=== PATIENT | female | born 1960 | race Caucasian/White ===

== ENCOUNTER 2016-10-05 08:13 | Outpatient (CLI) | payer MEDICARE, MEDICAID ==
[2016-10-05] MEDS ORDERED: IOPAMIDOL-300 100 ML VIAL IVP ONE (09:05)
== END 2016-10-05 08:14 | disposition home or self-care (01) ==
DX: D37.9 Neoplasm of uncertain behavior of digestive organ, unspecified (principal); K76.0 Fatty (change of) liver, not elsewhere classified
CPT/HCPCS: 74177; Q9967

== ENCOUNTER 2016-10-06 15:31 | Emergency (ER) | payer MEDICARE, MEDICAID ==
[2016-10-06] MEDS ORDERED: diazePAM 5 MG TABLET PO STA (16:07)
[2016-10-06] MEDS ORDERED: diazePAM 5 MG TABLET PO ONE (16:14)
== END 2016-10-06 16:30 | disposition home or self-care (01) ==
DX: M54.41 Lumbago with sciatica, right side (principal); M62.830 Muscle spasm of back; M32.9 Systemic lupus erythematosus, unspecified; I10 Essential (primary) hypertension; E03.9 Hypothyroidism, unspecified; J44.9 Chronic obstructive pulmonary disease, unspecified
CPT/HCPCS: 99283; A9270

== ENCOUNTER 2016-11-16 16:00 | Outpatient (CLI) | payer MEDICARE, MEDICAID | END 2016-11-16 16:01 | disposition home or self-care (01) | DX: E06.9 Thyroiditis, unspecified (principal); E53.8 Deficiency of other specified B group vitamins; E61.1 Iron deficiency ==

== ENCOUNTER 2016-11-19 08:00 | Outpatient (CLI) | payer MEDICARE, MEDICAID | END 2016-11-19 08:01 | disposition home or self-care (01) | DX: E03.8 Other specified hypothyroidism (principal); E16.4 Increased secretion of gastrin ==

== ENCOUNTER 2017-02-01 08:01 | Outpatient (CLI) | payer MEDICARE, MEDICAID ==
[2017-02-01] MEDS ORDERED: GADOBUTROL 7.5 MMOL/7.5 ML VIAL IVP ONE ×2 (10:11)
== END 2017-02-01 08:02 | disposition home or self-care (01) ==
DX: R90.89 Other abnormal findings on diagnostic imaging of central nervous system (principal); R41.3 Other amnesia; Z51.81 Encounter for therapeutic drug level monitoring
CPT/HCPCS: 70553; 80053; A9585

== ENCOUNTER 2017-02-13 08:00 | Outpatient (CLI) | payer MEDICAID, MEDICARE | END 2017-02-13 08:01 | disposition home or self-care (01) | DX: K29.40 Chronic atrophic gastritis without bleeding (principal); E53.8 Deficiency of other specified B group vitamins ==

== ENCOUNTER 2017-03-27 13:50 | Outpatient (CLI) | payer MEDICARE, MEDICAID ==
[2017-03-27 20:16] LABS: THYROID STIMULATING HORMONE < 0.08 uIU/mL (0.34-5.60)
== END 2017-03-27 13:51 ==
LOC: LAB.WCP 13:50
PROVIDERS: ATTEND Physician Assistant Medical
DX: E03.9 Hypothyroidism, unspecified (principal)
CPT/HCPCS: 36415; 84439; 84443

== ENCOUNTER 2017-03-30 00:33 | Emergency (ER) | payer MEDICARE, MEDICAID ==
[2017-03-30 00:42] VITALS: BP 139/85
--- NOTE | 2017-03-30 00:59 | ED Physician Documentation ---
History of Present Illness - Stated complaint Stated Complaint: BODYACHE - Chief complaint Chief Complaint: General - History obtained from History obtained from: Patient - History of Present Illness Timing: Enter time (22:00) Improved by: no ameliorating factors Worsened by: no exacerbating factors - Additonal information Additional information: c/o sudden onset "whole body was shaking" (per patient) while lying in bed 10 PM tonight. She denies LOC and symptoms have completely resolved. Denies h/o similar symptoms. Review of Systems Constitutional: denies: Fever, Chills, Sweats Eyes: reports: Reviewed and negative Ears: reports: Reviewed and negative Cardiac: reports: Reviewed and negative Respiratory: reports: Reviewed and negative GI: reports: Reviewed and negative : denies: Dysuria, Frequency Neurologic: reports: Reviewed and negative PD PAST MEDICAL HISTORY - Past Medical History Cardiovascular: Hypertension, High cholesterol Respiratory: COPD, Emphysema, Sleep apnea Neuro: Headache/migraine, Other Endocrine/Autoimmune: HyPOthyroidism, Systemic lupus erythematosus, Other GI: GERD, Ulcers, Colon polyps : Incontinence HEENT: None Psych: Depression, Panic attacks Musculoskeletal: Fibromyalgia, Fatigue, Chronic back pain Derm: None - Past Surgical History General: Cholecystectomy, 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: Hysterectomy HEENT: Tonsil/Adenoidectomy - Present Medications Home Medications: Ambulatory Orders Medication Instructions Recorded Confirmed Albuterol Sulfate [Proair Hfa] 2 inh INH BID PRN 03/02/16 03/30/17 Dicyclomine HCl 2 cap PO BID 03/02/16 03/30/17 Hydrocodone/Acetaminophen [[place] 1 tab PO TID 03/02/16 03/30/17 10-325 Tablet] Levothyroxine Sodium [Levoxyl] 150 mg PO DAILY 03/02/16 03/30/17 Losartan/Hydrochlorothiazide 12.5 mg ORAL DAILY 03/02/16 03/30/17 [Hyzaar 100-12.5 Tablet] Pantoprazole Sodium 1 tab ORAL DAILY 03/02/16 03/30/17 Zolpidem [Ambien] 10 mg PO DAILY 03/02/16 03/30/17 raNITIdine [Zantac] 150 mg PO BID 03/02/16 03/30/17 Budesonide/Formoterol 80/4.5 60 puffs INH DAILY 03/02/17 07/01/17 [Symbicort] Fluoxetine HCl [Prozac] 40 mg PO DAILY 11/29/16 03/30/17 Linaclotide [Linzess] 290 mcg ORAL DAILY 03/30/17 03/30/17 Ondansetron HCl [Zofran] 4 mg ORAL TID 03/30/17 03/30/17 Oxybutynin Chloride [Ditropan Xl] 15 mg ORAL DAILY 03/30/17 03/30/17 Sucralfate 1 gm ORAL BID 03/30/17 03/30/17 - Allergies Allergies/Adverse Reactions: Allergies Allergy/AdvReac Type Severity Reaction Status Date / Time No Known Drug Allergies Allergy Verified 03/30/17 00:42 - Social History Does the pt smoke?: No Smoking Status: Former smoker - Immunizations Immunizations are current?: Yes PD ED PE NORMAL - Vitals Vital signs reviewed: Yes - General General: Alert and oriented X 3, No acute distress, Well developed/nourished - HEENT HEENT: PERRL, EOMI, Moist mucous membranes - Cardiac Cardiac: RRR, No murmur - Respiratory Respiratory: No respiratory distress, Clear bilaterally - Abdomen Abdomen: Soft, Non tender - Derm Derm: Normal color, Warm and dry - Extremities Extremities: No edema - Neuro Neuro: Alert and oriented X 3, hand suture winder 2-12 intact, No motor deficit, No sensory deficit, Normal speech Results - Vitals Vitals: Vital Signs - 24 hr 03/30/17 00:38 Temperature 36.8 C Heart Rate 72 Respiratory 16 Rate Blood Pressure 139/85 H O2 Saturation 97 Oxygen O2 Source Room air PD MEDICAL DECISION MAKING - ED course Complexity details: considered differential, d/w patient ED course: Patient describes nonrhythmic shaking of body and limbs which has completely resolved. She is in NAD and her physical exam is unremarkable. Emergent is not indicated at this time, and patient expresses understanding of plan to d/c without testing, will return if worse. Departure - Departure Disposition: 01 Home, Self Care Clinical Impression: Episode of shaking Condition: Good Instructions: ED Sciatica Discharge Date/Time: 03/30/17 01:27
== END 2017-03-30 01:27 | disposition home or self-care (01) ==
LOC: ED 00:33
DX: R25.9 Unspecified abnormal involuntary movements (principal); J44.9 Chronic obstructive pulmonary disease, unspecified; I10 Essential (primary) hypertension; E03.9 Hypothyroidism, unspecified; K21.9 Gastro-esophageal reflux disease without esophagitis; F41.0 Panic disorder [episodic paroxysmal anxiety]; F32.9 Major depressive disorder, single episode, unspecified; Z90.710 Acquired absence of both cervix and uterus; Z90.49 Acquired absence of other specified parts of digestive tract; Z87.891 Personal history of nicotine dependence
CPT/HCPCS: 99282; 99283

== ENCOUNTER 2017-04-11 10:03 | Outpatient (CLI) | payer MEDICAID, MEDICARE ==
[2017-04-11] MEDS ORDERED: BARIUM SULFATE 454 GM TUBE PO ONE (10:52)
[2017-04-11] MEDS ORDERED: BARIUM SULFATE 135 ML BOTTLE PO ONE (10:52)
--- NOTE | 2017-04-11 11:49 | XRAY Report ---
ESOPHAGRAM: 04/11/2017 CLINICAL INDICATION: Heartburn, atrophic gastritis. FINDINGS: Esophagram was performed in the upright and prone positions. The esophagus is normal in c aliber. The hypopharynx appears unremarkable. Diffuse tertiary contractions are seen. No ulceratio n or mass lesion is present. Reflux was visualized during the course of the exam. IMPRESSION: PRESBYESOPHAGUS. GASTROESOPHAGEAL REFLUX. NO EVIDENCE OF ULCER OR MASS LESION. FLUOROSCOPY TIME: 2 minutes, 4 seconds; 24 spot images obtained. JOB #: [id number] EXT JOB #:[id number]
== END 2017-04-11 10:04 | disposition home or self-care (01) ==
LOC: DI 10:03
PROVIDERS: ATTEND Physician Assistant Medical
DX: K22.8 Other specified diseases of esophagus (principal); K21.9 Gastro-esophageal reflux disease without esophagitis
CPT/HCPCS: 74220; A9270

== ENCOUNTER 2017-04-22 10:58 | Outpatient (CLI) | payer MEDICARE, MEDICAID | END 2017-04-22 10:59 | disposition home or self-care (01) | LOC: SC 10:58 | PROVIDERS: ATTEND Internal Medicine Pulmonary Disease | DX: G47.10 Hypersomnia, unspecified (principal); G47.8 Other sleep disorders; R51 Headache; G47.00 Insomnia, unspecified; R06.83 Snoring | CPT/HCPCS: 99203; G0463; 99212 ==

== ENCOUNTER 2017-05-13 19:41 | Outpatient (CLI) | payer MEDICARE, MEDICAID | END 2017-05-13 19:42 | disposition home or self-care (01) | LOC: SC 19:41 | PROVIDERS: ATTEND Internal Medicine Pulmonary Disease | DX: G47.61 Periodic limb movement disorder (principal); G47.31 Primary central sleep apnea | CPT/HCPCS: 95810 ==

== ENCOUNTER 2017-05-27 10:52 | Outpatient (CLI) | payer MEDICARE, MEDICAID ==
--- NOTE | 2017-05-27 16:20 | Nuclear Medicine Report ---
EXAM: GASTRIC EMPTYING STUDY EXAM DATE: 05/27/2017 11:33 AM. CLINICAL HISTORY: NAUSEA AND VOMITING. COMPARISON: None. TECHNIQUE: A standard meal was radiolabeled with 0.8 mCi Tc-99m sulfur colloid according to protocol. Following the p.o. administration of this meal, the patient underwent multiple static images over th e abdomen from the FRENCH projections, at approximately 0, 1, 2, 3, and 4 hours following the ingestion of the meal. Region of interest analysis was employed, and percent emptied/percent remaining of the meal was calculated using both the geometric mean and decay corrections. FINDINGS: Calculations demonstrate: TIME (hours) Percent remaining. Normal values for percent remaining. 1 hour: 72% (30-90%) 2 hours: 45% (0-60%) 3 hours: 13% (030%) 4 hours: 0% (0-10%) IMPRESSION: Normal gastric emptying. [facility] Referring Provider Line: [phone] SITE ID: [id number]
== END 2017-05-27 10:53 | disposition home or self-care (01) ==
LOC: DI 10:52
PROVIDERS: ATTEND Physician Assistant Medical
DX: R11.2 Nausea with vomiting, unspecified (principal)
CPT/HCPCS: 78265; A9541

== ENCOUNTER 2017-05-29 13:35 | Outpatient (CLI) | payer MEDICARE, MEDICAID | END 2017-05-29 13:36 | disposition home or self-care (01) | LOC: SC 13:35 | PROVIDERS: ATTEND Nurse Practitioner Family | DX: R06.81 Apnea, not elsewhere classified (principal); G47.61 Periodic limb movement disorder | CPT/HCPCS: 99213; G0463; 99212 ==

== ENCOUNTER 2017-06-06 22:21 | Outpatient (CLI) | payer MEDICARE, MEDICAID | END 2017-06-06 22:22 | disposition home or self-care (01) | LOC: LAB.R 22:21 | PROVIDERS: ATTEND Physician Assistant Medical | DX: B97.89 Other viral agents as the cause of diseases classified elsewhere (principal); R68.83 Chills (without fever) | CPT/HCPCS: 87275; 87276 ==

== ENCOUNTER 2017-07-01 19:19 | Outpatient (CLI) | payer MEDICARE, MEDICAID | END 2017-07-01 19:20 | disposition home or self-care (01) | LOC: SC 19:19 | PROVIDERS: ATTEND Internal Medicine Pulmonary Disease | DX: G47.31 Primary central sleep apnea (principal); G47.61 Periodic limb movement disorder | CPT/HCPCS: 95811 ==

== ENCOUNTER 2017-07-16 09:05 | Outpatient (CLI) | payer MEDICARE, MEDICAID | END 2017-07-16 09:06 | disposition home or self-care (01) | LOC: SC 09:05 | PROVIDERS: ATTEND Nurse Practitioner Family | DX: G47.31 Primary central sleep apnea (principal); G47.61 Periodic limb movement disorder | CPT/HCPCS: 99214; G0463; 99212 ==

== ENCOUNTER 2017-09-10 08:59 | Outpatient (CLI) | payer MEDICARE, MEDICAID | END 2017-09-10 09:00 | disposition home or self-care (01) | LOC: SC 08:59 | PROVIDERS: ATTEND Nurse Practitioner Family | DX: G47.31 Primary central sleep apnea (principal) | CPT/HCPCS: 99214; G0463; 99212 ==

== ENCOUNTER 2017-10-11 13:36 | Emergency (ER) | payer MEDICARE, MEDICAID ==
--- NOTE | 2017-10-11 14:44 | ED Physician Documentation ---
PD HPI URI - Stated complaint Stated Complaint: HIGH BP/HEADACHE - Chief complaint Chief Complaint: General - History obtained from History obtained from: Patient - History of Present Illness Timing - onset: How many weeks ago (few) Timing duration: Weeks (she had had some URI symptoms end July and then continued with sinus pressure and drainage. Seen by PMD and Rx with antibiotic ( Zpack) and steroids, with some improvement but not fully. Now with symptoms worsening again the past few days. She noted her BP to be elevated today and it stayed that way with several readings. She talked with business intelligence consultant for her PMD, who directed her to come to the ER. She noted BP about 160-180 systolic. She says her usual is 130-140.) Timing details: Gradual onset, Waxing and waning Associated symptoms: Nasal congestion, Sinus pain. No: Fever, Sore throat, Dry cough, Dyspnea, NVD, Bilateral edema, Unilateral edema Contributing factors: No: Sick contact, Travel, Immunocompromised, COPD / asthma Similar symptoms before: Has not had sx before Recently seen: Clinic (about 2 weeks ago and given Zpack and few days steroids, with some improvement but not complete and now back/worse symptoms again.) Review of Systems Constitutional: denies: Fever, Chills Eyes: denies: Loss of vision, Decreased vision, Photophobia Nose: reports: Congestion, Sinus pressure / pain Throat: denies: Sore throat Respiratory: denies: Cough Neurologic: reports: Headache (frontal sinus area). 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 HEENT: Tonsil/Adenoidectomy - Present Medications Home Medications: Ambulatory Orders Medication Instructions Recorded Confirmed Albuterol Sulfate [Proair Hfa] 2 inh INH BID PRN 03/02/16 10/11/17 Dicyclomine HCl 2 cap PO BID 03/02/16 10/11/17 Hydrocodone/Acetaminophen [[place] 1 tab PO TID 03/02/16 10/11/17 10-325 Tablet] Levothyroxine Sodium [Levoxyl] 150 mg PO DAILY 03/02/16 10/11/17 Losartan/Hydrochlorothiazide 12.5 mg ORAL DAILY 03/02/16 10/11/17 [Hyzaar 100-12.5 Tablet] Pantoprazole Sodium 1 tab ORAL DAILY 03/02/16 10/11/17 Zolpidem [Ambien] 10 mg PO DAILY 03/02/16 10/11/17 raNITIdine [Zantac] 150 mg PO BID 03/02/16 10/11/17 Budesonide/Formoterol 80/4.5 60 puffs INH DAILY 11/29/16 10/11/17 [Symbicort] Fluoxetine HCl [Prozac] 40 mg PO DAILY 11/29/16 10/11/17 Linaclotide [Linzess] 290 mcg ORAL DAILY 03/30/17 10/11/17 Ondansetron HCl [Zofran] 4 mg ORAL TID 03/30/17 10/11/17 Oxybutynin Chloride [Ditropan Xl] 15 mg ORAL DAILY 03/30/17 10/11/17 Sucralfate 1 gm ORAL BID 03/30/17 10/11/17 Cephalexin [Keflex] 500 mg PO TID #21 capsule 10/11/17 Cetirizine [ZyrTEC] 10 mg PO DAILY #30 tablet 10/11/17 Dexamethasone [Decadron] 4 mg PO DAILY #5 tablet 10/11/17 Nortriptyline [Pamelor] DAILY 10/11/17 Oxycodone HCl/Acetaminophen 1 each PO Q6H PRN #15 tablet 10/11/17 [Percocet 5-325 mg Tablet] Scopolamine PRN 10/11/17 Tiotropium [place] [Spiriva] DAILY 10/11/17 - Allergies Allergies/Adverse Reactions: Allergies Allergy/AdvReac Type Severity Reaction Status Date / Time No Known Drug Allergies Allergy Verified 03/30/17 00:42 - Social History Does the pt smoke?: No Smoking Status: Never smoker Does the pt drink ETOH?: No Does the pt have substance abuse?: Yes Substance Use and Type: Marijuana - Immunizations Immunizations are current?: Yes - POLST Patient has POLST: No PD ED PE NORMAL - Vitals Vital signs reviewed: Yes - General General: Alert and oriented X 3, No acute distress, Well developed/nourished - HEENT HEENT: Ears normal, Pharynx benign, Other (frontal sinus tender to percussion) - Neck Neck: Supple, no meningeal sign, No adenopathy - Cardiac Cardiac: RRR, No murmur - Respiratory Respiratory: Clear bilaterally - Derm Derm: Normal color, Warm and dry, No rash - Neuro Neuro: Alert and oriented X 3, cigarette book maker 2-12 intact, No motor deficit, No sensory deficit, Normal speech Results - Vitals Vitals: Oxygen O2 Source Room air PD MEDICAL DECISION MAKING - ED course Complexity details: considered differential (her headache sounds like sinusitis. Does not sound like abscess. ), d/w patient Departure - Departure Disposition: 01 Home, Self Care Clinical Impression: Sinusitis Qualifiers: Sinusitis location: frontal Chronicity: acute Recurrence: non-recurrent Qualified Code(s): J01.10 - Acute frontal sinusitis, unspecified High blood pressure Qualifiers: Hypertension type: other secondary hypertension Qualified Code(s): I15.8 - Other secondary hypertension Condition: Stable Record reviewed to determine appropriate education?: Yes Instructions: ED Hypertension Poss, ED Headache Sinus Follow-Up: Chasity Larsen PA-C [Primary Care Provider] - Prescriptions: Cephalexin [Keflex] 500 mg PO TID #21 capsule Cetirizine [ZyrTEC] 10 mg PO DAILY #30 tablet Dexamethasone [Decadron] 4 mg PO DAILY #5 tablet Oxycodone HCl/Acetaminophen [Percocet 5-325 mg Tablet] 1 each PO Q6H PRN #15 tablet PRN Reason: Pain Comments: Drink lots of fluids. He can use antihistamine such as Zyrtec daily. Will try a different steroid and antibiotic for the sinuses and so take Decadron and cephalexin. Use Percocet if needed for pain. Your blood pressure elevation here is likely responding to the pain, illness, side effect of medications. Recheck and see how it is doing once you are feeling well and off the steroids. Follow-up with your primary care if not improving over the next several days. Discharge Date/Time: 10/11/17 16:10
[2017-10-11] MEDS ORDERED: oxyCOD/ACETAMIN 5 MG/325 MG TABLET PO STA (15:22)
[2017-10-11] MEDS ORDERED: DEXAMETHASONE 10 MG/ML VIAL PO STA (15:23)
[2017-10-11] MEDS ORDERED: AMOXICILLIN 250 MG CAPSULE PO STA (15:23)
[2017-10-11 16:08] VITALS: BP 145/93
== END 2017-10-11 16:10 | disposition home or self-care (01) ==
LOC: ED 13:36
DX: J01.10 Acute frontal sinusitis, unspecified (principal); I15.8 Other secondary hypertension; E78.00 Pure hypercholesterolemia, unspecified; E03.9 Hypothyroidism, unspecified; M32.9 Systemic lupus erythematosus, unspecified
CPT/HCPCS: 99283; A9270

== ENCOUNTER 2017-11-12 08:51 | Outpatient (CLI) | payer MEDICARE, MEDICAID | END 2017-11-12 08:52 | disposition home or self-care (01) | LOC: SC 08:51 | PROVIDERS: ATTEND Nurse Practitioner Family | DX: G47.31 Primary central sleep apnea (principal) | CPT/HCPCS: 99214; G0463; 99212 ==

== ENCOUNTER 2017-11-22 07:53 | Outpatient (CLI) | payer MEDICARE, MEDICAID ==
[2017-11-22 12:37] LABS: BASOPHILS % (AUTO) 0.5 %; EOSINOPHILS # (AUTO) 0.8 10^3/uL (0.0-0.7); EOSINOPHILS % (AUTO) 9.2 %; LYMPHOCYTES # (AUTO) 2.5 10^3/uL (1.5-3.5); LYMPHOCYTES % (AUTO) 29.7 %; MEAN CORPUSCULAR HEMOGLOBIN 32.9 pg (27.0-31.0); MEAN CORPUSCULAR HGB CONC 33.6 g/dL (32.0-36.0); MEAN CORPUSCULAR VOLUME 97.9 fL (81.0-99.0); MONOCYTES # (AUTO) 0.6 10^3/uL (0.0-1.0); NEUTROPHILS # (AUTO) 4.5 10^3/uL (1.5-6.6); NEUTROPHILS % (AUTO) 53.6 %; PLT - PLATELET COUNT 281 10^3/uL (130-450); RED BLOOD COUNT 4.26 10^6/uL (4.20-5.40); RED CELL DISTRIBUTION WIDTH 13.4 % (12.0-15.0); WHITE BLOOD COUNT 8.5 x10^3/uL (4.8-10.8)
[2017-11-22 13:04] LABS: ALBUMIN 3.9 g/dL (3.2-5.5); ALKALINE PHOSPHATASE 127 IU/L (42-121); ALT ALANINE AMINOTRANSFERASE 18 IU/L (10-60); AST ASPARTATE AMINOTRANSFERASE 24 IU/L (10-42); BILIRUBIN,TOTAL 0.5 mg/dL (0.2-1.0); BUN - BLOOD UREA NITROGEN 12 mg/dL (6-20); CALCIUM 9.5 mg/dL (8.5-10.3); CARBON DIOXIDE - CO2 24 mmol/L (21-32); CHLORIDE 103 mmol/L (101-111); CHOL/HDL RATIO 5.4 (<4.4); CHOLESTEROL 255 mg/dL; CREATININE 0.8 mg/dL (0.4-1.0); GFR - MDRD 74 (>89); GLUCOSE 100 mg/dL (70-100); HDL CHOLESTEROL 47 mg/dL; LDL CHOLESTEROL,CALCULATED 185 mg/dL; LDL/HDL RATIO 3.9 (<4.4); SODIUM 136 mmol/L (135-145); VLDL CHOLESTEROL 23 mg/dL
[2017-11-22 13:12] LABS: THYROID STIMULATING HORMONE 5.6 uIU/mL (0.34-5.60)
[2017-11-22 14:05] LABS: FREE T4 (FREE THYROXINE) 0.74 ng/dL (0.58-1.64)
== END 2017-11-22 07:54 | disposition home or self-care (01) ==
LOC: LAB.WCP 07:53
PROVIDERS: ATTEND Physician Assistant Medical
DX: Z00.00 Encounter for general adult medical examination without abnormal findings (principal); E53.8 Deficiency of other specified B group vitamins
CPT/HCPCS: 36415; 80053; 80061; 82607; 83721; 84439; 84443; 85025

== ENCOUNTER 2018-02-04 08:00 | Outpatient (CLI) | payer MEDICARE, MEDICAID | END 2018-02-04 08:01 | disposition home or self-care (01) | LOC: LAB.WCP 08:00 | PROVIDERS: ATTEND Physician Assistant Medical | DX: Z79.891 Long term (current) use of opiate analgesic (principal) | CPT/HCPCS: 80307; 81599; G0480; 80361; 80365 ==

== ENCOUNTER 2018-02-09 18:49 | Inpatient (IN) | payer MEDICAID, MEDICARE ==
[2018-02-09] MEDS ORDERED: IPRATROPIUM/ALBUTEROL 3 ML NEB INH STA (19:43)
--- NOTE | 2018-02-09 19:50 | ED Physician Documentation ---
PD HPI DYSPNEA - Stated complaint Stated Complaint: SOA - Chief complaint Chief Complaint: Resp - History obtained from History obtained from: Patient - History of Present Illness Timing - onset: Other (57-year-old woman with COPD, wears BiPAP at night and normally takes Symbicort and Spiriva and as needed albuterol. She has been sick for a few days and started oral prednisone, 40 mg a day which she has had for 3 days. She has not gotten better but has not really gotten worse either. She has had a productive cough with yellow sputum and shortness of breath but no fevers. She denies pedal edema or chest pain except when she is coughing.) Review of Systems Constitutional: denies: Fever, Chills Cardiac: denies: Chest pain / pressure, Palpitations Respiratory: reports: Dyspnea, Cough GI: denies: Abdominal Pain PD PAST MEDICAL HISTORY - Past Medical History Cardiovascular: Hypertension, High cholesterol Respiratory: Asthma, COPD, Emphysema, Sleep apnea Endocrine/Autoimmune: HyPOthyroidism, Systemic lupus erythematosus, Other GI: GERD, Ulcers, Colon polyps : Incontinence HEENT: None Psych: Depression, Panic attacks Musculoskeletal: Fibromyalgia, Fatigue, Chronic back pain Derm: None - Past Surgical History General: Cholecystectomy, 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 HEENT: Tonsil/Adenoidectomy - Present Medications Home Medications: Ambulatory Orders Medication Instructions Recorded Confirmed Albuterol Sulfate [Proair Hfa] 2 inh INH BID PRN 03/02/16 10/11/17 Dicyclomine HCl 2 cap PO BID 03/02/16 10/11/17 Hydrocodone/Acetaminophen [[place] 1 tab PO TID 03/02/16 10/11/17 10-325 Tablet] Levothyroxine Sodium [Levoxyl] 150 mg PO DAILY 03/02/16 10/11/17 Losartan/Hydrochlorothiazide 12.5 mg ORAL DAILY 03/02/16 10/11/17 [Hyzaar 100-12.5 Tablet] Pantoprazole Sodium 1 tab ORAL DAILY 03/02/16 10/11/17 Zolpidem [Ambien] 10 mg PO DAILY 03/02/16 10/11/17 raNITIdine [Zantac] 150 mg PO BID 03/02/16 10/11/17 Budesonide/Formoterol 80/4.5 60 puffs INH DAILY 11/29/16 10/11/17 [Symbicort] Fluoxetine HCl [Prozac] 40 mg PO DAILY 11/29/16 10/11/17 Linaclotide [Linzess] 290 mcg ORAL DAILY 03/30/17 10/11/17 Ondansetron HCl [Zofran] 4 mg ORAL TID 03/30/17 10/11/17 Oxybutynin Chloride [Ditropan Xl] 15 mg ORAL DAILY 03/30/17 10/11/17 Sucralfate 1 gm ORAL BID 03/30/17 10/11/17 Cephalexin [Keflex] 500 mg PO TID #21 capsule 10/11/17 Cetirizine [ZyrTEC] 10 mg PO DAILY #30 tablet 10/11/17 Dexamethasone [Decadron] 4 mg PO DAILY #5 tablet 10/11/17 Nortriptyline [Pamelor] DAILY 10/11/17 Oxycodone HCl/Acetaminophen 1 each PO Q6H PRN #15 tablet 10/11/17 [Percocet 5-325 mg Tablet] Scopolamine PRN 10/11/17 Tiotropium [place] [Spiriva] DAILY 10/11/17 - Allergies Allergies/Adverse Reactions: Allergies Allergy/AdvReac Type Severity Reaction Status Date / Time zolpidem [From Ambien] Allergy Unknown Verified 02/09/18 18:56 - Social History Does the pt smoke?: No Smoking Status: Former smoker Does the pt drink ETOH?: No Does the pt have substance abuse?: Yes - Immunizations Immunizations are current?: Yes - POLST Patient has POLST: No PD ED PE NORMAL - Vitals Vital signs reviewed: Yes - General General: Alert and oriented X 3, No acute distress - HEENT HEENT: PERRL, EOMI - Neck Neck: Supple, no meningeal sign, No bony TTP - Cardiac Cardiac: RRR, No murmur - Respiratory Respiratory: Other (Nonlabored but tight and wheezy throughout, speaking in full sentences.) - Abdomen Abdomen: Non tender - Back Back: No CVA TTP, No spinal TTP - Derm Derm: Normal color, Warm and dry - Extremities Extremities: No edema, No calf tenderness / cord - Neuro Neuro: Alert and oriented X 3, Normal speech - Psych Psych: Normal mood, Normal affect Results - Vitals Vitals: Vital Signs - 24 hr 02/09/18 02/09/18 02/09/18 18:53 19:35 19:53 Temperature 36.3 C L Heart Rate 119 H 81 102 H Respiratory 20 20 21 Rate Blood Pressure 134/84 H 115/82 H O2 Saturation 92 87 L 90 L 02/09/18 02/09/18 02/09/18 20:17 20:55 21:11 Temperature Heart Rate 106 H 107 H 106 H Respiratory 22 25 H 24 Rate Blood Pressure 115/89 H 111/82 H O2 Saturation 90 L 87 L 02/09/18 02/09/18 21:45 22:17 Temperature Heart Rate 110 H 107 H Respiratory 21 15 Rate Blood Pressure 101/75 O2 Saturation 94 Oxygen O2 Source Nasal cannula - Labs Labs: Laboratory Tests 02/09/18 02/09/18 02/09/18 21:25 21:25 21:25 WBC 9.5 RBC 4.24 Hgb 13.6 Hct 41.1 MCV 97.0 MCH 32.1 H MCHC 33.1 RDW 13.1 Plt Count 330 MPV 7.7 L Neut # 7.0 H Lymph # 1.7 [place] # 0.7 Eos # 0.0 Baso # 0.1 Absolute Nucleated RBC 0.01 Nucleated RBC % 0.1 Sodium 137 Potassium 4.0 Chloride 104 Carbon Dioxide 21 Anion Gap 12.0 BUN 13 Creatinine 0.6 Estimated GFR (MDRD) 103 Glucose 120 H Calcium 9.9 Total Bilirubin 0.8 AST 27 ALT 34 Alkaline Phosphatase 136 H Troponin I < 0.04 Total Protein 8.2 Albumin 3.9 Globulin 4.3 H Albumin/Globulin Ratio 0.9 L Lipase < 10 L - Rads (name of study) 1v chest Radiology: EMP read contemporaneously (normal) PD MEDICAL DECISION MAKING - ED course ED course: 57-year-old woman. COPD, wears BiPAP at night but no home oxygen presents with apparent COPD exacerbation despite having been on a few days of oral steroids already with intermittent hypoxemia here and need for supplemental oxygen despite repeated breathing treatments in the department. Spoke with Dr. Pelayo for admission at 9:55 PM. Departure - Departure Disposition: 66 [facility] DC/Xfer Clinical Impression: COPD exacerbation, Hypoxemia Condition: Serious Discharge Date/Time: 02/09/18 22:35
[2018-02-09] MEDS ORDERED: ALBUTEROL NEB 2.5 MG/3 ML INH STA (21:12)
[2018-02-09] MEDS ORDERED: cefTRIAXone 1 GM in SODIUM CHLORIDE 0.9% MINIBAG 100 ML IV STA (21:12)
[2018-02-09] MEDS ORDERED: methylPREDNISolone SUCCINATE 125 MG/2 ML VIAL IVP STA (21:13)
[2018-02-09 21:28] LABS: BASOPHILS # (AUTO) 0.1 10^3/uL (0.0-0.1); BASOPHILS % (AUTO) 0.5 %; EOSINOPHILS % (AUTO) 0.2 %; HGB - HEMOGLOBIN 13.6 g/dL (12.0-16.0); LYMPHOCYTES # (AUTO) 1.7 10^3/uL (1.5-3.5); LYMPHOCYTES % (AUTO) 18.4 %; MEAN CORPUSCULAR HEMOGLOBIN 32.1 pg (27.0-31.0); MEAN CORPUSCULAR HGB CONC 33.1 g/dL (32.0-36.0); MEAN PLATELET VOLUME 7.7 fL (7.9-10.8); MONOCYTES # (AUTO) 0.7 10^3/uL (0.0-1.0); NEUTROPHILS % (AUTO) 73.9 %; PLT - PLATELET COUNT 330 10^3/uL (130-450); RED BLOOD COUNT 4.24 10^6/uL (4.20-5.40); RED CELL DISTRIBUTION WIDTH 13.1 % (12.0-15.0); WHITE BLOOD COUNT 9.5 x10^3/uL (4.8-10.8)
--- NOTE | 2018-02-09 21:46 | XRAY Preliminary Report ---
Exam: XR CHEST 1 VIEW X-RAY IMPRESSION: Normal single view chest. [facility] SITE ID: [id number]
--- NOTE | 2018-02-09 21:46 | XRAY Report ---
EXAM: CHEST RADIOGRAPHY EXAM DATE: 02/09/2018 09:23 PM. CLINICAL HISTORY: Dyspnea. History of COPD. COMPARISON: 04/18/2017. TECHNIQUE: 1 view. FINDINGS: Lungs/Pleura: No focal consolidation or evidence of edema. No pleural effusion or pneumothorax. Mediastinum: Normal cardiomediastinal contour. Other: The bones are unremarkable. IMPRESSION: Normal single view chest. [facility] Referring Provider Line: [phone] SITE ID: [id number]
[2018-02-09 21:52] LABS: ALBUMIN 3.9 g/dL (3.2-5.5); ALBUMIN/GLOBULIN RATIO 0.9 (1.0-2.2); ALKALINE PHOSPHATASE 136 IU/L (42-121); ALT ALANINE AMINOTRANSFERASE 34 IU/L (10-60); AST ASPARTATE AMINOTRANSFERASE 27 IU/L (10-42); BILIRUBIN,TOTAL 0.8 mg/dL (0.2-1.0); BUN - BLOOD UREA NITROGEN 13 mg/dL (6-20); CALCIUM 9.9 mg/dL (8.5-10.3); CARBON DIOXIDE - CO2 21 mmol/L (21-32); CHLORIDE 104 mmol/L (101-111); CREATININE 0.6 mg/dL (0.4-1.0); GFR - MDRD 103 (>89); GLUCOSE 120 mg/dL (70-100); SODIUM 137 mmol/L (135-145); TOTAL PROTEIN 8.2 g/dL (6.7-8.2)
[2018-02-09 21:59] LABS: LIPASE < 10 U/L (22-51)
[2018-02-09] MEDS ORDERED: ZOLPIDEM 5 MG TABLET PO PRN (22:20)
[2018-02-09] MEDS ORDERED: ONDANSETRON 4 MG/2 ML VIAL IVP PRN (22:20)
[2018-02-09] MEDS ORDERED: PROCHLORPERAZINE 10 MG/2 ML VIAL IVP PRN (22:20)
[2018-02-09] MEDS ORDERED: ALBUTEROL NEB 2.5 MG/3 ML INH PRN (22:24)
[2018-02-09] MEDS ORDERED: SODIUM CHLORIDE 0.9% 1,000 ML IV ONE (22:31)
--- NOTE | 2018-02-10 00:32 | HISTORY & PHYSICAL EXAMINATION ---
DATE OF SERVICE: 02/09/2018 Physician: Janine Pelayo MD CHIEF COMPLAINT: Shortness of breath. HISTORY OF PRESENT ILLNESS: Ms. Irizarry is a 57-year-old white female with past medical history of cigarette smoking, quit three years ago, with history of COPD, no history of oxygen dependence; however, using nocturnal BiPAP for obstructive sleep apnea. She presented to the ER complaining of five days history of productive cough with greenish sputum, cold-like symptoms and progressively worsening shortness of breath. She did not check her temperature and does not know if she has had fever; however, she had sweats and chills. In the past when she had outpatient visit with her primary care provider, she got a p.r.n. prescription for prednisone. She was instructed to take the prednisone when her respiratory symptoms get worse. Three days ago, she filled the prescription and started to take the prednisone , had been on 40 mg daily for the past three days. Regardless, her symptoms did not improve; therefore, she came to the ER. Upon presentation to the ER, the patient had low oxygen saturation at 87% on room air. Heart rate was between 100 and 110, blood pressure was 110/80, temperature was 36.4 Celsius, respiratory rate was in the mid 20s, around 25. ER workup included a chest x- ray which did not show infiltrate. Troponin negative. Laboratory grossly unremarkable including normal white blood cell count. At the ER, the patient received IV Solu-Medrol, small volume nebulizers multiple times. Regardless, she continued with hypoxia and required supplemental oxygen. She also received ceftriaxone for bronchitis. PRIMARY CARE PROVIDER: Alexandra Montana PA-C. PAST MEDICAL HISTORY 1. COPD/history of smoking, quit in 2014. No history of home oxygen use. 2. Obstructive sleep apnea, using nocturnal BiPAP. 3. Gastroesophageal reflux. 4. Chronic pain secondary to degenerative disk disease of the cervical spine. 5. Overactive bladder. 6. Hypertension. 7. Hypothyroidism. 8. History of lupus. In the past was on prednisone for lupus and also was on methotrexate, most recently has not been on any medication for the lupus. 9. History of longstanding gastrointestinal symptoms including chronic abdominal pain, bloating, nausea and vomiting, for which the patient underwent outpatient workup, she had been under the care of nail assembly machine operator, had multiple endoscopies and is being worked up for gastric tumor. The patient reports that her gastrin level was high in the past. OUTPATIENT MEDICATIONS: Current medication list is not updated. FAMILY HISTORY: Positive for coronary artery disease. SOCIAL HISTORY: The patient quit smoking in 2015. She is functional with activities of daily living. REVIEW OF SYSTEMS: Please see pertinent positives listed above at history of present illness. In addition, the patient reported a history of chronic abdominal pain, bloating , nausea and vomiting, which had been present for about five to six years, had been worse during the past two years, but has not changed recently. I completed 12-point review, there was no additional complaint. PHYSICAL EXAMINATION VITAL SIGNS: See listed above at history of recent illness. GENERAL: The patient is a well-developed, chronically ill-appearing female, who had increased work of breathing. RESPIRATORY: Decreased air entry above all lung mercedes with increased expiratory/inspiratory ratio. Diffuse wheezes, no crackles. CARDIOVASCULAR: S1, S2. Regular tachycardia. I could not hear a pathologic murmur. ABDOMEN: Soft, benign, nontender. Bowel tones present. LYMPH: No lymphedema. MUSCULOSKELETAL: Atraumatic. MOUTH: Oral mucosa dry. No oral ulcers, no thrush. SKIN: No jaundice. No pallor. NEUROLOGIC: Alert, oriented, nonfocal. PSYCHIATRIC: Cooperative. ASSESSMENT AND PLAN/ACTIVE ISSUES/DIAGNOSES 1. Acute hypoxic respiratory failure requiring supplemental oxygen. 2. Chronic obstructive pulmonary disease exacerbation. 3. Acute bronchitis with productive cough and greenish sputum. 4. Obstructive sleep apnea on nocturnal BiPAP. 5. Chronic pain. 6. Multiple chronic medical problems outlined at past medical history. No acute issue. 7. Sinus tachycardia in the setting of chronic obstructive pulmonary disease exacerbation. Negative troponin and unremarkable EKG on admission. 8. Chronic gastrointestinal symptoms, under the care of outpatient nail assembly machine operator, no change in the symptoms recently. 9. CODE STATUS: FULL CODE, which was verified and discussed with the patient. 10. Technically, the patient failed outpatient treatment, took 40 mg prednisone daily prior to coming to the hospital. PLAN AND ORDERS 1. Patient is getting admitted as an inpatient, receiving treatment for COPD exacerbation and acute bronchitis, she requires supplemental oxygen, is receiving IV steroid, proton pump inhibitor, bronchodilators, incentive spirometry, small volume nebulizers. 2. We will continue steroid inhaler. 3. Awaiting medication reconciliation. We will continue home medications when the updated list is available. In the meantime, I have reordered some medications, which seem standard. 4. DVT prophylaxis. 5. Ceftriaxone for acute bronchitis. 6. Continue nocturnal BiPAP per home routine. Time spent with the care of this patient was 50 minutes. ATTESTATION: I certify that the reasonable expectation for this patient is to remain hospitalized for at least 48 hrs, but get discharged or transfer to another facility within 96 hrs. TD: 02/10/2018 00:32 RADHIKA
[2018-02-10] MEDS: HYDROcod/ACETAM 5/325 MG TABLET PO PRN ×2 (02:15→12:26)
[2018-02-10] MEDS: PANTOPRAZOLE 40 MG TABLET PO SCH (06:17)
[2018-02-10] MEDS: methylPREDNISolone SUCCINATE 40 MG/ML VIAL IVP SCH ×3 (06:18→22:30)
[2018-02-10] MEDS: SODIUM CHLORIDE FLUSH 0.9% 10 ML SYRINGE IVP SCH ×3 (06:18→14:15)
[2018-02-10] MEDS ORDERED: BUDESONIDE/FORMOTEROL 80/4.5 MCG INHALER INH SCH ×2 (07:00→09:00)
[2018-02-10] MEDS: LEVOTHYROXINE 125 MCG TABLET PO SCH (07:49)
[2018-02-10] MEDS: SUCRALFATE 1 GM/10 ML UDC PO SCH ×2 (08:01→20:11)
[2018-02-10] MEDS: LOSARTAN 50 MG TABLET PO SCH (08:01)
[2018-02-10] MEDS: CETIRIZINE 10 MG TABLET PO SCH (08:02)
[2018-02-10] MEDS: cefTRIAXone 1 GM in SODIUM CHLORIDE 0.9% MINIBAG 100 ML IV SCH (08:02)
[2018-02-10] MEDS: hydroCHLOROthiazide 12.5 MG CAPSULE PO SCH (08:02)
[2018-02-10] MEDS: POLYETHYLENE GLYCOL 3350 17 GM PACKET PO SCH (08:03)
[2018-02-10] MEDS: ENOXAPARIN 40 MG/0.4 ML SYRINGE SUBQ SCH (08:08)
[2018-02-10] MEDS: OXYBUTYNIN CHLORIDE 15 MG ORAL SCH (08:08)
[2018-02-10] MEDS: IPRATROPIUM/ALBUTEROL 3 ML NEB INH SCH ×2 (08:40→14:01)
[2018-02-10] MEDS: FORMOTEROL FUMARATE NEB 20 MCG/2 ML INH SCH ×2 (08:50→20:19)
[2018-02-10] MEDS: BUDESONIDE 0.5 MG/2 ML NEB INH SCH ×2 (08:50→20:19)
[2018-02-10] MEDS ORDERED: LOSARTAN ORAL SCH (09:00)
[2018-02-10] MEDS ORDERED: HYDROCHLOROTHIAZIDE ORAL SCH (09:00)
[2018-02-10] MEDS ORDERED: FLUoxetine 10 MG CAPSULE PO SCH (09:00)
[2018-02-10] MEDS: guaiFENesin 600 MG TABLET PO SCH ×2 (14:15→20:11)
[2018-02-10] MEDS ORDERED: SODIUM CHLORIDE 0.65% NASAL SPRAY NAS PRN (15:27)
[2018-02-10] MEDS ORDERED: LEVALBUTEROL 1.25 MG/3 ML NEB INH PRN (15:31)
[2018-02-10] MEDS: OXYMETAZOLINE NASAL SPRAY NAS SCH ×2 (15:53→20:12)
[2018-02-10] MEDS: FLUTICASONE NASAL SPRAY NAS SCH (15:53)
[2018-02-10] MEDS ORDERED: DICYCLOMINE 10 MG CAPSULE PO PRN (17:06)
[2018-02-10] MEDS ORDERED: ONDANSETRON ODT 4 MG TABLET TL PRN (17:06)
--- NOTE | 2018-02-10 17:14 | PROVIDER PROGRESS NOTE ---
Subjective - Prog Note Date Prog Note Date: 02/10/18 Prog Note Time: 14:00 - Subjective Pt reports feeling: Improved Current Medications - Current Medications Current Medications: Active Medications Acetaminophen (Tylenol) 650 mg PO Q4HR PRN PRN Reason: Pain 1 to 4 Acetaminophen/Hydrocodone Bitart ([place] 5/325) 1 tab PO Q4HR PRN PRN Reason: Pain 5 to 7 Last Admin: 02/10/18 12:26 Dose: 1 tab Atorvastatin Calcium (Lipitor) 10 mg PO DAILY [facility] Budesonide (Pulmicort) 0.5 mg INH RTBID [facility] Last Admin: 02/10/18 08:50 Dose: 0.5 mg Cetirizine HCl (Zyrtec) 10 mg PO DAILY [facility] Last Admin: 02/10/18 08:02 Dose: 10 mg Dicyclomine HCl (Bentyl) 10 mg PO QID PRN PRN Reason: Abdominal Pain Duloxetine HCl (Cymbalta) 30 mg PO DAILY [facility] Enoxaparin Sodium (Lovenox) 40 mg SUBQ DAILY [facility] Last Admin: 02/10/18 08:08 Dose: 40 mg Fluticasone Propionate (Flonase) 1 sprays PATRICIA DAILY [facility] Last Admin: 02/10/18 15:53 Dose: 1 spr Formoterol Fumarate (Perforomist) 20 mcg INH RTBID [facility] Last Admin: 02/10/18 08:50 Dose: 20 mcg Guaifenesin (Mucinex) 600 mg PO BID [facility] Last Admin: 02/10/18 14:15 Dose: 600 mg Hydrochlorothiazide (Hydrodiuril) 12.5 mg PO DAILY [facility] Last Admin: 02/10/18 08:02 Dose: 12.5 mg Ceftriaxone Sodium 1 gm/ (Sodium Chloride) 100 mls @ 200 mls/hr IV DAILY [facility] Last Infusion: 02/10/18 08:35 Dose: Infused Levalbuterol HCl (Xopenex) 1.25 mg INH Q4H PRN PRN Reason: Shortness of Air/Wheezing Levalbuterol HCl (Xopenex) 1.25 mg INH RTTID [facility] Levothyroxine Sodium (Synthroid) 125 mcg PO QDAC [facility] Last Admin: 02/10/18 07:49 Dose: 125 mcg Losartan Potassium (Cozaar) 100 mg PO DAILY [facility] Last Admin: 02/10/18 08:01 Dose: 100 mg Methylprednisolone (Solu-Medrol (40mg Vial)) 60 mg IVP TID [facility] Last Admin: 02/10/18 14:14 Dose: 60 mg Non-Formulary Medication (Oxybutynin Chloride [Ditropan Xl]) 15 mg ORAL DAILY [facility] Last Admin: 02/10/18 08:08 Dose: Not Given Nortriptyline HCl (Pamelor) 20 mg PO QPM [facility] Ondansetron HCl (Zofran Inj) 4 mg IVP Q6HR PRN PRN Reason: Nausea / Vomiting Ondansetron HCl (Zofran Odt Prepack 2) 4 mg TL TID PRN PRN Reason: Nausea / Vomiting Oxymetazoline HCl (Afrin) 2 sprays PATRICIA BID [facility] Stop: 02/13/18 15:25 Last Admin: 02/10/18 15:53 Dose: 1 spr Pantoprazole Sodium (Protonix) 40 mg PO QDAC [facility] Last Admin: 02/10/18 06:17 Dose: 40 mg Pantoprazole Sodium (Protonix) 40 mg PO DAILY [facility] Polyethylene Glycol (Miralax) 17 gm PO DAILY [facility] Last Admin: 02/10/18 08:03 Dose: Not Given Prochlorperazine Edisylate (Compazine Inj) 10 mg IVP Q6HR PRN PRN Reason: Nausea / Vomiting Sodium Chloride (Normal Saline Flush 0.9%) 10 ml IVP PRN PRN PRN Reason: NEEDED PER PROVIDER ORDERS Sodium Chloride (Normal Saline Flush 0.9%) 10 ml IVP 0100,0900,1700 [facility] Last Admin: 02/10/18 14:15 Dose: 10 ml Sodium Chloride ([place]) 2 sprays PATRICIA Q4HR PRN PRN Reason: Nasal Congestion Sucralfate (Carafate) 1 gm PO BID [facility] Last Admin: 02/10/18 08:01 Dose: 1 gm Temazepam (Restoril) 15 mg PO QPM PRN PRN Reason: Insomnia Albuterol Sulfate [Proair Hfa] 2 puffs INH Q4H PRN 03/02/16 Dicyclomine HCl 10 mg PO QID 03/02/16 Levothyroxine Sodium [Levoxyl] 125 mcg PO QDAC 03/02/16 Pantoprazole Sodium 40 mg PO DAILY 03/02/16 Linaclotide [Linzess] 290 mcg ORAL DAILY 03/30/17 Ondansetron HCl [Zofran] 4 mg ORAL TID PRN 03/30/17 Oxybutynin Chloride [Ditropan Xl] 15 mg ORAL DAILY 03/30/17 Nortriptyline [Pamelor] 20 mg PO QPM 10/11/17 Tiotropium [place] [Spiriva] 2 puffs INH DAILY 10/11/17 Atorvastatin Calcium 10 mg PO DAILY 02/10/18 Candesartan Cilexetil [Candesartan Cilexetil] 16 mg PO DAILY 02/10/18 Duloxetine HCl [Duloxetine HCl] 30 mg PO DAILY 02/10/18 Eletriptan HBr [Eletriptan HBr] 40 mg PO PRN PRN MDD 80MG/DAY 02/10/18 HYDROcodone/ACET 10/325 [[place] 10 mg/325 mg] 0.5 - 1 tab PO Q6H PRN 02/10/18 Scopolamine [Scopolamine] 1 patch TOP Q3D 02/10/18 Objective - Vital Signs/Intake & Output Reviewed Vital Signs: Yes Vital Signs: Vital Signs x48h Temp Pulse Pulse Resp BP Pulse Ox 02/10/18 16:00 36.7 C 100 16 136/86 H 93 02/10/18 14:04 94 20 Intake & Output: Intake & Output 02/07/18 02/08/18 02/09/18 02/10/18 23:59 23:59 23:59 23:59 Intake Total 966.557 693.333 Balance 966.665 693.333 - Objective General Appearance: positive: Alert, Moderate distress, Anxious Eyes Bilateral: positive: Normal inspection, PERRL ENT: positive: ENT inspection nml, Pharynx nml, Pharyngeal erythema, Dry mucous membranes Neck: positive: Nml inspection, Thyroid nml, No JVD, Trachea midline, Lymphadenopathy (R), Lymphadenopathy (L), Stiff neck Respiratory: positive: Chest non-tender, Wheezes, Rhonchi Cardiovascular: positive: Regular rate & rhythm, No gallop, Tachycardia Peripheral Pulses: 2+ Radial (R), 2+ Radial (L) Abdomen: positive: Non-tender, Nml bowel sounds, Other (rounded, soft) Back: positive: Nml inspection Skin: positive: No rash, Warm, Dry Extremities: positive: Non-tender, Full ROM, Nml appearance, No pedal edema Neurologic/Psychiatric: positive: Oriented x3, CN's nml (2-12), Motor nml, Sensation nml, Depressed mood/affect (anxiety disorder, tearful during exam due to response to acute illness.) Reflexes: Bicep (R): 3+, Bicep (L): 3+, Ankle (R): 3+, Ankle (L): 3+ - Lab Results Fish Bones: 02/09/18 21:25 02/09/18 21:25 - Diagnostic Imaging Diagnostic Imaging Results: positive: Final report reviewed Diagnostic Imaging Comments: EXAM: CHEST RADIOGRAPHY EXAM DATE: 02/09/2018 09:23 PM. CLINICAL HISTORY: Dyspnea. History of COPD. COMPARISON: 04/18/2017. TECHNIQUE: 1 view. FINDINGS: Lungs/Pleura: No focal consolidation or evidence of edema. No pleural effusion or pneumothorax. Mediastinum: Normal cardiomediastinal contour. Other: The bones are unremarkable. IMPRESSION: Normal single view chest. ABX Reporting Has patient been on IV antibiotics over the past 48 hours?: Yes Assessment/Plan - Problem List (1) COPD exacerbation Impression: The patient admits to long standing tobacco abuse, there by being a possible cause of her disease. She states that she also wears BiPaP for sleep, uses her scheduled inhalers and for the past few days has noticed an increased cough, so took Musinex. The patient states that she has 5 indoor cats, and she cleans the noelle boxes, so she was told to delegate this task upon discharge. A walking oxygen saturation test should be ordered upon discharge. Plan: Schedule respiratory therapy nebulizers due to her being tachycardic, incentive spirometry and continue home BiPAP. (2) Chronic sinusitis Impression: Upon exam, the patient's ears were noted to have copious amounts of fluid that was cream color behind bilateral tympanic membranes. The patient also uses a BiPAP and has chronic COPD, so she will likely always have this. She states that sometimes her ears feel full. Plan: Give Afrin spray for 3 days, and Flonase spray daily for life long therapy. NS nasal spray has also been prescribed. (3) Chronic pain Impression: The patient has known DJD, and per imaging review she has degenerative changes throughout the lumbar spine. She also suffers from Lupus that she claims makes her "whole body ache". She states that she is managed by her PCP for her chronic pain. Plan: Continue home medications, Cymbalta, and gentle narcotics. Qualifiers: Chronic pain type: chronic pain syndrome Qualified Code(s): G89.4 - Chronic pain syndrome (4) Anxiety disorder Impression: This disorder is apparent during her exam and easily becomes tearful and/or bothered when speaking of her acute illness or daily struggles with chronic back pain due to DJD of the spine and Lupus. Plan: Continue Nortriptyline, monitor mental well being. Frequent nursing cares. (5) Hypoxemia Impression: The patient presented with a cough and was noted to be at only 87% on room air. She was just about to start with pulmonary rehab before this admission. She states that she has not been in the hospital because of her COPD for quite some time. Plan: Continue to monitor, administer supplemental oxygen to keep O2 greater than 90%, or if coughing. Treat acute illness. (6) Acute bronchitis Impression: The patient describes "green sputum" that began ~5 days prior to admission, cold -like symptoms, and progressively worse activity intolerance. Plan: Treat sinusitis symptoms, continue antibiotics, IV steroids, nebs, home BiPAP devise and incentive spirometry. (7) Tachycardia Impression: The patient is noted to have heart rates that stay in the 100-120's. She denies chest pain, or palpitations. This may be caused by the IV steroids, nebulizers or ongoing anxiety surrounding this admission. Plan: Telemetry, and echo is pending.
[2018-02-10] MEDS: LEVALBUTEROL 1.25 MG/3 ML NEB INH SCH (17:32)
[2018-02-10] MEDS: NORTRIPTYLINE 10 MG CAPSULE PO SCH (20:10)
[2018-02-10] MEDS: TEMAZEPAM 15 MG CAPSULE PO PRN (20:11)
[2018-02-10] MEDS ORDERED: LEVALBUTEROL 1.25 MG/3 ML NEB INH SCH (22:00)
[2018-02-10] MEDS ORDERED: IOPAMIDOL-300 100 ML VIAL ONE (23:20)
[2018-02-10] MEDS ORDERED: IOPAMIDOL-300 100 ML VIAL IVP ONE (23:39)
[2018-02-11] MEDS: SODIUM CHLORIDE FLUSH 0.9% 10 ML SYRINGE IVP SCH ×3 (00:01→15:46)
--- NOTE | 2018-02-11 02:17 | CT Report ---
EXAM: CT ANGIOGRAM CHEST EXAM DATE: 02/10/2018 11:44 PM. CLINICAL HISTORY: SOB, hypoxia, tachycardia. COMPARISON: 08/07/2016. TECHNIQUE: Routine helical imaging was performed through the chest in the pulmonary arterial phase. I V Contrast: 80ML ISOVUE 300. Reconstructions: Coronal 3-D MIP reconstructions.Sagittal and coronal. In accordance with CT protocol optimization, one or more of the following dose reduction techniques w ere utilized for this exam: automated exposure control, adjustment of mA and/or KV based on patient s ize, or use of iterative reconstructive technique. FINDINGS: Pulmonary Arteries: Diagnostic quality: Adequate through the segmental arteries. No evidence for acute or chronic pulmona ry emboli. RV/LV is within normal limits. There is no interventricular septal bowing. There is no reflux of cont rast material in the IVC. Lungs/Pleura: No consolidation, nodules, or edema. No effusions or pneumothorax. Mild dependent atele ctasis. Additional lingular opacities are noted. Cystic changes are present in both lungs consistent with COPD. Mediastinum: No enlargement or adenopathy. Small lymph nodes are present in the carol. Thoracic Aorta: Unremarkable. Upper Abdomen: Gallbladder is surgically absent. Other: No sign nodule or mass. No supraclavicular or axillary adenopathy. Normal subcutaneous soft ti ssues and chest wall. Previously noted fat-containing mass in the left posterior chest wall has been resected. No new residual mass. IMPRESSION: 1. Emphysema. Dependent atelectasis and lingular opacities. Findings probably represent atelectasis. Correlate for history of cough. 2. No pneumothorax or effusion. Normal pulmonary CT angiogram. No pulmonary emboli. 3. Coronary artery disease. No cardiac enlargement, adenopathy or pericardial effusion. [facility] Referring Provider Line: [phone] SITE ID: [id number]
[2018-02-11] MEDS: HYDROcod/ACETAM 5/325 MG TABLET PO PRN ×2 (05:30)
[2018-02-11 06:03] LABS: BASOPHILS % (AUTO) 0.2 %; HGB - HEMOGLOBIN 12.3 g/dL (12.0-16.0); LYMPHOCYTES # (AUTO) 1.5 10^3/uL (1.5-3.5); LYMPHOCYTES % (AUTO) 7.3 %; MEAN CORPUSCULAR HEMOGLOBIN 31.8 pg (27.0-31.0); MEAN CORPUSCULAR HGB CONC 32.1 g/dL (32.0-36.0); MEAN CORPUSCULAR VOLUME 98.8 fL (81.0-99.0); MEAN PLATELET VOLUME 8.1 fL (7.9-10.8); MONOCYTES # (AUTO) 0.7 10^3/uL (0.0-1.0); MONOCYTES % (AUTO) 3.6 %; NEUTROPHILS # (AUTO) 18.1 10^3/uL (1.5-6.6); NEUTROPHILS % (AUTO) 88.9 %; PLT - PLATELET COUNT 315 10^3/uL (130-450); RED BLOOD COUNT 3.88 10^6/uL (4.20-5.40); RED CELL DISTRIBUTION WIDTH 13.1 % (12.0-15.0); WHITE BLOOD COUNT 20.4 x10^3/uL (4.8-10.8)
[2018-02-11 06:19] LABS: ALBUMIN 3.8 g/dL (3.2-5.5); BILIRUBIN,TOTAL 0.5 mg/dL (0.2-1.0); CALCIUM 9.2 mg/dL (8.5-10.3); CREATININE 0.7 mg/dL (0.4-1.0); MAGNESIUM 2.4 mg/dL (1.7-2.8); TOTAL PROTEIN 7.5 g/dL (6.7-8.2)
[2018-02-11] MEDS: LEVOTHYROXINE 125 MCG TABLET PO SCH (06:19)
[2018-02-11] MEDS: PANTOPRAZOLE 40 MG TABLET PO SCH (06:19)
[2018-02-11] MEDS: methylPREDNISolone SUCCINATE 40 MG/ML VIAL IVP SCH ×3 (06:19→21:55)
[2018-02-11] MEDS: SODIUM CHLORIDE FLUSH 0.9% 10 ML SYRINGE IVP PRN ×5 (06:21→21:55)
[2018-02-11 06:34] LABS: PLATELET ESTIMATE, MANUAL NORMAL (130-450,000) (NORMAL); PLATELET MORPHOLOGY NORMAL APPEARANCE (NORMAL); RBC MORPHOLOGY (MULTIPLE) NORMAL APPEARANCE (NORMAL)
[2018-02-11] MEDS: FORMOTEROL FUMARATE NEB 20 MCG/2 ML INH SCH ×2 (07:45→22:20)
[2018-02-11] MEDS: BUDESONIDE 0.5 MG/2 ML NEB INH SCH ×2 (07:45→22:20)
[2018-02-11] MEDS: LEVALBUTEROL 1.25 MG/3 ML NEB INH SCH ×3 (07:45→22:20)
[2018-02-11] MEDS ORDERED: LEVOTHYROXINE 125 MCG TABLET PO SCH (08:24)
[2018-02-11] MEDS ORDERED: LEVOTHYROXINE 25 MCG TABLET PO SCH (08:26)
[2018-02-11] MEDS ORDERED: POTASSIUM CHLORIDE 20 MEQ TABLET PO ONE (08:27)
[2018-02-11] MEDS ORDERED: IPRATROPIUM 0.2 MG/ML NEB INH PRN (08:30)
[2018-02-11] MEDS: CETIRIZINE 10 MG TABLET PO SCH (08:54)
[2018-02-11] MEDS: FLUTICASONE NASAL SPRAY NAS SCH (08:54)
[2018-02-11] MEDS: OXYMETAZOLINE NASAL SPRAY NAS SCH ×2 (08:54→20:28)
[2018-02-11] MEDS: OXYBUTYNIN CHLORIDE 15 MG ORAL SCH (08:54)
[2018-02-11] MEDS: LOSARTAN 50 MG TABLET PO SCH (08:54)
[2018-02-11] MEDS: DULoxetine 30 MG CAPSULE PO SCH (08:55)
[2018-02-11] MEDS: cefTRIAXone 1 GM in SODIUM CHLORIDE 0.9% MINIBAG 100 ML IV SCH (08:55)
[2018-02-11] MEDS: ATORVASTATIN 10 MG TABLET PO SCH (08:55)
[2018-02-11] MEDS: SUCRALFATE 1 GM/10 ML UDC PO SCH ×2 (08:55→20:32)
[2018-02-11] MEDS: hydroCHLOROthiazide 12.5 MG CAPSULE PO SCH (08:55)
[2018-02-11] MEDS: ENOXAPARIN 40 MG/0.4 ML SYRINGE SUBQ SCH (08:55)
[2018-02-11] MEDS: POLYETHYLENE GLYCOL 3350 17 GM PACKET PO SCH (08:56)
[2018-02-11] MEDS ORDERED: PANTOPRAZOLE 40 MG TABLET PO SCH (09:00)
[2018-02-11] MEDS: guaiFENesin 600 MG TABLET PO SCH ×2 (09:07→20:26)
[2018-02-11] MEDS: MORPHINE 2 MG/ML SYRINGE IVP PRN ×2 (12:06→18:18)
--- NOTE | 2018-02-11 12:41 | PROVIDER PROGRESS NOTE ---
Subjective - Prog Note Date Prog Note Date: 02/11/18 - Subjective Pt reports feeling: Improved Subjective: pt report she feel her breathing is better. She denies chest pain, fever, chill. Current Medications - Current Medications Current Medications: Active Medications Acetaminophen (Tylenol) 650 mg PO Q4HR PRN PRN Reason: Pain 1 to 4 Atorvastatin Calcium (Lipitor) 10 mg PO DAILY [facility] Last Admin: 02/11/18 08:55 Dose: 10 mg Budesonide (Pulmicort) 0.5 mg INH RTBID [facility] Last Admin: 02/11/18 07:45 Dose: 0.5 mg Cetirizine HCl (Zyrtec) 10 mg PO DAILY [facility] Last Admin: 02/11/18 08:54 Dose: 10 mg Dicyclomine HCl (Bentyl) 10 mg PO QID PRN PRN Reason: Abdominal Pain Duloxetine HCl (Cymbalta) 30 mg PO DAILY [facility] Last Admin: 02/11/18 08:55 Dose: 30 mg Enoxaparin Sodium (Lovenox) 40 mg SUBQ DAILY [facility] Last Admin: 02/11/18 08:55 Dose: 40 mg Fluticasone Propionate (Flonase) 1 sprays PATRICIA DAILY [facility] Last Admin: 02/11/18 08:54 Dose: 1 spr Formoterol Fumarate (Perforomist) 20 mcg INH RTBID [facility] Last Admin: 02/11/18 07:45 Dose: 20 mcg Guaifenesin (Mucinex) 600 mg PO BID [facility] Last Admin: 02/11/18 09:07 Dose: 600 mg Hydrochlorothiazide (Hydrodiuril) 12.5 mg PO DAILY [facility] Last Admin: 02/11/18 08:55 Dose: 12.5 mg Ceftriaxone Sodium 1 gm/ (Sodium Chloride) 100 mls @ 200 mls/hr IV DAILY [facility] Last Infusion: 02/11/18 09:30 Dose: Infused Ipratropium [place] (Atrovent) 0.5 mg INH RTQ4H PRN PRN Reason: Shortness of Air/Wheezing Levalbuterol HCl (Xopenex) 1.25 mg INH Q4H PRN PRN Reason: Shortness of Air/Wheezing Levalbuterol HCl (Xopenex) 1.25 mg INH RTTID [facility] Last Admin: 02/11/18 07:45 Dose: 1.25 mg Levothyroxine Sodium (Synthroid) 50 mcg PO QDAC [facility] Losartan Potassium (Cozaar) 100 mg PO DAILY [facility] Last Admin: 02/11/18 08:54 Dose: 100 mg Methylprednisolone (Solu-Medrol (40mg Vial)) 40 mg IVP TID [facility] Morphine Sulfate (Morphine) 2 mg IVP Q2H PRN PRN Reason: PAIN Last Admin: 02/11/18 12:06 Dose: 2 mg Non-Formulary Medication (Oxybutynin Chloride [Ditropan Xl]) 15 mg ORAL DAILY [facility] Last Admin: 02/11/18 08:54 Dose: 15 mg Nortriptyline HCl (Pamelor) 20 mg PO QPM [facility] Last Admin: 02/10/18 20:10 Dose: 20 mg Ondansetron HCl (Zofran Inj) 4 mg IVP Q6HR PRN PRN Reason: Nausea / Vomiting Ondansetron HCl (Zofran Odt) 4 mg TL TID PRN PRN Reason: Nausea / Vomiting Oxymetazoline HCl (Afrin) 2 sprays PATRICIA BID [facility] Stop: 02/13/18 15:25 Last Admin: 02/11/18 08:54 Dose: 1 spr Pantoprazole Sodium (Protonix) 40 mg PO QDAC [facility] Last Admin: 02/11/18 06:19 Dose: 40 mg Polyethylene Glycol (Miralax) 17 gm PO DAILY [facility] Last Admin: 02/11/18 08:56 Dose: Not Given Prochlorperazine Edisylate (Compazine Inj) 10 mg IVP Q6HR PRN PRN Reason: Nausea / Vomiting Sodium Chloride (Normal Saline Flush 0.9%) 10 ml IVP PRN PRN PRN Reason: NEEDED PER PROVIDER ORDERS Last Admin: 02/11/18 12:06 Dose: 10 ml Sodium Chloride (Normal Saline Flush 0.9%) 10 ml IVP 0100,0900,1700 [facility] Last Admin: 02/11/18 08:55 Dose: 10 ml Sodium Chloride ([place]) 2 sprays PATRICIA Q4HR PRN PRN Reason: Nasal Congestion Sucralfate (Carafate) 1 gm PO BID [facility] Last Admin: 02/11/18 08:55 Dose: 1 gm Temazepam (Restoril) 15 mg PO QPM PRN PRN Reason: Insomnia Last Admin: 02/10/18 20:11 Dose: 15 mg Albuterol Sulfate [Proair Hfa] 2 puffs INH Q4H PRN 03/02/16 Dicyclomine HCl 10 mg PO QID 03/02/16 Levothyroxine Sodium [Levoxyl] 125 mcg PO QDAC 03/02/16 Pantoprazole Sodium 40 mg PO DAILY 03/02/16 Linaclotide [Linzess] 290 mcg ORAL DAILY 03/30/17 Ondansetron HCl [Zofran] 4 mg ORAL TID PRN 03/30/17 Oxybutynin Chloride [Ditropan Xl] 15 mg ORAL DAILY 03/30/17 Nortriptyline [Pamelor] 20 mg PO QPM 10/11/17 Tiotropium [place] [Spiriva] 2 puffs INH DAILY 10/11/17 Atorvastatin Calcium 10 mg PO DAILY 02/10/18 Candesartan Cilexetil [Candesartan Cilexetil] 16 mg PO DAILY 02/10/18 Duloxetine HCl [Duloxetine HCl] 30 mg PO DAILY 02/10/18 Eletriptan HBr [Eletriptan HBr] 40 mg PO PRN PRN MDD 80MG/DAY 02/10/18 HYDROcodone/ACET 10/325 [[place] 10 mg/325 mg] 0.5 - 1 tab PO Q6H PRN 02/10/18 Scopolamine [Scopolamine] 1 patch TOP Q3D 02/10/18 Objective - Vital Signs/Intake & Output Reviewed Vital Signs: Yes Vital Signs: Vital Signs x48h Temp Pulse Pulse Resp BP BP Pulse Ox 02/11/18 07:47 36.6 C 91 16 111/74 95 02/11/18 07:45 107 H 17 02/11/18 05:29 36.5 C 107 H 18 117/80 97 Intake & Output: Intake & Output 02/08/18 02/09/18 02/10/18 02/11/18 23:59 23:59 23:59 23:59 Intake Total 587.865 6154.333 440 Balance 258.412 1430.333 440 - Objective General Appearance: positive: No acute distress, Alert. negative: Lethargic Eyes Bilateral: positive: Normal inspection, PERRL, No lid inflammation, Conjunctivae nml ENT: positive: ENT inspection nml, Pharynx nml, No signs of dehydration. negative: Purulent nasal drainage, Pharyngeal erythema, Oral lesions Neck: positive: Nml inspection, Thyroid nml, No JVD, Trachea midline. negative : Thyromegaly, Lymphadenopathy (R), Lymphadenopathy (L), Stiff neck, Swelling/ bruising, Tracheal deviation Respiratory: positive: Chest non-tender, No respiratory distress, Other ( diminshed lung bilaterally). negative: Wheezes, Rales, Rhonchi Cardiovascular: positive: Regular rate & rhythm, No murmur, No gallop. negative : Irregularly irregular, Extrasystoles, Tachycardia, Bradycardia, Systolic murmur, Diastolic murmur Peripheral Pulses: 2+ Radial (R), 2+ Radial (L), 2+ Dorsalis pedis (R), 2+ Dorsalis pedis (L) Abdomen: positive: Non-tender, No organomegaly, Nml bowel sounds, No distention. negative: Tenderness, Guarding, Rebound Back: positive: Nml inspection. negative: CVA tenderness (R), CVA tenderness (L ) Skin: positive: Color nml, No rash, Warm, Dry. negative: Cyanosis, Diaphoresis , Pallor Extremities: positive: Non-tender, Full ROM, Nml appearance. negative: Calf tenderness, Joint swelling, Concha's sign/cords Neurologic/Psychiatric: positive: Oriented x3, Motor nml, Sensation nml. negative: Weakness, Sensory loss, Facial droop, Slurred/abnml speech, Depressed mood/affect - Lab Results Fish Bones: 02/11/18 05:31 02/11/18 05:31 Other Labs: Lab Results x24hrs 02/11/1818 1518 Range/Units 05:31 05:31 05:31 WBC 20.4 H (4.8-10.8) x10^3/uL RBC 3.88 L (4.20-5.40) 10^6/uL Hgb 12.3 (12.0-16.0) g/dL Hct 38.3 (37.0-47.0) % MCV 98.8 (81.0-99.0) fL MCH 31.8 H (27.0-31.0) pg MCHC 32.1 (32.0-36.0) g/dL RDW 13.1 (12.0-15.0) % Plt Count 315 (130-450) 10^3/uL MPV 8.1 (7.9-10.8) fL Neut # 18.1 H (1.5-6.6) 10^3/uL Lymph # 1.5 (1.5-3.5) 10^3/uL [place] # 0.7 (0.0-1.0) 10^3/uL Eos # 0.0 (0.0-0.7) 10^3/uL Baso # 0.0 (0.0-0.1) 10^3/uL Absolute Nucleated RBC 0.01 x10^3/uL Nucleated RBC % 0.0 /100WBC Manual Slide Review Indicated Platelet Estimate NORMAL (130-450,000) (NORMAL) Platelet Morphology NORMAL APPEARANCE (NORMAL) RBC Morph Micro Appear NORMAL APPEARANCE (NORMAL) Sodium 139 (135-145) mmol/L Potassium 3.2 L (3.5-5.0) mmol/L Chloride 102 (101-111) mmol/L Carbon Dioxide 26 (21-32) mmol/L Anion Gap 11.0 (6-13) BUN 16 (6-20) mg/dL Creatinine 0.7 (0.4-1.0) mg/dL Estimated GFR (MDRD) 87 L (>89) Glucose 142 H (70-100) mg/dL Calcium 9.2 (8.5-10.3) mg/dL Magnesium 2.4 (1.7-2.8) mg/dL Total Bilirubin 0.5 (0.2-1.0) mg/dL AST 34 (10-42) IU/L ALT 28 (10-60) IU/L Alkaline Phosphatase 109 (42-121) IU/L Total Protein 7.5 (6.7-8.2) g/dL Albumin 3.8 (3.2-5.5) g/dL Globulin 3.7 (2.1-4.2) g/dL Albumin/Globulin Ratio 1.0 (1.0-2.2) TSH < 0.08 L (0.34-5.60) uIU/mL ABX Reporting Has patient been on IV antibiotics over the past 48 hours?: Yes Assessment/Plan - Problem List (1) COPD exacerbation Impression: Impression: pt feel breathing is better, 95% sats or room air, cough is better controlled as well continue INH breathing treatment continue solu-metrol, down to 40 mg Tid The patient admits to long standing tobacco abuse, there by being a possible cause of her disease. She states that she also wears BiPaP for sleep, uses her scheduled inhalers and for the past few days has noticed an increased cough, so took Musinex. The patient states that she has 5 indoor cats, and she cleans the noelle boxes, so she was told to delegate this task upon discharge. A walking oxygen saturation test should be ordered upon discharge. Plan: Schedule respiratory therapy nebulizers due to her being tachycardic, incentive spirometry and continue home BiPAP. (2) Chronic sinusitis Impression: better, continue Afrin and Flonase, Upon exam, the patient's ears were noted to have copious amounts of fluid that was cream color behind bilateral tympanic membranes. The patient also uses a BiPAP and has chronic COPD, so she will likely always have this. She states that sometimes her ears feel full. Plan: Give Afrin spray for 3 days, and Flonase spray daily for life long therapy. NS nasal spray has also been prescribed. (3) Chronic pain Impression: denies new complaints The patient has known DJD, and per imaging review she has degenerative changes throughout the lumbar spine. She also suffers from Lupus that she claims makes her "whole body ache". She states that she is managed by her PCP for her chronic pain. Plan: Continue home medications, Cymbalta, and gentle narcotics. (4) Anxiety disorder Impression: This disorder is apparent during her exam and easily becomes tearful and/or bothered when speaking of her acute illness or daily struggles with chronic back pain due to DJD of the spine and Lupus. Plan: Continue Nortriptyline, monitor mental well being. Frequent nursing cares. (5) Hypoxemia Impression: it improved, not 95% Sats at room air continue breathing treatment, PRN O2 NC The patient presented with a cough and was noted to be at only 87% on room air. She was just about to start with pulmonary rehab before this admission. She states that she has not been in the hospital because of her COPD for quite some time. Plan: Continue to monitor, administer supplemental oxygen to keep O2 greater than 90%, or if coughing. Treat acute illness. (6) Acute bronchitis Impression: continue Rocephin, follow up sputum culture The patient describes "green sputum" that began ~5 days prior to admission, cold -like symptoms, and progressively worse activity intolerance. Plan: Treat sinusitis symptoms, continue antibiotics, IV steroids, nebs, home BiPAP devise and incentive spirometry. (7) Tachycardia Impression: HR Is better controlled at 91 pt's TSH is <0.08. Cut the Levothyoxine to 50 mcg from 125 mcg, will check T3/T4 continue tele, vital monitor The patient is noted to have heart rates that stay in the 100-120's. She denies chest pain, or palpitations. This may be caused by the IV steroids, nebulizers or ongoing anxiety surrounding this admission. Plan: Telemetry, and echo is pending. (8) hypothyroidism TSH is <0.08. Reduce Levothyroxine from 125 mcg to 50 mcg check T3/4 refer to PCP, continued to be managed.
[2018-02-11] MEDS: ACETAMINOPHEN 325 MG TABLET PO PRN ×2 (13:27→18:19)
[2018-02-11] MEDS ORDERED: ELETRIPTAN HBR 40 MG PO PRN (18:34)
[2018-02-11] MEDS: NORTRIPTYLINE 10 MG CAPSULE PO SCH (20:26)
[2018-02-11] MEDS: TEMAZEPAM 15 MG CAPSULE PO PRN (21:55)
[2018-02-12] MEDS: SENNA 8.6 MG TABLET PO SCH ×2 (01:34→09:49)
[2018-02-12] MEDS: DOCUSATE SODIUM 250 MG CAPSULE PO SCH ×2 (01:35→09:46)
[2018-02-12 05:48] LABS: BASOPHILS % (AUTO) 0.1 %; HGB - HEMOGLOBIN 12.7 g/dL (12.0-16.0); LYMPHOCYTES # (AUTO) 1.3 10^3/uL (1.5-3.5); LYMPHOCYTES % (AUTO) 8.9 %; MEAN CORPUSCULAR HGB CONC 32.4 g/dL (32.0-36.0); MEAN CORPUSCULAR VOLUME 98.9 fL (81.0-99.0); MONOCYTES # (AUTO) 0.6 10^3/uL (0.0-1.0); MONOCYTES % (AUTO) 4.3 %; NEUTROPHILS % (AUTO) 86.7 %; PLT - PLATELET COUNT 280 10^3/uL (130-450); RED BLOOD COUNT 3.96 10^6/uL (4.20-5.40); RED CELL DISTRIBUTION WIDTH 13.1 % (12.0-15.0)
[2018-02-12 06:03] LABS: ALBUMIN 3.6 g/dL (3.2-5.5); BILIRUBIN,TOTAL 0.5 mg/dL (0.2-1.0); CALCIUM 9.3 mg/dL (8.5-10.3); CREATININE 0.7 mg/dL (0.4-1.0); MAGNESIUM 2.4 mg/dL (1.7-2.8); TOTAL PROTEIN 7.2 g/dL (6.7-8.2)
[2018-02-12] MEDS: PANTOPRAZOLE 40 MG TABLET PO SCH (06:22)
[2018-02-12] MEDS: SODIUM CHLORIDE FLUSH 0.9% 10 ML SYRINGE IVP SCH ×2 (06:22→09:55)
[2018-02-12] MEDS: methylPREDNISolone SUCCINATE 40 MG/ML VIAL IVP SCH (06:22)
[2018-02-12] MEDS: MORPHINE 2 MG/ML SYRINGE IVP PRN ×2 (06:34→11:05)
[2018-02-12] MEDS: SODIUM CHLORIDE FLUSH 0.9% 10 ML SYRINGE IVP PRN (06:34)
[2018-02-12] MEDS: FORMOTEROL FUMARATE NEB 20 MCG/2 ML INH SCH (07:49)
[2018-02-12] MEDS: BUDESONIDE 0.5 MG/2 ML NEB INH SCH (07:50)
[2018-02-12] MEDS: LEVALBUTEROL 1.25 MG/3 ML NEB INH SCH (07:50)
[2018-02-12 08:10] VITALS: BP 112/79
[2018-02-12] MEDS: cefTRIAXone 1 GM in SODIUM CHLORIDE 0.9% MINIBAG 100 ML IV SCH (09:43)
[2018-02-12] MEDS: ENOXAPARIN 40 MG/0.4 ML SYRINGE SUBQ SCH (09:44)
[2018-02-12] MEDS: SUCRALFATE 1 GM/10 ML UDC PO SCH (09:45)
[2018-02-12] MEDS: POLYETHYLENE GLYCOL 3350 17 GM PACKET PO SCH (09:45)
[2018-02-12] MEDS: hydroCHLOROthiazide 12.5 MG CAPSULE PO SCH (09:47)
[2018-02-12] MEDS: LOSARTAN 50 MG TABLET PO SCH (09:48)
[2018-02-12] MEDS: DULoxetine 30 MG CAPSULE PO SCH (09:49)
[2018-02-12] MEDS: ATORVASTATIN 10 MG TABLET PO SCH (09:50)
[2018-02-12] MEDS: guaiFENesin 600 MG TABLET PO SCH (09:50)
[2018-02-12] MEDS: FLUTICASONE NASAL SPRAY NAS SCH (09:50)
[2018-02-12] MEDS: OXYMETAZOLINE NASAL SPRAY NAS SCH (10:12)
[2018-02-12] MEDS: OXYBUTYNIN CHLORIDE 15 MG ORAL SCH (10:16)
[2018-02-12] MEDS: CETIRIZINE 10 MG TABLET PO SCH (10:16)
--- NOTE | 2018-02-12 10:32 | Discharge Plan ---
Discharge Plan Disposition: Home, Self Care Condition: Poor Prescriptions: Levothyroxine [Synthroid] 50 mcg PO QDAC #10 tablet predniSONE [Deltasone] 20 mg PO [id number] #21 tab Diet: Regular Activity Restrictions: Activity as Tolerated Shower Restrictions: No (caregiver closely monitor, fall precaution) Weight Bearing: Full Weight Instruction Topics: ED Hypothyroidism, Prednisone tablets, COPD Additional Instructions or Follow Up instructions: You may follow up your PCP in one week, may follow up your ecologist technician as schedule. Your test TSH reveals you took Levothyroxine more than your need, your Levothyroxine is reduced to 50 mcg daily, you may follow up your PCP continue to be monitored. Should your symptoms return or worsen, you may present ER or call 911 for help. Follow-Up Care: [facility] - Pulmonary No Smoking: If you smoke, Please STOP! Call for help. Follow-up with: Alexandra Montana PA-C [Primary Care Provider] -
--- NOTE | 2018-02-12 10:57 | DISCHARGE SUMMARY ---
Discharge Summary Discharge Date: 02/12/18 Discharging Provider: HENRIQUEZ Primary Care Provider: Dr. [place] Condition at Discharge: Poor Discharge Disposition: 01 Home, Self Care Discharge Facility Name: home - DIAGNOSES Admission Diagnoses: (1) COPD exacerbation (2) Chronic sinusitis (3) Chronic pain (4) Anxiety disorder (5) Hypoxemia (6) Acute bronchitis (7) Tachycardia Discharge Diagnoses with Status of Each Condition: (1) COPD exacerbation 96% sats on room air. Per RT desat and sats study, pt does not need Oxygen to d/ c to home. No cough, SOB. (2) Chronic sinusitis stable, continue to be managed by PCP (3) Chronic pain stable, continue to be managed by PCP (4) Anxiety disorder stable, continue to be managed by PCP (5) Hypoxemia resolved (6) Acute bronchitis resolved (7) Tachycardia resolved (8) hypothyroidism TSH is <0.08. Reduce Levothyroxine from 125 mcg to 50 mcg. continue to be managed by PCP. - HPI History of Present Illness: referred from Dr. Pelayo's HPI for pt - ALLERGIES Allergies/Adverse Reactions: Allergies Allergy/AdvReac Type Severity Reaction Status Date / Time zolpidem [From Ambien] Allergy Unknown Verified 02/09/18 18:56 - MEDICATIONS Home Medications: Ambulatory Orders Medication Instructions Recorded Confirmed Albuterol Sulfate [Proair Hfa 2 puffs INH Q4H PRN 03/02/16 02/10/18 Inhaler] Dicyclomine HCl 10 mg PO QID 03/02/16 02/10/18 Pantoprazole Sodium 40 mg PO DAILY 03/02/16 02/10/18 Linaclotide [Linzess] 290 mcg ORAL DAILY 03/30/17 02/10/18 Ondansetron HCl [Zofran] 4 mg ORAL TID PRN 03/30/17 02/10/18 Oxybutynin Chloride [Ditropan Xl] 15 mg ORAL DAILY 03/30/17 02/10/18 Cetirizine [ZyrTEC] 10 mg PO DAILY #30 tablet 10/11/17 02/10/18 Nortriptyline [Pamelor] 20 mg PO QPM 10/11/17 02/10/18 Tiotropium [place] [Spiriva] 2 puffs INH DAILY 10/11/17 02/10/18 Atorvastatin Calcium 10 mg PO DAILY 02/10/18 02/10/18 Candesartan Cilexetil 16 mg PO DAILY 02/10/18 02/10/18 Duloxetine HCl 30 mg PO DAILY 02/10/18 02/10/18 Eletriptan HBr 40 mg PO PRN PRN MDD 80MG/DAY 02/10/18 02/10/18 HYDROcodone/ACET 10/325 [[place] 10 0.5 - 1 tab PO Q6H PRN 02/10/18 02/10/18 mg/325 mg] Scopolamine 1 patch TOP Q3D 02/10/18 02/10/18 Levothyroxine [Synthroid] 50 mcg PO QDAC #10 tablet 02/12/18 predniSONE [Deltasone] 20 mg PO [id number] #21 tab 02/12/18 - PHYSICAL EXAM AT DISCHARGE General Appearance: positive: No acute distress, Alert. negative: Lethargic Eyes Bilateral: positive: Normal inspection, PERRL, No lid inflammation, Conjunctivae nml ENT: positive: ENT inspection nml, Pharynx nml, No signs of dehydration. negative: Purulent nasal drainage, Pharyngeal erythema, Oral lesions Neck: positive: Nml inspection, Thyroid nml, No JVD, Trachea midline. negative : Thyromegaly, Lymphadenopathy (R), Lymphadenopathy (L), Stiff neck, Swelling/ bruising, Tracheal deviation Respiratory: positive: Chest non-tender, No respiratory distress, Breath sounds nml. negative: Wheezes, Rales, Rhonchi Cardiovascular: positive: Regular rate & rhythm, No murmur, No gallop. negative : Irregularly irregular, Extrasystoles, Tachycardia, Bradycardia, Systolic murmur, Diastolic murmur Peripheral Pulses: positive: 2+ Abdomen: positive: Non-tender, No organomegaly, Nml bowel sounds, No distention. negative: Tenderness, Guarding, Rebound Back: positive: Nml inspection. negative: CVA tenderness (R), CVA tenderness (L ) Skin: positive: Color nml, No rash, Warm, Dry. negative: Cyanosis, Diaphoresis , Pallor Extremities: positive: Non-tender, Full ROM, Nml appearance. negative: Calf tenderness, Joint swelling, Concha's sign/cords Neurologic/Psychiatric: positive: Oriented x3, Motor nml, Sensation nml, Mood/ affect nml, Sensory loss. negative: Weakness, Facial droop, Slurred/abnml speech, Depressed mood/affect - LABS Result Diagrams: 02/12/18 05:21 02/12/18 05:21 - FOLLOW UP Follow Up: You may follow up your PCP in one week, may follow up your emergency service restorer as schedule. Your test TSH reveals you took Levothyroxine more than your need, your Levothyroxine is reduced to 50 mcg daily, you may follow up your PCP continue to be monitored. Should your symptoms return or worsen, you may present ER or call 911 for help. - TIME SPENT Time Spent in Discharge (Minutes): 50
[2018-02-12] MEDS ORDERED: predniSONE 20 MG TABLET PO SCH (11:00)
== END 2018-02-12 11:35 | disposition home or self-care (01) | DRG 190 ==
LOC: ED 18:49 → MS2 22:20
PROVIDERS: ADMIT Internal Medicine; ATTEND Nurse Practitioner Gerontology
DX: J44.1 Chronic obstructive pulmonary disease with (acute) exacerbation (principal); J96.01 Acute respiratory failure with hypoxia; I10 Essential (primary) hypertension; E78.00 Pure hypercholesterolemia, unspecified; G47.30 Sleep apnea, unspecified; E03.9 Hypothyroidism, unspecified; M32.9 Systemic lupus erythematosus, unspecified; K21.9 Gastro-esophageal reflux disease without esophagitis; Z86.010 Personal history of colon polyps; R32 Unspecified urinary incontinence; F32.9 Major depressive disorder, single episode, unspecified; F41.0 Panic disorder [episodic paroxysmal anxiety]; M79.7 Fibromyalgia; G89.29 Other chronic pain; M54.9 Dorsalgia, unspecified; J32.9 Chronic sinusitis, unspecified; F41.9 Anxiety disorder, unspecified; J20.9 Acute bronchitis, unspecified; J44.0 Chronic obstructive pulmonary disease with (acute) lower respiratory infection; R00.0 Tachycardia, unspecified; Z87.891 Personal history of nicotine dependence; G47.33 Obstructive sleep apnea (adult) (pediatric); M47.9 Spondylosis, unspecified; N32.81 Overactive bladder; Z82.49 Family history of ischemic heart disease and other diseases of the circulatory system
CPT/HCPCS: 36415; 71045; 71275; 80053; 83690; 83735; 84439; 84443; 84481; 84484; 85025; 93306; 94640; 96365; 96375; 99283; 99284

== ENCOUNTER 2018-02-25 14:41 | Emergency (ER) | payer MEDICAID, MEDICARE ==
--- NOTE | 2018-02-25 15:53 | ED Physician Documentation ---
PD HPI DYSPNEA - Stated complaint Stated Complaint: SOA - Chief complaint Chief Complaint: Resp - History obtained from History obtained from: Patient (3 days she has noted high HR cynthia on exertion, up to 150. Worse this AM, lasting mins at a time. Better with rest. Recent hospitlization for bronchitis/hypoxia. That was about 2 weeks ago that she got out and she said she was actually bedbound for a week after that.) - History of Present Illness Improved by: Other (increased use of albuterol MDI lately.) Review of Systems Constitutional: denies: Fever, Chills, Fatigue, Sweats Cardiac: denies: Chest pain / pressure, Pedal edema, Calf pain Respiratory: denies: Hemoptysis, Wheezing GI: denies: Abdominal Pain, Nausea, Vomiting, Bloody / black stool Musculoskeletal: denies: Neck pain, Back pain PD PAST MEDICAL HISTORY - Past Medical History Cardiovascular: Hypertension, High cholesterol Respiratory: Asthma, COPD, Emphysema, Sleep apnea Neuro: Migraines Endocrine/Autoimmune: HyPOthyroidism, Systemic lupus erythematosus, Other GI: GERD, Ulcers, Colon polyps : Incontinence HEENT: None Psych: Depression, Panic attacks Musculoskeletal: Fibromyalgia, Fatigue, Chronic back pain Derm: None - Past Surgical History General: Cholecystectomy, 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 HEENT: Tonsil/Adenoidectomy - Present Medications Home Medications: Ambulatory Orders Medication Instructions Recorded Confirmed Albuterol Sulfate [Proair Hfa 2 puffs INH Q4H PRN 03/02/16 02/10/18 Inhaler] Dicyclomine HCl 10 mg PO QID 03/02/16 02/10/18 Pantoprazole Sodium 40 mg PO DAILY 03/02/16 02/10/18 Linaclotide [Linzess] 290 mcg ORAL DAILY 03/30/17 02/10/18 Ondansetron HCl [Zofran] 4 mg ORAL TID PRN 03/30/17 02/10/18 Oxybutynin Chloride [Ditropan Xl] 15 mg ORAL DAILY 03/30/17 02/10/18 Cetirizine [ZyrTEC] 10 mg PO DAILY #30 tablet 10/11/17 02/10/18 Nortriptyline [Pamelor] 20 mg PO QPM 10/11/17 02/10/18 Tiotropium [place] [Spiriva] 2 puffs INH DAILY 10/11/17 02/10/18 Atorvastatin Calcium 10 mg PO DAILY 02/10/18 02/10/18 Candesartan Cilexetil 16 mg PO DAILY 02/10/18 02/10/18 Duloxetine HCl 30 mg PO DAILY 02/10/18 02/10/18 Eletriptan HBr 40 mg PO PRN PRN MDD 80MG/DAY 02/10/18 02/10/18 HYDROcodone/ACET 10/325 [[place] 10 0.5 - 1 tab PO Q6H PRN 02/10/18 02/10/18 mg/325 mg] Scopolamine 1 patch TOP Q3D 02/10/18 02/10/18 Levothyroxine [Synthroid] 50 mcg PO QDAC #10 tablet 02/12/18 predniSONE [Deltasone] 20 mg PO [id number] #21 tab 02/12/18 - Allergies Allergies/Adverse Reactions: Allergies Allergy/AdvReac Type Severity Reaction Status Date / Time zolpidem [From Ambien] Allergy Unknown Verified 02/09/18 18:56 - Social History Does the pt smoke?: No Smoking Status: Former smoker Does the pt drink ETOH?: No Does the pt have substance abuse?: Yes - Immunizations Immunizations are current?: Yes - POLST Patient has POLST: No PD ED PE NORMAL - Vitals Vital signs reviewed: Yes - General General: Alert and oriented X 3, No acute distress - HEENT HEENT: PERRL, EOMI - Neck Neck: Supple, no meningeal sign, No bony TTP - Cardiac Cardiac: RRR, No murmur - Respiratory Respiratory: Other (Nonlabored, rhonchorous throughout) - Abdomen Abdomen: Soft, Non tender - Extremities Extremities: No edema, No calf tenderness / cord - Neuro Neuro: Alert and oriented X 3, Normal speech - Psych Psych: Normal mood, Normal affect Results - Vitals Vitals: Vital Signs - 24 hr 02/25/18 02/25/18 02/25/18 14:48 16:21 16:22 Temperature 36.2 C L Heart Rate 114 H Heart Rate [ 80 Sitting] Heart Rate [ 92 Standing] Heart Rate [ 81 Supine] Respiratory 22 Rate Blood Pressure 128/102 H Blood Pressure 116/82 H [Sitting] Blood Pressure 105/81 H [Standing] Blood Pressure 108/86 H [Supine] O2 Saturation 98 Oxygen O2 Source Room air - EKG (time done) 1500 Rate: Rate (enter#) (93) Rhythm: NSR [place]: Normal Intervals: Normal [place] QRS: Normal Ischemia: Normal ST segments Computer interpretation: Agree with computer - Labs Labs: Laboratory Tests 02/25/18 02/25/18 02/25/18 16:15 16:15 16:15 WBC 7.7 RBC 3.95 L Hgb 13.0 Hct 38.1 MCV 96.4 MCH 33.0 H MCHC 34.2 RDW 13.0 Plt Count 207 MPV 7.9 Neut # 4.6 Lymph # 2.0 [place] # 0.6 Eos # 0.4 Baso # 0.1 Absolute Nucleated RBC 0.00 Nucleated RBC % 0.0 Sodium 137 Potassium 4.1 Chloride 105 Carbon Dioxide 26 Anion Gap 6.0 BUN 10 Creatinine 0.7 Estimated GFR (MDRD) 87 L Glucose 104 H Calcium 8.8 Total Bilirubin 0.5 AST 31 ALT 42 Alkaline Phosphatase 120 Troponin I < 0.04 Total Protein 7.1 Albumin 3.9 Globulin 3.2 Albumin/Globulin Ratio 1.2 Lipase 15 L - Rads (name of study) CT PA Radiology: EMP read contemporaneously (Cystic lung disease without PE) PD MEDICAL DECISION MAKING - ED course ED course: 57-year-old woman presents with episodic tachycardia which is exertional at home. Given recent hospitalization and immobilization the differential diagnosis is most likely to include pulmonary embolism or deconditioning. She does not feel like she is dehydrated but we will check orthostatic vital signs. Also anemia is a concern and that will be checked. Departure - Departure Disposition: 01 Home, Self Care Clinical Impression: Tachycardia, Dyspnea Condition: Good Record reviewed to determine appropriate education?: Yes Comments: Call your doctor to arrange a follow-up appointment, make the next available appointment. In the interim, return anytime if worse or if new symptoms develop.
[2018-02-25] MEDS ORDERED: IOPAMIDOL-300 100 ML VIAL ONE (16:11)
[2018-02-25 16:23] LABS: BASOPHILS # (AUTO) 0.1 10^3/uL (0.0-0.1); BASOPHILS % (AUTO) 1.1 %; EOSINOPHILS # (AUTO) 0.4 10^3/uL (0.0-0.7); EOSINOPHILS % (AUTO) 5.6 %; LYMPHOCYTES % (AUTO) 25.7 %; MEAN CORPUSCULAR HGB CONC 34.2 g/dL (32.0-36.0); MEAN CORPUSCULAR VOLUME 96.4 fL (81.0-99.0); MEAN PLATELET VOLUME 7.9 fL (7.9-10.8); MONOCYTES # (AUTO) 0.6 10^3/uL (0.0-1.0); MONOCYTES % (AUTO) 7.9 %; NEUTROPHILS # (AUTO) 4.6 10^3/uL (1.5-6.6); NEUTROPHILS % (AUTO) 59.7 %; PLT - PLATELET COUNT 207 10^3/uL (130-450); RED BLOOD COUNT 3.95 10^6/uL (4.20-5.40); WHITE BLOOD COUNT 7.7 x10^3/uL (4.8-10.8)
[2018-02-25 16:33] LABS: ALBUMIN 3.9 g/dL (3.2-5.5); ALBUMIN/GLOBULIN RATIO 1.2 (1.0-2.2); BILIRUBIN,TOTAL 0.5 mg/dL (0.2-1.0); CALCIUM 8.8 mg/dL (8.5-10.3); CREATININE 0.7 mg/dL (0.4-1.0); TOTAL PROTEIN 7.1 g/dL (6.7-8.2)
[2018-02-25] MEDS ORDERED: IOPAMIDOL-300 100 ML VIAL IVP ONE (17:01)
--- NOTE | 2018-02-25 17:55 | CT Report ---
EXAM: CT ANGIOGRAM CHEST EXAM DATE: 02/25/2018 05:00 PM. CLINICAL HISTORY: Dyspnea. Recent history of respiratory failure. COMPARISON: 08/17/2016. TECHNIQUE: Routine helical imaging was performed through the chest in the pulmonary arterial phase. I V Contrast: 49 cc of Isovue-300. Reconstructions: Coronal 3-D MIP reconstructions.Sagittal and henry l. In accordance with CT protocol optimization, one or more of the following dose reduction techniques w ere utilized for this exam: automated exposure control, adjustment of mA and/or KV based on patient s ize, or use of iterative reconstructive technique. FINDINGS: Pulmonary Arteries: Diagnostic quality: Adequate through the segmental arteries. No evidence for acute or chronic pulmona ry emboli. RV/LV is within normal limits. There is no interventricular septal bowing. There is no reflux of cont rast material in the IVC. Lungs/Pleura: Diffuse cystic lung disease. No consolidation, nodules, or edema. No effusions or pneum othorax. Mediastinum: Normal. No cardiac enlargement or adenopathy. Thoracic Aorta: Unremarkable. Upper Abdomen: Unremarkable. Other: None. IMPRESSION: 1. No pulmonary emboli. 2. No aortic aneurysm. 3. Diffuse cystic lung disease. Possible etiologies include lymphangiomyomatosis, pulmonary [place] cell histiocytosis, and lymphoid interstitial pneumonia. [facility] Referring Provider Line: [phone] SITE ID: [id number]
[2018-02-25 18:44] VITALS: BP 123/76
== END 2018-02-25 18:58 | disposition home or self-care (01) ==
LOC: ED 14:41
DX: R00.0 Tachycardia, unspecified (principal); R06.00 Dyspnea, unspecified; J98.4 Other disorders of lung; J43.9 Emphysema, unspecified; I10 Essential (primary) hypertension; M32.9 Systemic lupus erythematosus, unspecified; Z87.891 Personal history of nicotine dependence
CPT/HCPCS: 36415; 71275; 80053; 83690; 84484; 85025; 93005; 99283; 99284; Q9967

== ENCOUNTER 2018-03-14 12:43 | Observation (INO) | payer MEDICARE ==
[2018-03-14] MEDS ORDERED: IPRATROPIUM/ALBUTEROL 3 ML NEB INH STA (13:13)
[2018-03-14] MEDS ORDERED: DEXAMETHASONE 10 MG/ML VIAL PO STA (13:18)
--- NOTE | 2018-03-14 13:20 | ED Physician Documentation ---
PD HPI DYSPNEA - Stated complaint Stated Complaint: LOW OXYGEN - Chief complaint Chief Complaint: Resp - History obtained from History obtained from: Patient - History of Present Illness Timing - duration: Weeks (2) Timing - details: Waxing and waning Similar symptoms before: Diagnosis (COPD) Recently seen: Admitted (One month ago.) - Additional information Additional information: The patient is a 57-year-old female with history of COPD, using BiPAP at night, who presents with dyspnea of about 2 weeks duration. She reports cough productive of a clear sputum. She denies fever or chest pain. She has been using albuterol nebulizer and Spiriva without relief. Review of her medical record reveals that she was hospitalized here 1 month ago with an acute exacerbation of COPD. She reportedly quit smoking cigarettes in 2015. Review of Systems Constitutional: denies: Fever Ears: denies: Tinnitus/ringing Nose: denies: Congestion Throat: denies: Sore throat Cardiac: denies: Chest pain / pressure, Palpitations Respiratory: reports: Dyspnea, Cough GI: denies: Abdominal Pain, Nausea, Vomiting : denies: Dysuria Skin: denies: Rash Musculoskeletal: denies: Back pain Neurologic: reports: Headache (occipital). 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 HEENT: Tonsil/Adenoidectomy - Present Medications Home Medications: Ambulatory Orders Medication Instructions Recorded Confirmed Albuterol Sulfate [Proair Hfa 2 puffs INH Q4H PRN 03/02/16 02/10/18 Inhaler] Dicyclomine HCl 10 mg PO QID 03/02/16 02/10/18 Pantoprazole Sodium 40 mg PO DAILY 03/02/16 02/10/18 Linaclotide [Linzess] 290 mcg ORAL DAILY 03/30/17 02/10/18 Ondansetron HCl [Zofran] 4 mg ORAL TID PRN 03/30/17 02/10/18 Oxybutynin Chloride [Ditropan Xl] 15 mg ORAL DAILY 03/30/17 02/10/18 Cetirizine [ZyrTEC] 10 mg PO DAILY #30 tablet 10/11/17 02/10/18 Nortriptyline [Pamelor] 20 mg PO QPM 10/11/17 02/10/18 Tiotropium [place] [Spiriva] 2 puffs INH DAILY 10/11/17 02/10/18 Atorvastatin Calcium 10 mg PO DAILY 02/10/18 02/10/18 Candesartan Cilexetil 16 mg PO DAILY 02/10/18 02/10/18 Duloxetine HCl 30 mg PO DAILY 02/10/18 02/10/18 Eletriptan HBr 40 mg PO PRN PRN MDD 80MG/DAY 02/10/18 02/10/18 HYDROcodone/ACET 10/325 [[place] 10 0.5 - 1 tab PO Q6H PRN 02/10/18 02/10/18 mg/325 mg] Scopolamine 1 patch TOP Q3D 02/10/18 02/10/18 Levothyroxine [Synthroid] 50 mcg PO QDAC #10 tablet 02/12/18 - Allergies Allergies/Adverse Reactions: Allergies Allergy/AdvReac Type Severity Reaction Status Date / Time zolpidem [From Ambien] Allergy Unknown Verified 03/14/18 13:06 - Social History Does the pt smoke?: No Smoking Status: Never smoker Does the pt drink ETOH?: No Does the pt have substance abuse?: Yes - Immunizations Immunizations are current?: Yes - POLST Patient has POLST: No PD ED PE NORMAL - Vitals Vital signs reviewed: Yes (Low pulse oximetry of 90% on room air.) - General General: Alert and oriented X 3, Well developed/nourished - HEENT HEENT: Atraumatic, Moist mucous membranes, Pharynx benign - Neck Neck: Supple, no meningeal sign, No adenopathy, No JVD - Cardiac Cardiac: RRR, No murmur - Respiratory Respiratory: Other (Diffuse expiratory wheezes bilaterally and coarse breath sounds. No rales.) - Abdomen Abdomen: Soft, Non tender - Back Back: No CVA TTP - Derm Derm: No rash - Extremities Extremities: No edema, No calf tenderness / cord - Neuro Neuro: Alert and oriented X 3, No motor deficit, Normal speech Results - Vitals Vitals: Vital Signs - 24 hr 03/14/18 03/14/18 03/14/18 13:03 13:30 14:48 Temperature 36.7 C 36.2 C L Heart Rate 98 97 83 Respiratory 18 20 20 Rate Blood Pressure 140/105 H 101/74 O2 Saturation 90 L 88 L 03/14/18 03/14/18 03/14/18 15:02 15:27 15:39 Temperature 36.1 C L Heart Rate 94 92 94 Respiratory 18 16 16 Rate Blood Pressure 96/75 101/69 O2 Saturation 87 L 91 L Oxygen O2 Source Nasal cannula - EKG (time done) 15:53 Rate: Rate (enter#) (92) Rhythm: NSR [place]: Normal Intervals: Prolonged QT QRS: Normal Ischemia: Normal ST segments Compare to prior EKG: Unchanged from prior EKG Computer interpretation: Agree with computer - Labs Labs: Laboratory Tests 03/14/18 03/14/18 13:06 13:06 WBC 10.9 H RBC 4.55 Hgb 14.9 Hct 44.6 MCV 98.2 MCH 32.8 H MCHC 33.4 RDW 13.4 Plt Count 346 MPV 8.0 Neut # (Auto) 6.2 Lymph # (Auto) 3.5 [place] # (Auto) 0.7 Eos # (Auto) 0.5 Baso # (Auto) 0.1 Absolute Nucleated RBC 0.00 Nucleated RBC % 0.0 Sodium 135 Potassium 3.7 Chloride 100 L Carbon Dioxide 26 Anion Gap 9.0 BUN 8 Creatinine 0.8 Estimated GFR (MDRD) 74 L Glucose 105 H Calcium 9.7 Total Bilirubin 0.5 AST 24 ALT 21 Alkaline Phosphatase 130 H Total Protein 8.9 H Albumin 4.4 Globulin 4.5 H Albumin/Globulin Ratio 1.0 Lipase 20 L - Rads (name of study) CXR Radiology: Prelim report reviewed, EMP read contemporaneously, See rad report ( No acute cardiopulmonary findings. Nonspecific interstitial air-fluid levels in the visualized upper abdomen. 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 Chest x-ray reveals no evidence of acute infiltrate or effusion. I doubt pneumonia or congestive heart failure. Treatment in the emergency department included administration of Xopenex nebulizer, dexamethasone 10 mg orally, and normal saline IV. The patient's dyspnea did not resolve, and her pulse oximetry continued to drop to 87% on room air. On 2 L supplemental oxygen her pulse oximetry improved to 93%. I discussed her condition with Dr. Cash, who accepts for further evaluation and treatment. - Sepsis Event Vital Signs: Vital Signs - 24 hr 03/14/18 03/14/18 03/14/18 13:03 13:30 14:48 Temperature 36.7 C 36.2 C L Heart Rate 98 97 83 Respiratory 18 20 20 Rate Blood Pressure 140/105 H 101/74 O2 Saturation 90 L 88 L 03/14/18 03/14/18 03/14/18 15:02 15:27 15:39 Temperature 36.1 C L Heart Rate 94 92 94 Respiratory 18 16 16 Rate Blood Pressure 96/75 101/69 O2 Saturation 87 L 91 L Oxygen O2 Source Nasal cannula Departure - Departure Disposition: ED Place in Observation Clinical Impression: Hypoxemia, COPD exacerbation Condition: Stable
[2018-03-14 13:36] LABS: ALBUMIN 4.4 g/dL (3.2-5.5); BILIRUBIN,TOTAL 0.5 mg/dL (0.2-1.0); CALCIUM 9.7 mg/dL (8.5-10.3); CREATININE 0.8 mg/dL (0.4-1.0); TOTAL PROTEIN 8.9 g/dL (6.7-8.2)
[2018-03-14 13:41] LABS: BASOPHILS # (AUTO) 0.1 10^3/uL (0.0-0.1); BASOPHILS % (AUTO) 1.3 %; EOSINOPHILS # (AUTO) 0.5 10^3/uL (0.0-0.7); EOSINOPHILS % (AUTO) 4.2 %; HGB - HEMOGLOBIN 14.9 g/dL (12.0-16.0); LYMPHOCYTES # (AUTO) 3.5 10^3/uL (1.5-3.5); LYMPHOCYTES % (AUTO) 31.9 %; MEAN CORPUSCULAR HEMOGLOBIN 32.8 pg (27.0-31.0); MEAN CORPUSCULAR HGB CONC 33.4 g/dL (32.0-36.0); MEAN CORPUSCULAR VOLUME 98.2 fL (81.0-99.0); MONOCYTES # (AUTO) 0.7 10^3/uL (0.0-1.0); NEUTROPHILS # (AUTO) 6.2 10^3/uL (1.5-6.6); NEUTROPHILS % (AUTO) 56.6 %; PLT - PLATELET COUNT 346 10^3/uL (130-450); RED BLOOD COUNT 4.55 10^6/uL (4.20-5.40); RED CELL DISTRIBUTION WIDTH 13.4 % (12.0-15.0); WHITE BLOOD COUNT 10.9 x10^3/uL (4.8-10.8)
--- NOTE | 2018-03-14 14:51 | XRAY Report ---
Procedure Date: 03/14/2018 Accession Number: [id number] / [id number] Procedure: XR - Chest 2 View X-Ray CPT Code: 47206 FULL RESULT: EXAM: CHEST RADIOGRAPHY EXAM DATE: 03/14/2018 01:27 PM. CLINICAL HISTORY: Dyspnea. COMPARISON: 02/09/2018. TECHNIQUE: 2 views. FINDINGS: Lungs/Pleura: Stable mild bibasilar atelectasis or scarring. No consolidation or basilar congestion. No pneumothorax or pleural effusion. Mediastinum: Heart and mediastinal contours are unremarkable. Other: Nonspecific intestinal air-fluid levels in the visualized upper abdomen. IMPRESSION: 1. No acute cardiopulmonary findings. 2. Nonspecific intestinal air-fluid levels in the visualized upper abdomen. Correlate clinically. [facility]
[2018-03-14] MEDS ORDERED: LEVALBUTEROL 1.25 MG/3 ML NEB INH STA (14:52)
[2018-03-14] MEDS ORDERED: SODIUM CHLORIDE 0.9% 1,000 ML IV ONE (15:33)
[2018-03-14] MEDS ORDERED: ACETAMINOPHEN 325 MG TABLET PO PRN (17:35)
[2018-03-14] MEDS ORDERED: methylPREDNISolone SUCCINATE 40 MG/ML VIAL IVP STA (17:40)
[2018-03-14] MEDS ORDERED: ALBUTEROL NEB 2.5 MG/3 ML INH PRN (17:41)
[2018-03-14] MEDS ORDERED: ELETRIPTAN HBR 40 MG PO PRN (17:43)
--- NOTE | 2018-03-14 17:48 | HISTORY & PHYSICAL EXAMINATION ---
Chief Complaint - Chief Complaint Chief Complaint: Shortness of breath History of Present Illness - Admitted From Admitted From:: ER - History Obtained From History obtained from: pt - History of Present Illness HPI Comment/Other: Ms. Irizarry is a 57-yrs-old female with a PMH significance of cigarette smoking which she quitted three years ago, COPD without oxygen-dependence at home, sleep apnea with BiPAP at home. She presented ER for complaint of shortness of breath. Pt report she has been shortness of breath, cough for more than one week. She had cough with clear white sputum. She denies fever, chill, chest pain pain. She presented 88/87 % Sats on room air at ER today. She is afebrile with HR at 83. CXR today reveals no acute cardiopulmonary findings,with nonspecific intestinal air-fluid levels. In the last month, pt had twice CTA of chest when pt present similar symptoms. There was no PE, but pt had emphysema and had diffuse cystic lung disease. Lab test is unremarkable except slight elevated WBC 10.9. pt is admitted in observation unit for COPD exacerbation. 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 She had four children. Living arrangement: At home Living Situation: With family Social History Notes: pt report she quitted cigarette smoking three years ago. No alcohol and drug issue. - Substance History Use: Uses substance without health or social issues: Tobacco Abuse: Recurrent use of substance despite neg consequences: NONE - POLST Patient has POLST: No POLST Status: Full Code Meds/Allgy - Home Medications Home Medications: Ambulatory Orders Medication Instructions Recorded Confirmed Albuterol Sulfate [Proair Hfa 2 puffs INH Q4H PRN 03/02/16 03/14/18 Inhaler] Dicyclomine HCl 10 mg PO QID 03/02/16 03/14/18 Pantoprazole Sodium 40 mg PO DAILY 03/02/16 03/14/18 Linaclotide [Linzess] 290 mcg ORAL DAILY 03/30/17 03/14/18 Ondansetron HCl [Zofran] 4 mg ORAL TID PRN 03/30/17 03/14/18 Oxybutynin Chloride [Ditropan Xl] 15 mg ORAL DAILY 03/30/17 03/14/18 Cetirizine [ZyrTEC] 10 mg PO DAILY #30 tablet 10/11/17 03/14/18 Nortriptyline [Pamelor] 20 mg PO QPM 10/11/17 03/14/18 Tiotropium [place] [Spiriva] 2 puffs INH DAILY 10/11/17 03/14/18 Atorvastatin Calcium 10 mg PO DAILY 02/10/18 03/14/18 Candesartan Cilexetil 16 mg PO DAILY 02/10/18 03/14/18 Duloxetine HCl 30 mg PO DAILY 02/10/18 03/14/18 Eletriptan HBr 40 mg PO PRN PRN MDD 80MG/DAY 02/10/18 03/14/18 HYDROcodone/ACET 10/325 [[place] 10 0.5 - 1 tab PO Q6H PRN 02/10/18 03/14/18 mg/325 mg] Levothyroxine [Synthroid] 50 mcg PO QDAC #10 tablet 02/12/18 03/14/18 raNITIdine HCl [Ranitidine HCl] 150 mg PO BID 03/14/18 03/14/18 - Allergies Allergies/Adverse Reactions: Allergies Allergy/AdvReac Type Severity Reaction Status Date / Time zolpidem [From Ambien] Allergy Unknown Verified 03/14/18 13:06 Review of Systems - Constitutional Constitutional: reports: Fatigue. denies: Fever, Chills, Malaise, Weakness, Poor appetite, Diaphoresis, Weight gain, Weight loss - Eyes Eyes: denies: Pain, Irritation, Amaurosis, Blurred vision, Spots in vision, Field loss, Vision loss, Dipolpia - Ears, Nose & Throat Ears, Nose & Throat: denies: Hearing loss, Hearing aids, Tinnitus, Vertigo, Nosebleeds, Nasal obstruction, Nasal congestion, Postnasal drainage, Dentures, Sore throat, Mouth lesions, Bleeding gums, Dental decay, Dental pain - Cardiovascular Cariovascular: denies: Irregular heart rate, Palpitations, Chest pain, Edema, Lightheadedness, Syncope, Exertional dyspnea, Decr. exercise tolerance - Respiratory Respiratory: reports: Cough, Sputum production, SOB with exertion. denies: Wheezing, Snoring, Hemoptysis, Orthopnea, SOB at rest, Apnea, Stridor, Pleuritic pain - Gastrointestinal Gastrointestinal: denies: Abdominal pain, Abdominal distention, Constipation, Diarrhea, Change in bowel habits, Rectal bleeding, Black stools, Bloody stools, Nausea, Vomiting, Bile emesis, Noah blood emesis, Coffee grounds emesis, Reflux /heartburn, Poor appetite - Genitourinary Genitourinary: denies: Dysuria, Frequency, Urgency, Hematuria, Incontinence, Flank pain, Nocturia, Urethral discharge - Musculoskeletal Musculoskeletal: denies: Muscle pain, Back pain, Muscle aches, Stiffness, Limited range of motion, Muscle weakness, Gout, Joint pain, Joint swelling - Integumentary Integumentary: denies: Rash, Pruritis, Lesions, Dryness, Lumps, Acne, Pigment changes, Nail changes - Neurological Neurological: denies: General weakness, Focal weakness, Headache, Dizziness, Numbness, Memory problems, Pre-existing deficit, Abnormal gait, Seizures, Incoordination, Slurred speech - Psychiatric Psychiatric: denies: Depression, Anxiety, Suicidal, Delusions, Hallucinations, Homicidal - Endocrine Endocrine: denies: Polyuria, Polydypsia, Polyphagia, Intolerance to cold - Hematologic/Lymphatic Hematologic/Lymphatic: denies: Anemia, Bruising, Petechiae, Blood clots, Lymphadenopathy, Bleeding tendencies, Recurrent infections Exam - Vital Signs Reviewed Vital Signs: Yes Vital Signs: Vital Signs x48h Temp Pulse Resp BP Pulse Ox 03/14/18 16:41 87 18 97/74 92 03/14/18 15:39 94 16 101/69 91 L 03/14/18 15:27 36.1 C L 92 16 96/75 87 L 03/14/18 15:02 94 18 06/15/18 14:48 36.2 C L 83 20 101/74 88 L 03/14/18 13:30 97 20 03/14/18 13:03 36.7 C 98 18 140/105 H 90 L - Physical Exam General Appearance: positive: No acute distress, Alert. negative: Lethargic Eyes Bilateral: positive: Normal inspection, PERRL, No lid inflammation, Conjunctivae nml ENT: positive: ENT inspection nml, Pharynx nml, No signs of dehydration. negative: Purulent nasal drainage, Pharyngeal erythema, Oral lesions Neck: positive: Nml inspection, Thyroid nml, No JVD, Trachea midline. negative : Thyromegaly, Lymphadenopathy (R), Lymphadenopathy (L), Stiff neck, Swelling/ bruising, Tracheal deviation Respiratory: positive: Chest non-tender, No respiratory distress, Wheezes. negative: Rales, Rhonchi Cardiovascular: positive: Regular rate & rhythm, No murmur, No gallop. negative : Irregularly irregular, Extrasystoles, Tachycardia, Bradycardia, JVD present, Systolic murmur, Diastolic murmur Peripheral Pulses: positive: 2+ Abdomen: positive: Non-tender, No organomegaly, Nml bowel sounds, No distention. negative: Tenderness, Guarding, Rebound Back: positive: Nml inspection. negative: CVA tenderness (R), CVA tenderness (L ) Skin: positive: Color nml, No rash, Warm, Dry. negative: Cyanosis, Diaphoresis , Pallor Extremities: positive: Non-tender, Full ROM, Nml appearance. negative: Calf tenderness, Joint swelling, Concha's sign/cords Neurologic/Psychiatric: positive: Oriented x3, Motor nml, Sensation nml, Mood/ affect nml. negative: Sensory loss, Facial droop, Slurred/abnml speech, Depressed mood/affect Conclusion/Plan - Problem List (1) COPD exacerbation Conclusion/Plan: recurrence, CXR and recent CTA indicates emphysema, and diffuse cystic lung disease Duoneb albuterol solu-metro O2 supplement as needed (2) HTN (hypertension) Conclusion/Plan: stable but slight at low side, hold home one BP meds, continue vital monitor (3) Hypothyroidism Conclusion/Plan: stable, check TSH (4) Sleep apnea Conclusion/Plan: continue home BiPAP vital monitor (5) Fibromyalgia Conclusion/Plan: pain control. (6) DVT prophylaxis Conclusion/Plan: SCD and lovenox (7) Full code status Conclusion/Plan: pt request full code - Lab Results Fish Bones: 03/15/18 04:20 03/15/18 04:20 Core Measures - Anticipated LOS I expect patient to be DC'd or transferred within 96 hours.: Yes - DVT/VTE - Prophylaxis VTE/DVT Device ordered at admit?: Yes VTE/DVT Prophylaxis med ordered at admit?: Yes
[2018-03-14] MEDS: HYDROcod/ACETAM 5/325 MG TABLET PO PRN (18:29)
[2018-03-14] MEDS: AZITHROMYCIN 250 MG TABLET PO SCH (18:29)
[2018-03-14] MEDS: methylPREDNISolone SUCCINATE 40 MG/ML VIAL IVP SCH ×2 (18:29→21:12)
[2018-03-14] MEDS: SODIUM CHLORIDE FLUSH 0.9% 10 ML SYRINGE IVP PRN ×3 (18:30→21:12)
[2018-03-14] MEDS: ONDANSETRON 4 MG/2 ML VIAL IVP PRN (19:31)
[2018-03-14] MEDS: IPRATROPIUM/ALBUTEROL 3 ML NEB INH PRN (19:55)
[2018-03-14] MEDS: DICYCLOMINE 10 MG CAPSULE PO SCH (20:29)
[2018-03-14] MEDS ORDERED: ATORVASTATIN 10 MG TABLET PO SCH (21:00)
[2018-03-14] MEDS ORDERED: NORTRIPTYLINE 10 MG CAPSULE PO SCH (21:00)
[2018-03-15] MEDS: SODIUM CHLORIDE FLUSH 0.9% 10 ML SYRINGE IVP SCH ×2 (01:06→08:44)
[2018-03-15 05:14] LABS: BASOPHILS # (AUTO) 0.1 10^3/uL (0.0-0.1); BASOPHILS % (AUTO) 0.8 %; HGB - HEMOGLOBIN 12.5 g/dL (12.0-16.0); LYMPHOCYTES # (AUTO) 1.4 10^3/uL (1.5-3.5); LYMPHOCYTES % (AUTO) 11.9 %; MEAN CORPUSCULAR HEMOGLOBIN 32.4 pg (27.0-31.0); MEAN CORPUSCULAR HGB CONC 32.7 g/dL (32.0-36.0); MEAN CORPUSCULAR VOLUME 99.2 fL (81.0-99.0); MEAN PLATELET VOLUME 7.6 fL (7.9-10.8); MONOCYTES # (AUTO) 0.1 10^3/uL (0.0-1.0); MONOCYTES % (AUTO) 1.1 %; NEUTROPHILS # (AUTO) 9.9 10^3/uL (1.5-6.6); NEUTROPHILS % (AUTO) 86.2 %; PLT - PLATELET COUNT 259 10^3/uL (130-450); RED BLOOD COUNT 3.87 10^6/uL (4.20-5.40); RED CELL DISTRIBUTION WIDTH 13.3 % (12.0-15.0); WHITE BLOOD COUNT 11.5 x10^3/uL (4.8-10.8)
[2018-03-15 05:29] LABS: ALBUMIN 3.2 g/dL (3.2-5.5); ALBUMIN/GLOBULIN RATIO 0.9 (1.0-2.2); BILIRUBIN,TOTAL 0.5 mg/dL (0.2-1.0); CALCIUM 8.9 mg/dL (8.5-10.3); CREATININE 0.7 mg/dL (0.4-1.0); MAGNESIUM 2.4 mg/dL (1.7-2.8); TOTAL PROTEIN 6.9 g/dL (6.7-8.2)
[2018-03-15] MEDS: methylPREDNISolone SUCCINATE 40 MG/ML VIAL IVP SCH ×2 (06:38→12:59)
[2018-03-15] MEDS: SODIUM CHLORIDE FLUSH 0.9% 10 ML SYRINGE IVP PRN ×3 (06:39→12:59)
[2018-03-15] MEDS: LEVOTHYROXINE 25 MCG TABLET PO SCH ×2 (06:39→10:59)
[2018-03-15 08:28] VITALS: BP 118/79
[2018-03-15] MEDS: DICYCLOMINE 10 MG CAPSULE PO SCH ×2 (08:42→12:59)
[2018-03-15] MEDS: AZITHROMYCIN 250 MG TABLET PO SCH (08:42)
[2018-03-15] MEDS ORDERED: POLYETHYLENE GLYCOL 3350 17 GM PACKET PO SCH (09:00)
[2018-03-15] MEDS ORDERED: ENOXAPARIN 40 MG/0.4 ML SYRINGE SUBQ SCH (09:00)
[2018-03-15] MEDS ORDERED: FAMOTIDINE 20 MG TABLET PO SCH (09:00)
[2018-03-15] MEDS ORDERED: CANDESARTAN CILEXETIL 16 MG PO SCH (09:00)
[2018-03-15] MEDS ORDERED: DULoxetine 30 MG CAPSULE PO SCH (09:00)
[2018-03-15] MEDS ORDERED: CETIRIZINE 10 MG TABLET PO SCH (09:00)
[2018-03-15] MEDS ORDERED: OXYBUTYNIN CHLORIDE 15 MG PO SCH (09:00)
[2018-03-15] MEDS: HYDROcod/ACETAM 5/325 MG TABLET PO PRN (09:28)
[2018-03-15] MEDS: ONDANSETRON 4 MG/2 ML VIAL IVP PRN (10:24)
[2018-03-15] MEDS: IPRATROPIUM/ALBUTEROL 3 ML NEB INH PRN (11:09)
--- NOTE | 2018-03-15 13:39 | Discharge Plan ---
Discharge Plan Disposition: Home, Self Care Condition: Poor Prescriptions: Ipratropium/Albuterol [Duoneb] 3 ml INH Q6H PRN #40 neb PRN Reason: Shortness Of Air/Wheezing Diet: Regular Activity Restrictions: Activity as Tolerated Shower Restrictions: No (fall precaution) Weight Bearing: Full Weight Instruction Topics: Albuterol Ipratropium solution for inhalation, COPD Additional Instructions or Follow Up instructions: You may follow up your PCP in one week, may follow up [employer] as out-pt, may follow up respiratory therapist's instruction for home oxygen usage. Should your symptoms return or worsen, you may present ER or call 911 for help. Follow-Up Care: [facility] - Pulmonary No Smoking: If you smoke, Please STOP! Call for help. Follow-up with: Alexandra Montana PA-C [Primary Care Provider] -
--- NOTE | 2018-03-15 13:46 | DISCHARGE SUMMARY ---
Discharge Summary Discharge Date: 03/15/18 Discharging Provider: HENRIQUEZ Primary Care Provider: Dr. Tammie Montana Condition at Discharge: Poor Discharge Disposition: 01 Home, Self Care Discharge Facility Name: home - DIAGNOSES Admission Diagnoses: (1) COPD exacerbation (2) HTN (hypertension) (3) Hypothyroidism (4) Sleep apnea (5) Fibromyalgia Discharge Diagnoses with Status of Each Condition: (1) COPD exacerbation pt state she feel much better today, breath is better. pt request to be d/c home today. pt is advised to follow up pulmonary rehab pt was hypoxic at rest, with room air O2 sats of 87%. at rest on 2 lpm nasal cannula, her O2 sats improved to 93%. with ambulation on 2 lpm, her O2 sats were 88%, and finally, on 3 lpm with ambulation, her O2 sat improved to 94%. I am ordering Home O2, 2 lpm at rest, and 3 lpm with exertion to treat her COPD and hypoxia. (2) HTN (hypertension) stable, continue PCP management (3) Hypothyroidism TSH normal, continue PCP management (4) Sleep apnea stable (5) Fibromyalgia stable - HPI History of Present Illness: Ms. Irizarry is a 57-yrs-old female with a PMH significance of cigarette smoking which she quitted three years ago, COPD without oxygen-dependence at home, sleep apnea with BiPAP at home. She presented ER for complaint of shortness of breath. Pt report she has been shortness of breath, cough for more than one week. She had cough with clear white sputum. She denies fever, chill, chest pain pain. She presented 88/87 % Sats on room air at ER today. She is afebrile with HR at 83. CXR today reveals no acute cardiopulmonary findings,with nonspecific intestinal air-fluid levels. In the last month, pt had twice CTA of chest when pt present similar symptoms. There was no PE, but pt had emphysema and had diffuse cystic lung disease. Lab test is unremarkable except slight elevated WBC 10.9. pt is admitted in observation unit for COPD exacerbation. - ALLERGIES Allergies/Adverse Reactions: Allergies Allergy/AdvReac Type Severity Reaction Status Date / Time zolpidem [From Ambien] Allergy Unknown Verified 03/14/18 13:06 - MEDICATIONS Home Medications: Ambulatory Orders Medication Instructions Recorded Confirmed Albuterol Sulfate [Proair Hfa 2 puffs INH Q4H PRN 03/02/16 03/14/18 Inhaler] Dicyclomine HCl 10 mg PO QID 03/02/16 03/14/18 Pantoprazole Sodium 40 mg PO DAILY 03/02/16 03/14/18 Linaclotide [Linzess] 290 mcg ORAL DAILY 03/30/17 03/14/18 Ondansetron HCl [Zofran] 4 mg ORAL TID PRN 03/30/17 03/14/18 Oxybutynin Chloride [Ditropan Xl] 15 mg ORAL DAILY 03/30/17 03/14/18 Cetirizine [ZyrTEC] 10 mg PO DAILY #30 tablet 10/11/17 03/14/18 Nortriptyline [Pamelor] 20 mg PO QPM 10/11/17 03/14/18 Tiotropium [place] [Spiriva] 2 puffs INH DAILY 10/11/17 03/14/18 Atorvastatin Calcium 10 mg PO DAILY 02/10/18 03/14/18 Candesartan Cilexetil 16 mg PO DAILY 02/10/18 03/14/18 Duloxetine HCl 30 mg PO DAILY 02/10/18 03/14/18 Eletriptan HBr 40 mg PO PRN PRN MDD 80MG/DAY 02/10/18 03/14/18 HYDROcodone/ACET 10/325 [[place] 10 0.5 - 1 tab PO Q6H PRN 02/10/18 03/14/18 mg/325 mg] Levothyroxine [Synthroid] 50 mcg PO QDAC #10 tablet 02/12/18 03/14/18 raNITIdine HCl [Ranitidine HCl] 150 mg PO BID 03/14/18 03/14/18 Ipratropium/Albuterol [Duoneb] 3 ml INH Q6H PRN #40 neb 03/15/18 predniSONE [Deltasone] 20 mg PO [id number] #21 tab 03/15/18 - PHYSICAL EXAM AT DISCHARGE General Appearance: positive: No acute distress, Alert. negative: Lethargic Eyes Bilateral: positive: Normal inspection, PERRL, No lid inflammation, Conjunctivae nml ENT: positive: ENT inspection nml, Pharynx nml, No signs of dehydration. negative: Purulent nasal drainage, Pharyngeal erythema, Oral lesions Neck: positive: Nml inspection, Thyroid nml, No JVD, Trachea midline. negative : Thyromegaly, Lymphadenopathy (R), Lymphadenopathy (L), Stiff neck, Swelling/ bruising, Tracheal deviation Respiratory: positive: Chest non-tender, No respiratory distress, Breath sounds nml. negative: Wheezes, Rales, Rhonchi Cardiovascular: positive: Regular rate & rhythm, No murmur, No gallop. negative : Irregularly irregular, Extrasystoles, Tachycardia, Bradycardia, JVD present, Systolic murmur, Diastolic murmur Peripheral Pulses: positive: 2+ Abdomen: positive: Non-tender, No organomegaly, Nml bowel sounds, No distention. negative: Tenderness Back: positive: Nml inspection. negative: CVA tenderness (R), CVA tenderness (L ) Skin: positive: Color nml, No rash, Warm, Dry. negative: Cyanosis, Diaphoresis , Pallor Extremities: positive: Non-tender, Full ROM, Nml appearance, Calf tenderness. negative: Joint swelling, Concha's sign/cords Neurologic/Psychiatric: positive: Oriented x3, Motor nml, Sensation nml, Mood/ affect nml. 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 Should your symptoms return or worsen, you may present ER or call 911 for help. - TIME SPENT Time Spent in Discharge (Minutes): 45
== END 2018-03-15 15:00 | disposition home or self-care (01) ==
LOC: ED 12:43 → MS2 17:35
PROVIDERS: ADMIT Nurse Practitioner Gerontology; ATTEND Nurse Practitioner Gerontology
DX: J44.1 Chronic obstructive pulmonary disease with (acute) exacerbation (principal); I10 Essential (primary) hypertension; E03.9 Hypothyroidism, unspecified; G47.30 Sleep apnea, unspecified; M79.7 Fibromyalgia; M32.9 Systemic lupus erythematosus, unspecified; K21.9 Gastro-esophageal reflux disease without esophagitis; E78.00 Pure hypercholesterolemia, unspecified; R32 Unspecified urinary incontinence; F32.9 Major depressive disorder, single episode, unspecified; F41.9 Anxiety disorder, unspecified; G89.29 Other chronic pain; M54.9 Dorsalgia, unspecified; Z79.51 Long term (current) use of inhaled steroids; Z79.899 Other long term (current) drug therapy; Z99.81 Dependence on supplemental oxygen; Z87.891 Personal history of nicotine dependence; Z79.891 Long term (current) use of opiate analgesic
CPT/HCPCS: 36415; 71046; 80053; 83690; 83735; 84443; 84484; 85025; 93005; 94640; 94761; 96361; 96372; 96374; 96375; 96376; 99284; A9270; G0378; J1650; 96360

== ENCOUNTER 2018-03-27 18:21 | Emergency (ER) | payer MEDICARE ==
[2018-03-27 18:40] VITALS: BP 116/71
== END 2018-03-27 19:45 | disposition left against medical advice (07) ==
LOC: ED 18:21
DX: Z53.21 Procedure and treatment not carried out due to patient leaving prior to being seen by health care provider (principal)

== ENCOUNTER 2018-03-30 22:07 | Outpatient (CLI) | payer MEDICARE | END 2018-03-30 22:08 | disposition critical access hospital (66) | LOC: EMS 22:07 | PROVIDERS: ATTEND Surgery | DX: R45.851 Suicidal ideations (principal); R52 Pain, unspecified | CPT/HCPCS: A0425; A0429 ==

== ENCOUNTER 2018-03-30 22:40 | Emergency (ER) | payer MEDICARE ==
[2018-03-31 00:05] LABS: ALBUMIN 3.7 g/dL (3.2-5.5); ALBUMIN/GLOBULIN RATIO 1.1 (1.0-2.2); ALKALINE PHOSPHATASE 90 IU/L (42-121); ALT ALANINE AMINOTRANSFERASE 18 IU/L (10-60); AST ASPARTATE AMINOTRANSFERASE 21 IU/L (10-42); BILIRUBIN,TOTAL 1.1 mg/dL (0.2-1.0); BUN - BLOOD UREA NITROGEN 20 mg/dL (6-20); CALCIUM 8.6 mg/dL (8.5-10.3); CARBON DIOXIDE - CO2 23 mmol/L (21-32); CHLORIDE 100 mmol/L (101-111); CREATININE 0.9 mg/dL (0.4-1.0); GFR - MDRD 65 (>89); GLUCOSE 113 mg/dL (70-100); LIPASE 16 U/L (22-51); SODIUM 133 mmol/L (135-145)
[2018-03-31 00:06] LABS: BASOPHILS # (AUTO) 0.1 10^3/uL (0.0-0.1); BASOPHILS % (AUTO) 0.8 %; EOSINOPHILS # (AUTO) 0.3 10^3/uL (0.0-0.7); EOSINOPHILS % (AUTO) 2.4 %; HGB - HEMOGLOBIN 12.9 g/dL (12.0-16.0); LYMPHOCYTES # (AUTO) 1.9 10^3/uL (1.5-3.5); MEAN CORPUSCULAR HEMOGLOBIN 33.1 pg (27.0-31.0); MEAN CORPUSCULAR HGB CONC 33.3 g/dL (32.0-36.0); MEAN CORPUSCULAR VOLUME 99.2 fL (81.0-99.0); MEAN PLATELET VOLUME 7.2 fL (7.9-10.8); MONOCYTES # (AUTO) 0.6 10^3/uL (0.0-1.0); MONOCYTES % (AUTO) 5.8 %; NEUTROPHILS # (AUTO) 7.8 10^3/uL (1.5-6.6); PLT - PLATELET COUNT 236 10^3/uL (130-450); RED CELL DISTRIBUTION WIDTH 14.1 % (12.0-15.0); WHITE BLOOD COUNT 10.7 x10^3/uL (4.8-10.8)
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
[2018-03-31] MEDS ORDERED: POTASSIUM BICARB 25 MEQ TABLET PO STA (01:23)
== END 2018-03-31 06:03 | disposition home or self-care (01) ==
LOC: ED 22:40
DX: F32.9 Major depressive disorder, single episode, unspecified (principal); I10 Essential (primary) hypertension
CPT/HCPCS: 36415; 80053; 83690; 85025; 99281; 99283; A9270; G0480; 80320

== ENCOUNTER 2018-04-22 08:00 | Outpatient (CLI) | payer MEDICARE ==
[2018-04-22 13:11] LABS: ALBUMIN 3.8 g/dL (3.2-5.5); ALBUMIN/GLOBULIN RATIO 1.1 (1.0-2.2); ALKALINE PHOSPHATASE 131 IU/L (42-121); ALT ALANINE AMINOTRANSFERASE 14 IU/L (10-60); AST ASPARTATE AMINOTRANSFERASE 23 IU/L (10-42); BILIRUBIN,TOTAL 0.4 mg/dL (0.2-1.0); BUN - BLOOD UREA NITROGEN 11 mg/dL (6-20); CALCIUM 8.7 mg/dL (8.5-10.3); CARBON DIOXIDE - CO2 25 mmol/L (21-32); CHLORIDE 103 mmol/L (101-111); CHOL/HDL RATIO 3.6 (<4.4); CHOLESTEROL 208 mg/dL; CREATININE 0.8 mg/dL (0.4-1.0); GFR - MDRD 74 (>89); GLUCOSE 96 mg/dL (70-100); HDL CHOLESTEROL 58 mg/dL; LDL CHOLESTEROL,CALCULATED 129 mg/dL; LDL/HDL RATIO 2.2 (<4.4); SODIUM 137 mmol/L (135-145); TOTAL PROTEIN 7.3 g/dL (6.7-8.2); VLDL CHOLESTEROL 21 mg/dL
== END 2018-04-22 08:01 | disposition home or self-care (01) ==
LOC: LAB.WCP 08:00
PROVIDERS: ATTEND Physician Assistant Medical
DX: E78.5 Hyperlipidemia, unspecified (principal)
CPT/HCPCS: 36415; 80053; 80061; 83721

== ENCOUNTER 2018-04-24 11:08 | Outpatient (CLI) | payer MEDICARE, MEDICAID | END 2018-04-24 11:09 | disposition home or self-care (01) | LOC: SC 11:08 | PROVIDERS: ATTEND Nurse Practitioner Family | DX: G47.31 Primary central sleep apnea (principal); G47.00 Insomnia, unspecified | CPT/HCPCS: 99214; G0463; 99212 ==

== ENCOUNTER 2018-06-25 10:52 | Outpatient (CLI) | payer MEDICARE, MEDICAID | END 2018-06-25 10:53 | disposition home or self-care (01) | LOC: SC 10:52 | PROVIDERS: ATTEND Nurse Practitioner Family | DX: G47.31 Primary central sleep apnea (principal); G47.00 Insomnia, unspecified | CPT/HCPCS: 99214; G0463; 99212 ==

== ENCOUNTER 2018-08-11 13:26 | Emergency (ER) | payer MEDICARE, MEDICAID ==
--- NOTE | 2018-08-11 14:20 | ED Physician Documentation ---
PD HPI HEADACHE - Stated complaint Stated Complaint: NAUSEA/HEADACHE - Chief complaint Chief Complaint: General - History obtained from History obtained from: Patient - History of Present Illness Timing - onset: How many weeks ago (She has felt ill for about a week. Started with general malaise and myalgias nausea and decreased intake. She had diarrhea as well. She is continued with decreased appetite, headache, chills and general malaise. She has had some cough with minimally productive sputum. She does have history of COPD and uses an inhalers and nebulizers at home. She has chronic pain and uses [place] 10 mg twice daily usually. She states this is not helping her headache this past week. She denies any neck stiffness or adenopathy.) Timing - onset during: Rest, Light activity Timing - duration: Weeks (1) Timing - details: Gradual onset, Still present, Waxing and waning Worst headache ever?: No: Worst headache ever? Location: Front, Global Quality: Throbbing, Aching Associated symptoms: Nausea, Weakness. No: Fever (but has chills), Stiff neck, Numbness, Syncope Worsened by: Light Contributing factors: Recent illness. No: Anticoagulated, Possible carbon monoxide, Trauma Recently seen: Not recently seen Review of Systems Constitutional: reports: Chills, Myalgias, Fatigue. denies: Fever Nose: reports: Congestion. denies: Rhinorrhea / runny nose Throat: denies: Sore throat Cardiac: denies: Chest pain / pressure, Palpitations Respiratory: reports: Dyspnea, Cough, Wheezing GI: reports: Nausea, Diarrhea. 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 HEENT: Tonsil/Adenoidectomy - Present Medications Home Medications: Ambulatory Orders Medication Instructions Recorded Confirmed Albuterol Sulfate [Proair Hfa 2 puffs INH Q4H PRN 03/02/03/30/18 Inhaler] Dicyclomine HCl 10 mg PO QID 03/02/16 03/30/18 Pantoprazole Sodium 40 mg PO DAILY 03/02/16 03/30/18 Linaclotide [Linzess] 290 mcg ORAL DAILY 03/30/17 03/30/18 Ondansetron HCl [Zofran] 4 mg ORAL TID PRN 03/30/17 03/30/18 Oxybutynin Chloride [Ditropan Xl] 15 mg ORAL DAILY 03/30/17 03/30/18 Cetirizine [ZyrTEC] 10 mg PO DAILY #30 tablet 10/11/17 03/30/18 Nortriptyline [Pamelor] 20 mg PO QPM 10/11/17 03/30/18 Tiotropium [place] [Spiriva] 2 puffs INH DAILY 10/11/17 03/30/18 Atorvastatin Calcium 10 mg PO DAILY 02/10/18 03/30/18 Candesartan Cilexetil 16 mg PO DAILY 02/10/18 03/30/18 Duloxetine HCl 30 mg PO DAILY 02/10/18 03/30/18 Eletriptan HBr 40 mg PO PRN PRN MDD 80MG/DAY 02/10/18 03/30/18 HYDROcodone/ACET 10/325 [[place] 10 0.5 - 1 tab PO Q6H PRN 02/10/18 03/30/18 mg/325 mg] Levothyroxine [Synthroid] 50 mcg PO QDAC #10 tablet 02/12/18 03/30/18 raNITIdine HCl [Ranitidine HCl] 150 mg PO BID 03/14/18 03/30/18 Ipratropium/Albuterol [Duoneb] 3 ml INH Q6H PRN #40 neb 03/15/18 03/30/18 predniSONE [Deltasone] 20 mg PO [id number] #21 tab 03/15/18 03/30/18 Dexamethasone [Decadron] 4 mg PO DAILY #5 tablet 08/11/18 Ondansetron Odt [Zofran] 4 mg TL Q6H PRN #15 tablet 08/11/18 Oxycodone HCl/Acetaminophen 1 - 2 each PO Q6H PRN #14 tablet 08/11/18 [Percocet 5-325 mg Tablet] - Allergies Allergies/Adverse Reactions: Allergies Allergy/AdvReac Type Severity Reaction Status Date / Time diazepam [From Valium] Allergy Unknown Verified 08/11/18 13:47 NSAIDS (Non-Steroidal Allergy Unknown Verified 08/11/18 13:47 Anti-Inflamma zolpidem [From Ambien] Allergy Unknown Verified 08/11/18 13:47 - Social History Does the pt smoke?: No Smoking Status: Never smoker Does the pt drink ETOH?: No Does the pt have substance abuse?: Yes - Immunizations Immunizations are current?: Yes - POLST Patient has POLST: No POLST Status: Full Code PD ED PE NORMAL - Vitals Vital signs reviewed: Yes - General General: Alert and oriented X 3, No acute distress, Well developed/nourished - HEENT HEENT: Atraumatic, Pharynx benign. No: Moist mucous membranes - Neck Neck: Supple, no meningeal sign, No adenopathy - Cardiac Cardiac: RRR, No murmur - Respiratory Respiratory: Clear bilaterally - Abdomen Abdomen: Soft, Non tender, Non distended - Back Back: No CVA TTP - Derm Derm: Normal color, Warm and dry - Extremities Extremities: No deformity, No tenderness to palpate, Normal ROM s pain, No edema, No calf tenderness / cord - Neuro Neuro: Alert and oriented X 3, No motor deficit, Normal speech Eye Opening: Spontaneous Motor: Obeys Commands Verbal: Oriented GCS Score: 15 Results - Vitals Vitals: Vital Signs - 24 hr 08/11/18 08/11/18 08/11/18 13:41 15:31 17:48 Temperature 36.1 C L Heart Rate 91 67 72 Respiratory 20 16 20 Rate Blood Pressure 94/68 108/66 O2 Saturation 96 93 Oxygen O2 Source Nasal cannula Oxygen Flow Rate 2 - EKG (time done) 14:58 Rate: Rate (enter#) (62) Rhythm: NSR [place]: Normal Intervals: Normal [place] QRS: Normal, Low voltage Ischemia: Normal ST segments. No: ST elevation c/w ischemia, ST depression - Labs Labs: Laboratory Tests 08/11/18 08/11/18 08/11/18 14:59 15:07 15:07 WBC 8.9 RBC 3.67 L Hgb 12.7 Hct 36.4 L MCV 99.1 H MCH 34.6 H MCHC 34.9 RDW 13.5 Plt Count 286 MPV 8.4 Neut # (Auto) 6.1 Lymph # (Auto) 1.8 [place] # (Auto) 0.6 Eos # (Auto) 0.3 Baso # (Auto) 0.1 Absolute Nucleated RBC 0.00 Nucleated RBC % 0.0 Sodium 132 L Potassium 3.0 L Chloride 97 L Carbon Dioxide 25 Anion Gap 10.0 BUN 10 Creatinine 1.2 H Estimated GFR (MDRD) 46 L Glucose 97 Lactic Acid Calcium 9.0 Magnesium 2.2 Total Bilirubin 0.6 AST 22 ALT 11 Alkaline Phosphatase 127 H B-Natriuretic Peptide Total Protein 8.0 Albumin 4.3 Globulin 3.7 Albumin/Globulin Ratio 1.2 Lipase 13 L TSH Urine Color Urine Clarity Urine pH Ur Specific [place] Urine Protein Urine Glucose (UA) Urine Ketones Urine Occult Blood Urine Nitrite Urine Bilirubin Urine Urobilinogen Ur Leukocyte Esterase Urine RBC Urine WBC Ur Squamous Epith Cells Urine Bacteria Urine Casts Ur Microscopic Review Urine Culture Comments Influenza A (Rapid) Negative Influenza B (Rapid) Negative 08/11/18 08/11/18 08/11/18 15:07 15:07 15:07 WBC RBC Hgb Hct MCV MCH MCHC RDW Plt Count MPV Neut # (Auto) Lymph # (Auto) [place] # (Auto) Eos # (Auto) Baso # (Auto) Absolute Nucleated RBC Nucleated RBC % Sodium Potassium Chloride Carbon Dioxide Anion Gap BUN Creatinine Estimated GFR (MDRD) Glucose Lactic Acid 1.2 Calcium Magnesium Total Bilirubin AST ALT Alkaline Phosphatase B-Natriuretic Peptide 49 Total Protein Albumin Globulin Albumin/Globulin Ratio Lipase TSH 75.46 H Urine Color Urine Clarity Urine pH Ur Specific [place] Urine Protein Urine Glucose (UA) Urine Ketones Urine Occult Blood Urine Nitrite Urine Bilirubin Urine Urobilinogen Ur Leukocyte Esterase Urine RBC Urine WBC Ur Squamous Epith Cells Urine Bacteria Urine Casts Ur Microscopic Review Urine Culture Comments Influenza A (Rapid) Influenza B (Rapid) 08/11/18 16:07 WBC RBC Hgb Hct MCV MCH MCHC RDW Plt Count MPV Neut # (Auto) Lymph # (Auto) [place] # (Auto) Eos # (Auto) Baso # (Auto) Absolute Nucleated RBC Nucleated RBC % Sodium Potassium Chloride Carbon Dioxide Anion Gap BUN Creatinine Estimated GFR (MDRD) Glucose Lactic Acid Calcium Magnesium Total Bilirubin AST ALT Alkaline Phosphatase B-Natriuretic Peptide Total Protein Albumin Globulin Albumin/Globulin Ratio Lipase TSH Urine Color YELLOW Urine Clarity CLEAR Urine pH 6.5 Ur Specific [place] 1.020 Urine Protein NEGATIVE Urine Glucose (UA) NEGATIVE Urine Ketones NEGATIVE Urine Occult Blood TRACE-LYSE Urine Nitrite NEGATIVE Urine Bilirubin NEGATIVE Urine Urobilinogen 0.2 (NORMAL) Ur Leukocyte Esterase TRACE H Urine RBC 0-5 Urine WBC 0-3 Ur Squamous Epith Cells FEW Squamous Urine Bacteria Rare Urine Casts 11-25 Hyaline Casts Ur Microscopic Review INDICATED Urine Culture Comments INDICATED Influenza A (Rapid) Influenza B (Rapid) - Rads (name of study) chest xray Radiology: Prelim report reviewed (normal) PD MEDICAL DECISION MAKING - ED course Complexity details: reviewed results, re-evaluated patient (feeling improved. Headache improved with IV fluids. No fever nor neck stiffness. Do not feel she is meningitic. We discussed LP and with her feeling better with fluids and such, shared decision to not do it. ), considered differential, d/w patient Departure - Departure Disposition: 01 Home, Self Care Clinical Impression: Viral illness, Dehydration, Nausea vomiting and diarrhea Condition: Stable Record reviewed to determine appropriate education?: Yes Instructions: ED Nausea Vomiting Follow-Up: Alexandra Montana PA-C [Primary Care Provider] - Prescriptions: Dexamethasone [Decadron] 4 mg PO DAILY #5 tablet Ondansetron Odt [Zofran] 4 mg TL Q6H PRN #15 tablet PRN Reason: Nausea / Vomiting Oxycodone HCl/Acetaminophen [Percocet 5-325 mg Tablet] 1 - 2 each PO Q6H PRN #14 tablet PRN Reason: pain Comments: Frequent fluids this evening and tomorrow to maintain hydration. Ondansetron if needed for nausea. Decadron daily for the next several days for inflammation. Continue usual medications. Add Percocet if needed for pain and headache. Recheck if not improving over the next few days and call your primary care for follow-up appointment later this week. Discharge Date/Time: 08/11/18 17:51
[2018-08-11] MEDS ORDERED: SODIUM CHLORIDE 0.9% 1,000 ML IV ONE ×2 (14:44→14:46)
[2018-08-11] MEDS ORDERED: HYDROmorphone 1 MG/ML CARPUJECT IVP STA (14:45)
[2018-08-11] MEDS ORDERED: IPRATROPIUM/ALBUTEROL 3 ML NEB INH STA (14:46)
[2018-08-11] MEDS ORDERED: METOCLOPRAMIDE 10 MG/2 ML VIAL IVP STA (14:46)
[2018-08-11] MEDS ORDERED: DEXAMETHASONE 10 MG/ML VIAL IVP STA (14:48)
[2018-08-11 15:16] LABS: BASOPHILS # (AUTO) 0.1 10^3/uL (0.0-0.1); EOSINOPHILS # (AUTO) 0.3 10^3/uL (0.0-0.7); EOSINOPHILS % (AUTO) 2.9 %; HGB - HEMOGLOBIN 12.7 g/dL (12.0-16.0); LYMPHOCYTES # (AUTO) 1.8 10^3/uL (1.5-3.5); LYMPHOCYTES % (AUTO) 20.6 %; MEAN CORPUSCULAR HEMOGLOBIN 34.6 pg (27.0-31.0); MEAN CORPUSCULAR HGB CONC 34.9 g/dL (32.0-36.0); MEAN CORPUSCULAR VOLUME 99.1 fL (81.0-99.0); MEAN PLATELET VOLUME 8.4 fL (7.9-10.8); MONOCYTES # (AUTO) 0.6 10^3/uL (0.0-1.0); MONOCYTES % (AUTO) 6.7 %; NEUTROPHILS # (AUTO) 6.1 10^3/uL (1.5-6.6); NEUTROPHILS % (AUTO) 68.8 %; PLT - PLATELET COUNT 286 10^3/uL (130-450); RED BLOOD COUNT 3.67 10^6/uL (4.20-5.40); RED CELL DISTRIBUTION WIDTH 13.5 % (12.0-15.0); WHITE BLOOD COUNT 8.9 x10^3/uL (4.8-10.8)
--- NOTE | 2018-08-11 15:29 | XRAY Report ---
Reason: cough and wheezing/ feels ill Procedure Date: 08/11/2018 Accession Number: [id number] / [id number] Procedure: XR - Chest 2 View X-Ray CPT Code: 07177 FULL RESULT: EXAM: CHEST RADIOGRAPHY EXAM DATE: 08/11/2018 03:03 PM. CLINICAL HISTORY: Cough and wheezing. Feels ill. COMPARISON: CHEST 2 VIEW 03/14/2018 1:15 PM. TECHNIQUE: 2 views. FINDINGS: Lungs/Pleura: No focal opacities evident. No pleural effusion. No pneumothorax. Normal volumes. Mediastinum: Heart and mediastinal contours are unremarkable. Other: No fractures identified. IMPRESSION: Normal 2-view chest radiography. RADIA
[2018-08-11 15:37] LABS: ALBUMIN 4.3 g/dL (3.2-5.5); ALBUMIN/GLOBULIN RATIO 1.2 (1.0-2.2); BILIRUBIN,TOTAL 0.6 mg/dL (0.2-1.0); CREATININE 1.2 mg/dL (0.4-1.0); MAGNESIUM 2.2 mg/dL (1.7-2.8)
[2018-08-11] MEDS ORDERED: POTASSIUM BICARB 25 MEQ TABLET PO STA (16:11)
[2018-08-11 16:18] LABS: GLUCOSE, URINE (UA) NEGATIVE (NEGATIVE); KETONES,URINE (UA) NEGATIVE (NEGATIVE); LEUKOCYTE ESTERASE, URINE TRACE (NEGATIVE); NITRITE,URINE NEGATIVE (NEGATIVE); OCCULT BLOOD,URINE TRACE-LYSE (NEGATIVE); PH,URINE 6.5 PH (5.0-7.5); PROTEIN,URINE NEGATIVE (NEGATIVE); UROBILINOGEN,URINE 0.2 (NORMAL) E.U./dL (NORMAL)
[2018-08-11 16:28] LABS: BILIRUBIN,URINE NEGATIVE (NEGATIVE); CLARITY,URINE CLEAR (CLEAR); ICTOTEST,URINE NEGATIVE
[2018-08-11 16:29] LABS: BACTERIA,URINE Rare /HPF (None Seen); CASTS, URINE 11-25 Hyaline Casts /LPF; RBC,URINE 0-5 /HPF (0-5); SQUAMOUS EPITHELIAL CELL,UR FEW Squamous (<= Few)
[2018-08-11 17:49] VITALS: BP 108/66
== END 2018-08-11 17:51 | disposition home or self-care (01) ==
LOC: ED 13:26
DX: B34.9 Viral infection, unspecified (principal); E86.0 Dehydration; R11.2 Nausea with vomiting, unspecified; R19.7 Diarrhea, unspecified; I10 Essential (primary) hypertension
CPT/HCPCS: 36415; 71046; 80053; 81001; 83605; 83690; 83735; 83880; 84443; 85025; 87086; 87275; 87276; 93005; 94640; 96374; 96375; 99283; 99284; A9270; J1170; J2765; 81003

== ENCOUNTER 2018-08-13 11:45 | Emergency (ER) | payer MEDICARE, MEDICAID ==
[2018-08-13 11:51] VITALS: BP 119/78
[2018-08-13] MEDS ORDERED: IPRATROPIUM/ALBUTEROL 3 ML NEB INH STA (12:56)
[2018-08-13 13:24] LABS: BASOPHILS # (AUTO) 0.1 10^3/uL (0.0-0.1); BASOPHILS % (AUTO) 0.5 %; EOSINOPHILS # (AUTO) 0.1 10^3/uL (0.0-0.7); EOSINOPHILS % (AUTO) 0.8 %; HGB - HEMOGLOBIN 12.2 g/dL (12.0-16.0); LYMPHOCYTES # (AUTO) 2.4 10^3/uL (1.5-3.5); MEAN CORPUSCULAR HEMOGLOBIN 34.5 pg (27.0-31.0); MEAN CORPUSCULAR HGB CONC 34.7 g/dL (32.0-36.0); MEAN CORPUSCULAR VOLUME 99.6 fL (81.0-99.0); MEAN PLATELET VOLUME 7.9 fL (7.9-10.8); MONOCYTES # (AUTO) 0.7 10^3/uL (0.0-1.0); MONOCYTES % (AUTO) 5.3 %; NEUTROPHILS # (AUTO) 9.4 10^3/uL (1.5-6.6); NEUTROPHILS % (AUTO) 74.4 %; PLT - PLATELET COUNT 256 10^3/uL (130-450); RED BLOOD COUNT 3.54 10^6/uL (4.20-5.40); RED CELL DISTRIBUTION WIDTH 13.4 % (12.0-15.0); WHITE BLOOD COUNT 12.6 x10^3/uL (4.8-10.8)
[2018-08-13 13:38] LABS: ALBUMIN 4.3 g/dL (3.2-5.5); ALBUMIN/GLOBULIN RATIO 1.3 (1.0-2.2); BILIRUBIN,TOTAL 0.5 mg/dL (0.2-1.0); CALCIUM 9.1 mg/dL (8.5-10.3); TOTAL PROTEIN 7.7 g/dL (6.7-8.2)
[2018-08-13 13:40] LABS: BILIRUBIN,URINE NEGATIVE (NEGATIVE); GLUCOSE, URINE (UA) NEGATIVE (NEGATIVE); KETONES,URINE (UA) NEGATIVE (NEGATIVE); LEUKOCYTE ESTERASE, URINE NEGATIVE (NEGATIVE); NITRITE,URINE NEGATIVE (NEGATIVE); OCCULT BLOOD,URINE NEGATIVE (NEGATIVE); PROTEIN,URINE NEGATIVE (NEGATIVE); UROBILINOGEN,URINE 0.2 (NORMAL) E.U./dL (NORMAL)
[2018-08-13 13:42] LABS: CLARITY,URINE CLEAR (CLEAR)
[2018-08-13] MEDS ORDERED: POTASSIUM CHLOR 10 MEQ/100 ML 10 MEQ/100 ML BAG IV ONE (14:04)
[2018-08-13] MEDS ORDERED: POTASSIUM BICARB 25 MEQ TABLET PO STA (14:04)
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
--- NOTE | 2018-08-13 14:41 | XRAY Report ---
Reason: soa wheezes rhonchi Procedure Date: 08/13/2018 Accession Number: [id number] / [id number] Procedure: XR - Chest 1 View X-Ray CPT Code: 26387 FULL RESULT: EXAM: CHEST RADIOGRAPHY EXAM DATE: 08/13/2018 02:00 PM. CLINICAL HISTORY: Soa wheezes rhonchi. COMPARISON: Chest 08/11/2018. TECHNIQUE: 1 view. FINDINGS: Lungs/Pleura: No focal opacities evident. No pleural effusion. No pneumothorax. There is persistent but increased right diaphragm elevation. Mediastinum: Within exam limitations, the cardiomediastinal contour appears normal. IMPRESSION: No evidence of acute thoracic process RADIA
[2018-08-13] MEDS ORDERED: oxyCODONE 5 MG TABLET PO STA (16:11)
== END 2018-08-13 16:24 | disposition home or self-care (01) ==
LOC: ED 11:45
DX: J44.1 Chronic obstructive pulmonary disease with (acute) exacerbation (principal); E87.6 Hypokalemia; F41.9 Anxiety disorder, unspecified; G47.30 Sleep apnea, unspecified; I10 Essential (primary) hypertension; J43.9 Emphysema, unspecified; Z99.89 Dependence on other enabling machines and devices
CPT/HCPCS: 36415; 71045; 80053; 81003; 83605; 83690; 84484; 85025; 87040; 93005; 94640; 96365; 99283; 99284; A9270; 81001; 87086

== ENCOUNTER 2018-08-22 13:02 | Outpatient (CLI) | payer MEDICARE, MEDICAID ==
[2018-08-22 18:03] LABS: BASOPHILS # (AUTO) 0.1 10^3/uL (0.0-0.1); BASOPHILS % (AUTO) 0.5 %; EOSINOPHILS # (AUTO) 0.3 10^3/uL (0.0-0.7); EOSINOPHILS % (AUTO) 2.6 %; HGB - HEMOGLOBIN 13.7 g/dL (12.0-16.0); LYMPHOCYTES # (AUTO) 3.5 10^3/uL (1.5-3.5); LYMPHOCYTES % (AUTO) 34.8 %; MEAN CORPUSCULAR HEMOGLOBIN 33.9 pg (27.0-31.0); MEAN CORPUSCULAR VOLUME 102.9 fL (81.0-99.0); MEAN PLATELET VOLUME 8.1 fL (7.9-10.8); MONOCYTES # (AUTO) 0.7 10^3/uL (0.0-1.0); MONOCYTES % (AUTO) 6.5 %; NEUTROPHILS # (AUTO) 5.6 10^3/uL (1.5-6.6); NEUTROPHILS % (AUTO) 55.6 %; PLT - PLATELET COUNT 293 10^3/uL (130-450); RED BLOOD COUNT 4.04 10^6/uL (4.20-5.40); RED CELL DISTRIBUTION WIDTH 14.3 % (12.0-15.0); WHITE BLOOD COUNT 10.1 x10^3/uL (4.8-10.8)
[2018-08-22 18:20] LABS: CALCIUM 9.1 mg/dL (8.5-10.3); CREATININE 0.9 mg/dL (0.4-1.0)
== END 2018-08-22 13:03 | disposition home or self-care (01) ==
LOC: LAB.WCP 13:02
PROVIDERS: ATTEND Physician Assistant Medical
DX: I10 Essential (primary) hypertension (principal); J44.9 Chronic obstructive pulmonary disease, unspecified
CPT/HCPCS: 36415; 80048; 85025

== ENCOUNTER 2018-12-01 08:00 | Outpatient (CLI) | payer MEDICARE | END 2018-12-01 23:59 | disposition home or self-care (01) | LOC: LAB.WCP 08:00 | PROVIDERS: ATTEND Physician Assistant Medical | DX: N32.81 Overactive bladder (principal); R31.9 Hematuria, unspecified | CPT/HCPCS: 81002 ==

== ENCOUNTER 2019-01-15 15:52 | Outpatient (CLI) | payer MEDICAID, MEDICARE ==
--- NOTE | 2019-01-16 12:18 | MRI Report ---
Reason: HYPERREFLEXIA Procedure Date: 01/15/2019 Accession Number: [id number] / [id number] Procedure: MRI - Cervical Spine W/O CPT Code: FULL RESULT: EXAM: MRI CERVICAL SPINE WITHOUT CONTRAST EXAM DATE: 01/15/2019 04:32 PM. CLINICAL HISTORY: HYPERREFLEXIA. COMPARISONS: None. TECHNIQUE: Multiplanar, multisequence T1-weighted and fluid-sensitive sequences of the cervical spine without contrast. Other: None. FINDINGS: Neurologic Structures: The visualized posterior fossa structures are unremarkable. No signal abnormality in the visualized spinal cord. Alignment: Normal alignment. No spondylolisthesis. Bone Marrow: Small amount of diskogenic endplate edema at C5-C6 and C6-C7. No fracture. No destructive bone lesion. Interspace Levels/Facets: C1-C2: Unremarkable. C2-C3: Mild right greater than left degenerative facet arthropathy. C3-C4: Annular disk bulge. Mild facet arthropathy. Mild central canal stenosis. No significant foraminal stenosis. C4-C5: Moderate left facet arthropathy. Small left uncinate prominence. Mild left foraminal stenosis. C5-C6: Mild disk height loss. Annular disk bulge and osteophyte formation with mild facet arthropathy and uncinate prominence. Mild to moderate central canal stenosis. Severe bilateral foraminal stenosis. C6-C7: Disk height loss. Annular disk bulge. Mild central canal stenosis. Moderate bilateral foraminal stenosis. C7-T1: Unremarkable. Musculature: Normal. No edema or fatty atrophy. Other: The paravertebral and prevertebral soft tissues are normal. IMPRESSION: 1. Multilevel cervical degenerative disk and facet arthropathy. 2. C5-C6 mild to moderate central canal stenosis. Severe bilateral foraminal stenosis. 3. C6-C7 mild central canal stenosis and moderate bilateral foraminal stenosis. 4. C4-C5 mild left foraminal stenosis. 5. C3-C4 mild central canal stenosis. RADIA
== END 2019-01-15 15:53 | disposition home or self-care (01) ==
LOC: DI 15:52
PROVIDERS: ATTEND Psychiatry & Neurology Neurology
DX: M50.30 Other cervical disc degeneration, unspecified cervical region (principal); M48.02 Spinal stenosis, cervical region; R29.2 Abnormal reflex
CPT/HCPCS: 72141

== ENCOUNTER 2019-01-19 12:55 | Emergency (ER) | payer MEDICARE ==
[2019-01-19] MEDS ORDERED: SODIUM CHLORIDE 0.9% 1,000 ML IV ONE ×2 (13:35→14:44)
[2019-01-19] MEDS ORDERED: BUTALB/ACETAM/CAFF 50/325/40MG TABLET PO STA (13:36)
--- NOTE | 2019-01-19 13:45 | ED Physician Documentation ---
History of Present Illness - Stated complaint Stated Complaint: MENDEZ/LOW BP - Chief complaint Chief Complaint: Neuro - History obtained from History obtained from: Patient - History of Present Illness Timing: Today Pain level max: 7 Pain level now: 6 - Additonal information Additional information: 58-year-old female with a neuroendocrine tumor presents to the emergency department with low blood pressure today. She states similar symptoms last week resolved with IV fluids. Also has a headache today. Has a history of migraines and is awaiting Botox injections. Has not taken anything for the pain. Has nausea but no vomiting. Is on Zofran at home. No head trauma. No focal neurological deficits. No fevers. She states it is hard for her to eat and drink well because of the neuroendocrine tumor. Review of Systems Ten Systems: 10 systems reviewed and negative Constitutional: denies: Fever, Chills, Myalgias Eyes: denies: Photophobia Ears: denies: Ear pain Nose: denies: Rhinorrhea / runny nose, Congestion Throat: denies: Sore throat Cardiac: denies: Chest pain / pressure Respiratory: denies: Cough GI: denies: Vomiting, Diarrhea Skin: denies: Rash Musculoskeletal: denies: Neck pain, Back pain Neurologic: denies: Headache PD PAST MEDICAL HISTORY - Past Medical History Cardiovascular: Hypertension, High cholesterol Respiratory: Asthma, COPD, Emphysema, Sleep apnea Neuro: Migraines Endocrine/Autoimmune: HyPOthyroidism, Systemic lupus erythematosus, Other GI: GERD, Ulcers, Colon polyps TICKET TAKER: None : Incontinence HEENT: None Psych: Depression, Panic attacks Musculoskeletal: Fibromyalgia, Fatigue, Chronic back pain Derm: None - Past Surgical History Past Surgical History: No General: Cholecystectomy, Colonoscopy /TICKET TAKER: Hysterectomy HEENT: Tonsil/Adenoidectomy - Present Medications Home Medications: Ambulatory Orders Medication Instructions Recorded Confirmed Albuterol Sulfate [Proair Hfa 2 puffs INH Q4H PRN 03/02/16 03/30/18 Inhaler] Dicyclomine HCl 10 mg PO QID 03/02/16 03/30/18 Pantoprazole Sodium 40 mg PO DAILY 03/02/16 03/30/18 Linaclotide [Linzess] 290 mcg ORAL DAILY 03/30/17 03/30/18 Ondansetron HCl [Zofran] 4 mg ORAL TID PRN 03/30/17 03/30/18 Oxybutynin Chloride [Ditropan Xl] 15 mg ORAL DAILY 03/30/17 03/30/18 Cetirizine [ZyrTEC] 10 mg PO DAILY #30 tablet 10/11/17 03/30/18 Nortriptyline [Pamelor] 20 mg PO QPM 10/11/17 03/30/18 Tiotropium [place] [Spiriva] 2 puffs INH DAILY 10/11/17 03/30/18 Atorvastatin Calcium 10 mg PO DAILY 02/10/18 03/30/18 Candesartan Cilexetil 16 mg PO DAILY 02/10/18 03/30/18 Duloxetine HCl 30 mg PO DAILY 02/10/18 03/30/18 Eletriptan HBr 40 mg PO PRN PRN MDD 80MG/DAY 02/10/18 03/30/18 HYDROcodone/ACET 10/325 [[place] 10 0.5 - 1 tab PO Q6H PRN 02/10/18 03/30/18 mg/325 mg] Levothyroxine [Synthroid] 50 mcg PO QDAC #10 tablet 02/12/18 03/30/18 raNITIdine HCl [Ranitidine HCl] 150 mg PO BID 03/14/18 03/30/18 Ipratropium/Albuterol [Duoneb] 3 ml INH Q6H PRN #40 neb 03/15/18 03/30/18 predniSONE [Deltasone] 20 mg PO [id number] #21 tab 03/15/18 03/30/18 Dexamethasone [Decadron] 4 mg PO DAILY #5 tablet 08/11/18 Ondansetron Odt [Zofran] 4 mg TL Q6H PRN #15 tablet 08/11/18 Oxycodone HCl/Acetaminophen 1 - 2 each PO Q6H PRN #14 tablet 08/11/18 [Percocet 5-325 mg Tablet] - Allergies Allergies/Adverse Reactions: Allergies Allergy/AdvReac Type Severity Reaction Status Date / Time diazepam [From Valium] Allergy Unknown Verified 01/19/19 13:03 NSAIDS (Non-Steroidal Allergy Unknown Verified 01/19/19 13:03 Anti-Inflamma zolpidem [From Ambien] Allergy Unknown Verified 01/19/19 13:03 - Social History Does the pt smoke?: No Smoking Status: Never smoker Does the pt drink ETOH?: No Does the pt have substance abuse?: Yes - Immunizations Immunizations are current?: Yes - POLST Patient has POLST: No POLST Status: Full Code PD ED PE NORMAL - Vitals Vital signs reviewed: Yes - General General: Alert and oriented X 3, No acute distress - HEENT HEENT: Atraumatic, PERRL, EOMI, Other (Dry lips) - Neck Neck: Supple, no meningeal sign - Cardiac Cardiac: RRR, Strong equal pulses - Respiratory Respiratory: No respiratory distress, Clear bilaterally - Abdomen Abdomen: Soft, Non tender, Non distended - Back Back: No spinal TTP - Derm Derm: Warm and dry - Extremities Extremities: No calf tenderness / cord - Neuro Neuro: Alert and oriented X 3 - Psych Psych: Normal mood, Normal affect Results - Vitals Vitals: Vital Signs - 24 hr 01/19/19 01/19/19 01/19/19 13:01 14:09 15:20 Temperature 36.3 C L 36.8 C 36.6 C Heart Rate 74 56 L 52 L Respiratory 18 18 19 Rate Blood Pressure 90/55 L 90/66 102/69 O2 Saturation 96 98 98 01/19/19 16:06 Temperature Heart Rate 60 Respiratory 20 Rate Blood Pressure 96/70 O2 Saturation 98 Oxygen O2 Source Room air - Labs Labs: Laboratory Tests 01/19/19 01/19/19 13:53 13:53 WBC 9.7 RBC 3.81 L Hgb 12.4 Hct 37.0 MCV 97.1 MCH 32.7 H MCHC 33.6 RDW 13.4 Plt Count 285 MPV 7.9 Neut # (Auto) 7.0 H Lymph # (Auto) 1.6 [place] # (Auto) 0.7 Eos # (Auto) 0.3 Baso # (Auto) 0.1 Absolute Nucleated RBC 0.00 Nucleated RBC % 0.0 Sodium 132 L Potassium 3.9 Chloride 98 L Carbon Dioxide 26 Anion Gap 8.0 BUN 21 H Creatinine 0.6 Estimated GFR (MDRD) 103 Glucose 92 Calcium 9.4 Total Bilirubin 0.6 AST 17 ALT < 10 L Alkaline Phosphatase 103 Total Protein 7.9 Albumin 3.7 Globulin 4.2 Albumin/Globulin Ratio 0.9 L Lipase 18 L PD MEDICAL DECISION MAKING - ED course Complexity details: reviewed old records, reviewed results, re-evaluated patient, considered differential, d/w patient ED course: Patient appears dehydrated. Feels better after IV fluids. Tolerating p.o. without difficulty. She states the only thing that works for her headache is Botox. She is scheduled for this. She then stated that they gave her a medication in [facility] but she does not remember what it was for her headache. I offered Toradol, she declines this. We gave her a dose of Fioricet, she states this does not help and that migraine medications do not help her migraines. I told her that because of her low blood pressure we were not going to use any narcotics. At that point she stated "just unhook me and send me home then". She has no evidence of subarachnoid hemorrhage. Patient counseled regarding signs and symptoms for which I believe and urgent re- evaluation would be necessary. Patient with good understanding of and agreement to plan and is comfortable going home at this time This document was made in part using voice recognition software. While efforts are made to proofread this document, sound alike and grammatical errors may occur. Departure - Departure Disposition: 01 Home, Self Care Clinical Impression: Dehydration Condition: Good Instructions: ED Dehydration Follow-Up: Alexandra Montana PA-C [Primary Care Provider] - Within 1 week Comments: Return if you worsen. Follow-up with your doctor for further evaluation and care. Discharge Date/Time: 01/19/19 16:22
[2019-01-19 14:00] LABS: BASOPHILS # (AUTO) 0.1 10^3/uL (0.0-0.1); BASOPHILS % (AUTO) 0.7 %; EOSINOPHILS # (AUTO) 0.3 10^3/uL (0.0-0.7); EOSINOPHILS % (AUTO) 3.5 %; HGB - HEMOGLOBIN 12.4 g/dL (12.0-16.0); LYMPHOCYTES # (AUTO) 1.6 10^3/uL (1.5-3.5); LYMPHOCYTES % (AUTO) 16.7 %; MEAN CORPUSCULAR HEMOGLOBIN 32.7 pg (27.0-31.0); MEAN CORPUSCULAR HGB CONC 33.6 g/dL (32.0-36.0); MEAN CORPUSCULAR VOLUME 97.1 fL (81.0-99.0); MEAN PLATELET VOLUME 7.9 fL (7.9-10.8); MONOCYTES # (AUTO) 0.7 10^3/uL (0.0-1.0); MONOCYTES % (AUTO) 6.9 %; NEUTROPHILS % (AUTO) 72.2 %; PLT - PLATELET COUNT 285 10^3/uL (130-450); RED BLOOD COUNT 3.81 10^6/uL (4.20-5.40); RED CELL DISTRIBUTION WIDTH 13.4 % (12.0-15.0); WHITE BLOOD COUNT 9.7 x10^3/uL (4.8-10.8)
[2019-01-19 14:09] LABS: ALBUMIN 3.7 g/dL (3.2-5.5); ALBUMIN/GLOBULIN RATIO 0.9 (1.0-2.2); ALKALINE PHOSPHATASE 103 IU/L (42-121); ALT ALANINE AMINOTRANSFERASE < 10 IU/L (10-60); AST ASPARTATE AMINOTRANSFERASE 17 IU/L (10-42); BILIRUBIN,TOTAL 0.6 mg/dL (0.2-1.0); BUN - BLOOD UREA NITROGEN 21 mg/dL (6-20); CALCIUM 9.4 mg/dL (8.5-10.3); CARBON DIOXIDE - CO2 26 mmol/L (21-32); CHLORIDE 98 mmol/L (101-111); CREATININE 0.6 mg/dL (0.4-1.0); GFR - MDRD 103 (>89); GLUCOSE 92 mg/dL (70-100); LIPASE 18 U/L (22-51); SODIUM 132 mmol/L (135-145); TOTAL PROTEIN 7.9 g/dL (6.7-8.2)
[2019-01-19 16:08] VITALS: BP 96/70
== END 2019-01-19 16:22 | disposition home or self-care (01) ==
LOC: ED 12:55
DX: E86.0 Dehydration (principal); I95.9 Hypotension, unspecified; D3A.8 Other benign neuroendocrine tumors; I10 Essential (primary) hypertension; E78.00 Pure hypercholesterolemia, unspecified; E03.9 Hypothyroidism, unspecified; M32.9 Systemic lupus erythematosus, unspecified; M79.7 Fibromyalgia
CPT/HCPCS: 36415; 80053; 83690; 85025; 96360; 99284; A9270

== ENCOUNTER 2019-02-09 10:51 | Emergency (ER) | payer MEDICARE ==
[2019-02-09 10:59] VITALS: BP 147/98
[2019-02-09 11:24] LABS: BASOPHILS % (AUTO) 0.8 %; EOSINOPHILS # (AUTO) 0.1 10^3/uL (0.0-0.7); EOSINOPHILS % (AUTO) 1.6 %; HGB - HEMOGLOBIN 11.8 g/dL (12.0-16.0); LYMPHOCYTES # (AUTO) 1.1 10^3/uL (1.5-3.5); MEAN CORPUSCULAR HEMOGLOBIN 32.5 pg (27.0-31.0); MEAN CORPUSCULAR HGB CONC 33.5 g/dL (32.0-36.0); MEAN CORPUSCULAR VOLUME 96.8 fL (81.0-99.0); MONOCYTES # (AUTO) 0.5 10^3/uL (0.0-1.0); MONOCYTES % (AUTO) 8.7 %; NEUTROPHILS # (AUTO) 3.8 10^3/uL (1.5-6.6); NEUTROPHILS % (AUTO) 68.9 %; PLT - PLATELET COUNT 208 10^3/uL (130-450); RED BLOOD COUNT 3.64 10^6/uL (4.20-5.40); WHITE BLOOD COUNT 5.5 x10^3/uL (4.8-10.8)
[2019-02-09 11:36] LABS: ALBUMIN 3.5 g/dL (3.2-5.5); BILIRUBIN,TOTAL 0.5 mg/dL (0.2-1.0); CALCIUM 8.3 mg/dL (8.5-10.3); CREATININE 0.6 mg/dL (0.4-1.0); TOTAL PROTEIN 7.1 g/dL (6.7-8.2)
--- NOTE | 2019-02-12 06:23 | ED Physician Documentation ---
History of Present Illness - Stated complaint Stated Complaint: left prior to exam - Chief complaint Chief Complaint: General PD PAST MEDICAL HISTORY - Past Medical History Cardiovascular: Hypertension, High cholesterol Respiratory: Asthma, COPD, Emphysema, Sleep apnea Neuro: Migraines Endocrine/Autoimmune: HyPOthyroidism, Systemic lupus erythematosus, Other GI: GERD, Ulcers, Colon polyps COSTUME RENTAL CLERK: None : Incontinence HEENT: None Psych: Depression, Panic attacks Musculoskeletal: Fibromyalgia, Fatigue, Chronic back pain Derm: None - Past Surgical History Past Surgical History: No General: Cholecystectomy, Colonoscopy /COSTUME RENTAL CLERK: Hysterectomy HEENT: Tonsil/Adenoidectomy - Present Medications Home Medications: Ambulatory Orders Medication Instructions Recorded Confirmed Albuterol Sulfate [Proair Hfa 2 puffs INH Q4H PRN 03/02/16 03/30/18 Inhaler] Dicyclomine HCl 10 mg PO QID 03/02/16 03/30/18 Pantoprazole Sodium 40 mg PO DAILY 03/02/16 03/30/18 Linaclotide [Linzess] 290 mcg ORAL DAILY 03/30/17 03/30/18 Ondansetron HCl [Zofran] 4 mg ORAL TID PRN 03/30/17 03/30/18 Oxybutynin Chloride [Ditropan Xl] 15 mg ORAL DAILY 03/30/17 03/30/18 Cetirizine [ZyrTEC] 10 mg PO DAILY #30 tablet 10/11/17 03/30/18 Nortriptyline [Pamelor] 20 mg PO QPM 10/11/17 03/30/18 Tiotropium [place] [Spiriva] 2 puffs INH DAILY 10/11/17 03/30/18 Atorvastatin Calcium 10 mg PO DAILY 02/10/18 03/30/18 Candesartan Cilexetil 16 mg PO DAILY 02/10/18 03/30/18 Duloxetine HCl 30 mg PO DAILY 02/10/18 03/30/18 Eletriptan HBr 40 mg PO PRN PRN MDD 80MG/DAY 02/10/18 03/30/18 HYDROcodone/ACET 10/325 [[place] 10 0.5 - 1 tab PO Q6H PRN 02/10/18 03/30/18 mg/325 mg] Levothyroxine [Synthroid] 50 mcg PO QDAC #10 tablet 05/16/18 07/01/18 raNITIdine HCl [Ranitidine HCl] 150 mg PO BID 03/14/18 03/30/18 Ipratropium/Albuterol [Duoneb] 3 ml INH Q6H PRN #40 neb 03/15/18 03/30/18 predniSONE [Deltasone] 20 mg PO [id number] #21 tab 03/15/18 03/30/18 Dexamethasone [Decadron] 4 mg PO DAILY #5 tablet 08/11/18 Ondansetron Odt [Zofran] 4 mg TL Q6H PRN #15 tablet 08/11/18 Oxycodone HCl/Acetaminophen 1 - 2 each PO Q6H PRN #14 tablet 08/11/18 [Percocet 5-325 mg Tablet] - Allergies Allergies/Adverse Reactions: Allergies Allergy/AdvReac Type Severity Reaction Status Date / Time diazepam [From Valium] Allergy Unknown Verified 02/09/19 10:59 NSAIDS (Non-Steroidal Allergy Unknown Verified 02/09/19 10:59 Anti-Inflamma zolpidem [From Ambien] Allergy Unknown Verified 02/09/19 10:59 - Social History Does the pt smoke?: No Smoking Status: Never smoker Does the pt drink ETOH?: No Does the pt have substance abuse?: Yes - Immunizations Immunizations are current?: Yes - POLST Patient has POLST: No POLST Status: Full Code Results - Vitals Vitals: Oxygen O2 Source Nasal cannula - Labs Labs: Laboratory Tests 02/09/19 02/09/19 11:18 11:18 WBC 5.5 RBC 3.64 L Hgb 11.8 L Hct 35.3 L MCV 96.8 MCH 32.5 H MCHC 33.5 RDW 14.0 Plt Count 208 MPV 8.0 Neut # (Auto) 3.8 Lymph # (Auto) 1.1 L [place] # (Auto) 0.5 Eos # (Auto) 0.1 Baso # (Auto) 0.0 Absolute Nucleated RBC 0.00 Nucleated RBC % 0.0 Sodium 132 L Potassium 3.4 L Chloride 96 L Carbon Dioxide 24 Anion Gap 12.0 BUN 7 Creatinine 0.6 Estimated GFR (MDRD) 103 Glucose 87 Calcium 8.3 L Total Bilirubin 0.5 AST 27 ALT 16 Alkaline Phosphatase 98 Total Protein 7.1 Albumin 3.5 Globulin 3.6 Albumin/Globulin Ratio 1.0 Lipase 17 L Departure - Departure Disposition: ED Left Without Being Seen Discharge Date/Time: 02/09/19 11:55
== END 2019-02-09 11:55 | disposition left against medical advice (07) ==
LOC: ED 10:51
DX: Z53.1 Procedure and treatment not carried out because of patient's decision for reasons of belief and group pressure (principal)
CPT/HCPCS: 36415; 80053; 83690; 85025; 93005

== ENCOUNTER 2019-03-13 11:26 | Emergency (ER) | payer MEDICARE ==
[2019-03-13 12:20] LABS: BASOPHILS # (AUTO) 0.1 10^3/uL (0.0-0.1); BASOPHILS % (AUTO) 0.6 %; EOSINOPHILS # (AUTO) 0.6 10^3/uL (0.0-0.7); HGB - HEMOGLOBIN 11.7 g/dL (12.0-16.0); LYMPHOCYTES # (AUTO) 2.2 10^3/uL (1.5-3.5); MEAN CORPUSCULAR HEMOGLOBIN 32.9 pg (27.0-31.0); MEAN CORPUSCULAR HGB CONC 33.4 g/dL (32.0-36.0); MEAN CORPUSCULAR VOLUME 98.4 fL (81.0-99.0); MEAN PLATELET VOLUME 7.5 fL (7.9-10.8); MONOCYTES # (AUTO) 0.6 10^3/uL (0.0-1.0); MONOCYTES % (AUTO) 6.2 %; NEUTROPHILS # (AUTO) 6.6 10^3/uL (1.5-6.6); NEUTROPHILS % (AUTO) 65.2 %; PLT - PLATELET COUNT 283 10^3/uL (130-450); RED BLOOD COUNT 3.54 10^6/uL (4.20-5.40); RED CELL DISTRIBUTION WIDTH 15.3 % (12.0-15.0); WHITE BLOOD COUNT 10.2 x10^3/uL (4.8-10.8)
[2019-03-13 12:35] LABS: ALBUMIN 3.8 g/dL (3.2-5.5); BILIRUBIN,TOTAL 0.4 mg/dL (0.2-1.0); CALCIUM 8.9 mg/dL (8.5-10.3); CREATININE 0.6 mg/dL (0.4-1.0); TOTAL PROTEIN 7.5 g/dL (6.7-8.2)
--- NOTE | 2019-03-13 13:11 | ED Physician Documentation ---
History of Present Illness - Stated complaint Stated Complaint: DIZZY/FALLING - Chief complaint Chief Complaint: General - History obtained from History obtained from: Patient - History of Present Illness Timing: How many days ago (4-5) Pain level max: 0 Pain level now: 0 Improved by: lying down Worsened by: standing up. - Additonal information Additional information: 58 year old female, being treated for "stomach caner". had a "whole body scan" on saturday in [place] to see if the cancer had spread. earlier this week started feeling weaker than usual. Occasionally uses a walker. Feels lightheaded. Room is not spinning. No focal neurological deficits. No head, neck or back pain. States has lost control of her bowels at night in bed with diarrhea. No loss during the day. States she doesn't eat or drink much at home. Wears oxygen 22/04 Review of Systems Ten Systems: 10 systems reviewed and negative Constitutional: denies: Fever, Chills Throat: denies: Sore throat Respiratory: denies: Cough GI: denies: Nausea, Vomiting, Diarrhea Skin: denies: Rash Musculoskeletal: denies: Neck pain, Back pain Neurologic: denies: Headache, Head injury, LOC PD PAST MEDICAL HISTORY - Past Medical History Cardiovascular: Hypertension, High cholesterol Respiratory: Asthma, COPD, Emphysema, Sleep apnea Neuro: Migraines Endocrine/Autoimmune: HyPOthyroidism, Systemic lupus erythematosus, Other GI: GERD, Ulcers, Colon polyps WELFARE PROJECT MANAGER: None : Incontinence HEENT: None Psych: Depression, Panic attacks Musculoskeletal: Fibromyalgia, Fatigue, Chronic back pain Derm: None - Past Surgical History Past Surgical History: No General: Cholecystectomy, Colonoscopy /WELFARE PROJECT MANAGER: Hysterectomy HEENT: Tonsil/Adenoidectomy - Present Medications Home Medications: Ambulatory Orders Medication Instructions Recorded Confirmed Albuterol Sulfate [Proair Hfa 2 puffs INH Q4H PRN 03/02/16 03/13/19 Inhaler] Dicyclomine HCl 10 mg PO QID 03/02/16 03/13/19 Pantoprazole Sodium 40 mg PO DAILY 03/02/16 03/13/19 Linaclotide [Linzess] 290 mcg ORAL DAILY 03/30/17 03/13/19 Ondansetron HCl [Zofran] 4 mg ORAL TID PRN 03/30/17 03/13/19 Oxybutynin Chloride [Ditropan Xl] 15 mg ORAL DAILY 03/30/17 03/13/19 Tiotropium [place] [Spiriva] 2 puffs INH DAILY 10/11/17 03/13/19 Atorvastatin Calcium 10 mg PO DAILY 02/10/18 03/13/19 Duloxetine HCl 30 mg PO DAILY 02/10/18 03/13/19 Eletriptan HBr 40 mg PO PRN PRN MDD 80MG/DAY 02/10/18 03/13/19 HYDROcodone/ACET 10/325 [[place] 10 0.5 - 1 tab PO Q6H PRN 02/10/18 03/13/19 mg/325 mg] Levothyroxine [Synthroid] 50 mcg PO QDAC #10 tablet 02/12/18 03/13/19 raNITIdine HCl [Ranitidine HCl] 150 mg PO BID 03/14/18 03/13/19 Ipratropium/Albuterol [Duoneb] 3 ml INH Q6H PRN #40 neb 03/15/18 03/13/19 Ondansetron Odt [Zofran] 4 mg TL Q6H PRN #15 tablet 08/11/18 03/13/19 Oxycodone HCl/Acetaminophen 1 - 2 each PO Q6H PRN #14 tablet 08/11/18 03/13/19 [Percocet 5-325 mg Tablet] - Allergies Allergies/Adverse Reactions: Allergies Allergy/AdvReac Type Severity Reaction Status Date / Time diazepam [From Valium] Allergy Unknown Verified 02/09/19 10:59 NSAIDS (Non-Steroidal Allergy Unknown Verified 02/09/19 10:59 Anti-Inflamma zolpidem [From Ambien] Allergy Unknown Verified 02/09/19 10:59 - Social History Does the pt smoke?: No Smoking Status: Never smoker Does the pt drink ETOH?: No Does the pt have substance abuse?: Yes - Immunizations Immunizations are current?: Yes - POLST Patient has POLST: No POLST Status: Full Code PD ED PE NORMAL - Vitals Vital signs reviewed: Yes - General General: Alert and oriented X 3, No acute distress, Other (thin female) - HEENT HEENT: Moist mucous membranes - Neck Neck: Supple, no meningeal sign - Cardiac Cardiac: RRR - Respiratory Respiratory: No respiratory distress, Clear bilaterally - Abdomen Abdomen: Soft, Non tender, Non distended - Derm Derm: Warm and dry - Neuro Neuro: Alert and oriented X 3 - Psych Psych: Normal mood, Normal affect Results - Vitals Vitals: Vital Signs - 24 hr 03/13/19 03/13/19 03/13/19 11:35 13:19 13:59 Temperature 36.4 C L 36.3 C L Heart Rate 63 51 L Respiratory 20 18 18 Rate Blood Pressure 109/73 144/93 H O2 Saturation 96 98 03/13/19 14:30 Temperature Heart Rate 78 Respiratory 18 Rate Blood Pressure 145/95 H O2 Saturation 99 Oxygen O2 Source Room air - EKG (time done) 1130 Rate: Rate (enter#) (59) Rhythm: NSR Grahn: Normal Intervals: Normal DE QRS: Normal Ischemia: Normal ST segments - Labs Labs: Laboratory Tests 03/13/19 03/13/19 03/13/19 11:41 12:14 12:14 WBC 10.2 RBC 3.54 L Hgb 11.7 L Hct 34.9 L MCV 98.4 MCH 32.9 H MCHC 33.4 RDW 15.3 H Plt Count 283 MPV 7.5 L Neut # (Auto) 6.6 Lymph # (Auto) 2.2 [place] # (Auto) 0.6 Eos # (Auto) 0.6 Baso # (Auto) 0.1 Absolute Nucleated RBC 0.00 Nucleated RBC % 0.0 Sodium 138 Potassium 3.4 L Chloride 102 Carbon Dioxide 25 Anion Gap 11.0 BUN 12 Creatinine 0.6 Estimated GFR (MDRD) 103 Glucose 83 POC Whole Bld Glucose 87 Calcium 8.9 Total Bilirubin 0.4 AST 25 ALT 31 Alkaline Phosphatase 112 Total Protein 7.5 Albumin 3.8 Globulin 3.7 Albumin/Globulin Ratio 1.0 Lipase 15 L Urine Color Urine Clarity Urine pH Ur Specific [place] Urine Protein Urine Glucose (UA) Urine Ketones Urine Occult Blood Urine Nitrite Urine Bilirubin Urine Urobilinogen Ur Leukocyte Esterase Urine RBC Urine WBC Ur Squamous Epith Cells Urine Bacteria Urine Casts Urine Mucus Ur Microscopic Review Urine Culture Comments 03/13/19 14:40 WBC RBC Hgb Hct MCV MCH MCHC RDW Plt Count MPV Neut # (Auto) Lymph # (Auto) [place] # (Auto) Eos # (Auto) Baso # (Auto) Absolute Nucleated RBC Nucleated RBC % Sodium Potassium Chloride Carbon Dioxide Anion Gap BUN Creatinine Estimated GFR (MDRD) Glucose POC Whole Bld Glucose Calcium Total Bilirubin AST ALT Alkaline Phosphatase Total Protein Albumin Globulin Albumin/Globulin Ratio Lipase Urine Color YELLOW Urine Clarity HAZY Urine pH 6.5 Ur Specific [place] <=1.005 Urine Protein NEGATIVE Urine Glucose (UA) NEGATIVE Urine Ketones NEGATIVE Urine Occult Blood NEGATIVE Urine Nitrite NEGATIVE Urine Bilirubin NEGATIVE Urine Urobilinogen 0.2 (NORMAL) Ur Leukocyte Esterase NEGATIVE Urine RBC 0-5 Urine WBC 0-3 Ur Squamous Epith Cells MANY Squamous H Urine Bacteria Few Urine Casts 0-2 Granular Casts Urine Mucus Marked Strands Ur Microscopic Review INDICATED Urine Culture Comments NOT INDICATED PD MEDICAL DECISION MAKING - ED course Complexity details: reviewed results, re-evaluated patient, considered differential, d/w patient ED course: 58-year-old female feels better after IV fluids. Headache resolved with Imitrex. She is well-appearing, nontoxic. Afebrile. Walking without difficulty in the emergency department. She request to go home at this time. Patient counseled regarding signs and symptoms for which I believe and urgent re-evaluation would be necessary. Patient with good understanding of and agreement to plan and is comfortable going home at this time This document was made in part using voice recognition software. While efforts are made to proofread this document, sound alike and grammatical errors may occur. Departure - Departure Disposition: 01 Home, Self Care Clinical Impression: Dehydration Condition: Good Instructions: ED Dehydration Follow-Up: Alexandra Montana PA-C [Primary Care Provider] - Comments: Drink plenty of water at home. Return if you worsen. Discharge Date/Time: 03/13/19 15:10
[2019-03-13] MEDS ORDERED: SUMAtriptan 6 MG/0.5 ML VIAL SUBQ STA (13:25)
[2019-03-13] MEDS ORDERED: SODIUM CHLORIDE 0.9% 1,000 ML IV ONE (13:25)
[2019-03-13 14:31] VITALS: BP 145/95
[2019-03-13 14:45] LABS: BILIRUBIN,URINE NEGATIVE (NEGATIVE); GLUCOSE, URINE (UA) NEGATIVE (NEGATIVE); KETONES,URINE (UA) NEGATIVE (NEGATIVE); LEUKOCYTE ESTERASE, URINE NEGATIVE (NEGATIVE); NITRITE,URINE NEGATIVE (NEGATIVE); OCCULT BLOOD,URINE NEGATIVE (NEGATIVE); PH,URINE 6.5 PH (5.0-7.5); PROTEIN,URINE NEGATIVE (NEGATIVE); UROBILINOGEN,URINE 0.2 (NORMAL) E.U./dL (NORMAL)
[2019-03-13 14:46] LABS: CLARITY,URINE HAZY (CLEAR)
[2019-03-13 14:58] LABS: BACTERIA,URINE Few /HPF (None Seen); CASTS, URINE 0-2 Granular Casts /LPF; MUCUS,URINE Marked Strands; RBC,URINE 0-5 /HPF (0-5); SQUAMOUS EPITHELIAL CELL,UR MANY Squamous (<= Few)
== END 2019-03-13 15:10 | disposition home or self-care (01) ==
LOC: ED 11:26
DX: E86.0 Dehydration (principal); R51 Headache; R53.1 Weakness; C16.9 Malignant neoplasm of stomach, unspecified; I10 Essential (primary) hypertension; M32.9 Systemic lupus erythematosus, unspecified
CPT/HCPCS: 36415; 80053; 81001; 81003; 83690; 85025; 87086; 93005; 96360; 96372; 99283

== ENCOUNTER 2019-03-17 14:34 | Outpatient (CLI) | payer MEDICARE ==
[2019-03-17 19:36] LABS: ALBUMIN 3.5 g/dL (3.2-5.5); ALBUMIN/GLOBULIN RATIO 0.9 (1.0-2.2); BILIRUBIN,TOTAL 0.4 mg/dL (0.2-1.0); CALCIUM 8.8 mg/dL (8.5-10.3); CREATININE 0.6 mg/dL (0.4-1.0); TOTAL PROTEIN 7.2 g/dL (6.7-8.2)
== END 2019-03-17 14:35 | disposition home or self-care (01) ==
LOC: LAB.WCP 14:34
PROVIDERS: ATTEND Family Medicine
DX: E86.0 Dehydration (principal)
CPT/HCPCS: 36415; 80053

== ENCOUNTER 2019-03-28 13:23 | Outpatient (CLI) | payer MEDICARE | END 2019-03-28 13:24 | disposition critical access hospital (66) | LOC: EMS 13:23 | PROVIDERS: ATTEND Surgery | DX: R53.1 Weakness (principal) | CPT/HCPCS: A0425; A0429 ==

== ENCOUNTER 2019-03-28 13:43 | Emergency (ER) | payer MEDICARE ==
[2019-03-28 14:08] LABS: BASOPHILS # (AUTO) 0.1 10^3/uL (0.0-0.1); BASOPHILS % (AUTO) 0.6 %; EOSINOPHILS # (AUTO) 0.4 10^3/uL (0.0-0.7); EOSINOPHILS % (AUTO) 3.6 %; HGB - HEMOGLOBIN 12.2 g/dL (12.0-16.0); LYMPHOCYTES # (AUTO) 2.6 10^3/uL (1.5-3.5); LYMPHOCYTES % (AUTO) 23.1 %; MEAN CORPUSCULAR HEMOGLOBIN 33.4 pg (27.0-31.0); MEAN CORPUSCULAR HGB CONC 32.4 g/dL (32.0-36.0); MEAN CORPUSCULAR VOLUME 103.3 fL (81.0-99.0); MEAN PLATELET VOLUME 10.4 fL (7.9-10.8); MONOCYTES # (AUTO) 0.6 10^3/uL (0.0-1.0); MONOCYTES % (AUTO) 5.3 %; NEUTROPHILS # (AUTO) 7.5 10^3/uL (1.5-6.6); PLT - PLATELET COUNT 208 10^3/uL (130-450); RED BLOOD COUNT 3.65 10^6/uL (4.20-5.40); RED CELL DISTRIBUTION WIDTH 15.2 % (12.0-15.0); WHITE BLOOD COUNT 11.1 x10^3/uL (4.8-10.8)
[2019-03-28 14:22] LABS: ALBUMIN 3.4 g/dL (3.2-5.5); ALBUMIN/GLOBULIN RATIO 0.9 (1.0-2.2); BILIRUBIN,TOTAL 0.5 mg/dL (0.2-1.0); CALCIUM 8.6 mg/dL (8.5-10.3); CREATININE 0.7 mg/dL (0.4-1.0)
--- NOTE | 2019-03-28 14:27 | XRAY Report ---
Reason: CP Procedure Date: 03/28/2019 Accession Number: [id number] / [id number] Procedure: XR - Chest 1 View X-Ray CPT Code: 93584 FULL RESULT: EXAM: CHEST RADIOGRAPHY EXAM DATE: 03/28/2019 02:13 PM. CLINICAL HISTORY: CP. COMPARISON: CHEST 1 VIEW 08/13/2018 2:16 PM CHEST 2 VIEW 08/11/2018 3:03 PM. TECHNIQUE: 1 view. FINDINGS: Lungs/Pleura: No focal opacities evident. No pleural effusion. No pneumothorax. Mediastinum: Stable cardiomediastinal silhouette. Other: None. IMPRESSION: No evidence for acute cardiothoracic process. RADIA
--- NOTE | 2019-03-28 14:48 | ED Physician Documentation ---
History of Present Illness - Stated complaint Stated Complaint: WEAKNESS - Chief complaint Chief Complaint: Resp - History obtained from History obtained from: Patient - History of Present Illness Timing: Other (58 yo with recent dx pancreatic CA. Diarrhea for a few days, cloudy thinking, increased urination. Reported fevers/chills. Productive cough and shortness of breath. She has underlying COPD for which at baseline she uses oxygen and takes Spiriva. She also takes Zithromax 3 times a week and has been on Augmentin and steroids at an unknown dose for the last 5 days.) Review of Systems Ten Systems: 10 systems reviewed and negative Constitutional: reports: Fever, Chills, Fatigue Nose: denies: Rhinorrhea / runny nose, Congestion Throat: denies: Sore throat Cardiac: reports: Chest pain / pressure (with coughing). denies: Palpitations Respiratory: reports: Dyspnea, Cough GI: reports: Abdominal Pain, Diarrhea Musculoskeletal: denies: Neck pain, Back pain PD PAST MEDICAL HISTORY - Past Medical History Cardiovascular: Hypertension, High cholesterol Respiratory: Asthma, COPD, Emphysema, Sleep apnea Neuro: Migraines Endocrine/Autoimmune: HyPOthyroidism, Systemic lupus erythematosus, Other GI: GERD, Ulcers, Colon polyps ROLL UP GUIDER OPERATOR: None : Incontinence HEENT: None Psych: Depression, Panic attacks Musculoskeletal: Fibromyalgia, Fatigue, Chronic back pain Derm: None - Past Surgical History Past Surgical History: No General: Cholecystectomy, Colonoscopy /ROLL UP GUIDER OPERATOR: Hysterectomy HEENT: Tonsil/Adenoidectomy - Present Medications Home Medications: Ambulatory Orders Medication Instructions Recorded Confirmed Albuterol Sulfate [Proair Hfa 2 puffs INH Q4H PRN 03/02/16 03/13/19 Inhaler] Dicyclomine HCl 10 mg PO QID 03/02/16 03/13/19 Pantoprazole Sodium 40 mg PO DAILY 03/02/16 03/13/19 Linaclotide [Linzess] 290 mcg ORAL DAILY 03/30/17 03/13/19 Ondansetron HCl [Zofran] 4 mg ORAL TID PRN 03/30/17 03/13/19 Oxybutynin Chloride [Ditropan Xl] 15 mg ORAL DAILY 03/30/17 03/13/19 Tiotropium [place] [Spiriva] 2 puffs INH DAILY 10/11/17 03/13/19 Atorvastatin Calcium 10 mg PO DAILY 02/10/18 03/13/19 Duloxetine HCl 30 mg PO DAILY 02/10/18 03/13/19 Eletriptan HBr 40 mg PO PRN PRN MDD 80MG/DAY 02/10/18 03/13/19 HYDROcodone/ACET 10/325 [[place] 10 0.5 - 1 tab PO Q6H PRN 02/10/18 03/13/19 mg/325 mg] Levothyroxine [Synthroid] 50 mcg PO QDAC #10 tablet 02/12/18 03/13/19 raNITIdine HCl [Ranitidine HCl] 150 mg PO BID 03/14/18 03/13/19 Ipratropium/Albuterol [Duoneb] 3 ml INH Q6H PRN #40 neb 03/15/18 03/13/19 Ondansetron Odt [Zofran] 4 mg TL Q6H PRN #15 tablet 08/11/18 03/13/19 Oxycodone HCl/Acetaminophen 1 - 2 each PO Q6H PRN #14 tablet 08/11/18 03/13/19 [Percocet 5-325 mg Tablet] - Allergies Allergies/Adverse Reactions: Allergies Allergy/AdvReac Type Severity Reaction Status Date / Time diazepam [From Valium] Allergy Unknown Verified 03/28/19 13:50 NSAIDS (Non-Steroidal Allergy Unknown Verified 03/28/19 13:50 Anti-Inflamma zolpidem [From Ambien] Allergy Unknown Verified 03/28/19 13:50 - Social History Does the pt smoke?: No Smoking Status: Former smoker Does the pt drink ETOH?: No Does the pt have substance abuse?: Yes - Immunizations Immunizations are current?: Yes - POLST Patient has POLST: No POLST Status: Full Code PD ED PE NORMAL - Vitals Vital signs reviewed: Yes - General General: Alert and oriented X 3, No acute distress - HEENT HEENT: PERRL, EOMI - Neck Neck: Supple, no meningeal sign, No bony TTP - Cardiac Cardiac: RRR, No murmur - Respiratory Respiratory: Other (rhonchorous BOTH lungs, diminished on R; non labored) - Abdomen Abdomen: Soft, Non tender - Back Back: No CVA TTP, No spinal TTP - Derm Derm: Normal color, Warm and dry - Extremities Extremities: No edema, No calf tenderness / cord - Neuro Neuro: Alert and oriented X 3, Normal speech - Psych Psych: Normal mood, Normal affect Results - Vitals Vitals: Vital Signs - 24 hr 03/28/19 03/28/19 03/28/19 13:45 14:30 15:18 Temperature 36.5 C Heart Rate 59 L 79 64 Respiratory 24 17 18 Rate Blood Pressure 120/77 127/70 O2 Saturation 94 98 Oxygen O2 Source Room air Oxygen Flow Rate 2 - EKG (time done) 1358 Rate: Rate (enter#) (55) Rhythm: NSR [place]: Normal Intervals: Normal IN QRS: Normal Ischemia: Normal ST segments - Labs Labs: Laboratory Tests 03/28/19 03/28/19 03/28/19 14:01 14:01 14:01 WBC 11.1 H RBC 3.65 L Hgb 12.2 Hct 37.7 MCV 103.3 H MCH 33.4 H MCHC 32.4 RDW 15.2 H Plt Count 208 MPV 10.4 Neut # (Auto) 7.5 H Lymph # (Auto) 2.6 [place] # (Auto) 0.6 Eos # (Auto) 0.4 Baso # (Auto) 0.1 Absolute Nucleated RBC 0.00 Nucleated RBC % 0.0 Sodium 136 Potassium 4.4 Chloride 103 Carbon Dioxide 23 Anion Gap 10.0 BUN 14 Creatinine 0.7 Estimated GFR (MDRD) 86 L Glucose 93 Calcium 8.6 Total Bilirubin 0.5 AST 20 ALT 37 Alkaline Phosphatase 108 Troponin I < 0.04 Total Protein 7.0 Albumin 3.4 Globulin 3.6 Albumin/Globulin Ratio 0.9 L Lipase 21 L Urine Color Urine Clarity Urine pH Ur Specific [place] Urine Protein Urine Glucose (UA) Urine Ketones Urine Occult Blood Urine Nitrite Urine Bilirubin Urine Urobilinogen Ur Leukocyte Esterase Ur Microscopic Review Urine Culture Comments 03/28/19 16:23 WBC RBC Hgb Hct MCV MCH MCHC RDW Plt Count MPV Neut # (Auto) Lymph # (Auto) [place] # (Auto) Eos # (Auto) Baso # (Auto) Absolute Nucleated RBC Nucleated RBC % Sodium Potassium Chloride Carbon Dioxide Anion Gap BUN Creatinine Estimated GFR (MDRD) Glucose Calcium Total Bilirubin AST ALT Alkaline Phosphatase Troponin I Total Protein Albumin Globulin Albumin/Globulin Ratio Lipase Urine Color YELLOW Urine Clarity CLEAR Urine pH 5.5 Ur Specific [place] <=1.005 Urine Protein NEGATIVE Urine Glucose (UA) NEGATIVE Urine Ketones NEGATIVE Urine Occult Blood NEGATIVE Urine Nitrite NEGATIVE Urine Bilirubin NEGATIVE Urine Urobilinogen 0.2 (NORMAL) Ur Leukocyte Esterase NEGATIVE Ur Microscopic Review NOT INDICATED Urine Culture Comments NOT INDICATED - Rads (name of study) 1 v chest Radiology: EMP read contemporaneously (normal) PD MEDICAL DECISION MAKING - ED course ED course: 58-year-old woman with recent diagnosis of pancreatic cancer and underlying COPD with oxygen dependence presents with weakness, productive cough. Her chest x- ray and vital signs are unremarkable. Lungs cleared up after a DuoNeb. She is already on appropriate antibiotics and steroids and I would not call this a treatment failure given her nonlabored breathing. Departure - Departure Disposition: 01 Home, Self Care Clinical Impression: Moderate COPD (chronic obstructive pulmonary disease) Condition: Good Record reviewed to determine appropriate education?: Yes Health Concerns: weakness, copd Plan of Treatment: She is on appropriate antibiotics and steroids. Vital signs are normal without labored breathing. Ambulates through the solo without difficulty. Continue current plan of care. Instructions: COPD Dc Comments: Call your doctor to arrange a follow-up appointment, make the next available appointment. In the interim, return anytime if worse or if new symptoms develop.
[2019-03-28] MEDS ORDERED: IPRATROPIUM/ALBUTEROL 3 ML NEB INH STA (15:01)
[2019-03-28 16:35] LABS: BILIRUBIN,URINE NEGATIVE (NEGATIVE); CLARITY,URINE CLEAR (CLEAR); GLUCOSE, URINE (UA) NEGATIVE (NEGATIVE); KETONES,URINE (UA) NEGATIVE (NEGATIVE); LEUKOCYTE ESTERASE, URINE NEGATIVE (NEGATIVE); NITRITE,URINE NEGATIVE (NEGATIVE); OCCULT BLOOD,URINE NEGATIVE (NEGATIVE); PH,URINE 5.5 PH (5.0-7.5); PROTEIN,URINE NEGATIVE (NEGATIVE); UROBILINOGEN,URINE 0.2 (NORMAL) E.U./dL (NORMAL)
[2019-03-28 16:56] VITALS: BP 127/70
== END 2019-03-28 17:07 | disposition home or self-care (01) ==
LOC: EDUNIT# → ED 13:43
DX: J43.9 Emphysema, unspecified (principal); Z99.81 Dependence on supplemental oxygen; C25.9 Malignant neoplasm of pancreas, unspecified; I10 Essential (primary) hypertension; M32.9 Systemic lupus erythematosus, unspecified; Z87.891 Personal history of nicotine dependence
CPT/HCPCS: 36415; 71045; 80053; 81001; 81003; 83690; 84484; 85025; 87086; 93005; 94640; 99283; 99284

== ENCOUNTER 2019-04-28 10:16 | Outpatient (CLI) | payer MEDICARE ==
[2019-04-28 13:07] LABS: HB2 TOTAL 13.2 g/dL; HEMOGLOBIN A1C 0.56 g/dL
[2019-04-28 13:24] LABS: CHOL/HDL RATIO 3.8 (<4.4); CHOLESTEROL 195 mg/dL; HDL CHOLESTEROL 51 mg/dL; LDL CHOLESTEROL,CALCULATED 126 mg/dL; LDL/HDL RATIO 2.5 (<4.4); VLDL CHOLESTEROL 18 mg/dL
[2019-04-28 14:42] LABS: FREE T4 (FREE THYROXINE) 0.67 ng/dL (0.58-1.64)
== END 2019-04-28 23:59 | disposition home or self-care (01) ==
LOC: LAB.WCP 10:16
PROVIDERS: ATTEND Physician Assistant Medical
DX: E78.5 Hyperlipidemia, unspecified (principal); E03.9 Hypothyroidism, unspecified; E53.8 Deficiency of other specified B group vitamins; R73.03 Prediabetes
CPT/HCPCS: 36415; 80061; 82607; 83036; 83721; 84439; 84443

== ENCOUNTER 2019-06-08 11:30 | Outpatient (CLI) | payer MEDICARE, MEDICAID | END 2019-06-08 11:31 | disposition critical access hospital (66) | LOC: EMS 11:30 | PROVIDERS: ATTEND Surgery | DX: R45.89 Other symptoms and signs involving emotional state (principal) | CPT/HCPCS: A0425; A0429 ==

== ENCOUNTER 2019-06-08 11:49 | Emergency (ER) | payer MEDICARE, MEDICAID ==
--- NOTE | 2019-06-08 12:04 | ED Physician Documentation ---
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 She states that she does not feel actively suicidal, but does not want to wake up in the morning. She has also complained of a headache for the past 5 days. This is similar to her prior history of migraines. She states that this is worse with light and sounds. Took her Fioricet at home without relief. She states she is trying to get into see a psychiatrist at [facility]. Does not have a plan currently. Review of Systems Constitutional: denies: Fever, Chills Throat: denies: Sore throat Cardiac: denies: Chest pain / pressure, Palpitations Respiratory: denies: Cough GI: denies: Nausea, Vomiting, Diarrhea Skin: denies: Rash Musculoskeletal: denies: Neck pain, Back pain Neurologic: denies: Focal weakness, Numbness, Head injury, LOC PD PAST MEDICAL HISTORY - Past Medical History Cardiovascular: Hypertension, High cholesterol Respiratory: Asthma, COPD, Emphysema, Sleep apnea Neuro: Migraines Endocrine/Autoimmune: HyPOthyroidism, Systemic lupus erythematosus, Other GI: GERD, Ulcers, Colon polyps MANAGER CARDIAC CATH: None : Incontinence HEENT: None Psych: Depression, Panic attacks Musculoskeletal: Fibromyalgia, Fatigue, Chronic back pain Derm: None - Past Surgical History Past Surgical History: No General: Cholecystectomy, Colonoscopy /MANAGER CARDIAC CATH: Hysterectomy HEENT: Tonsil/Adenoidectomy - Present Medications Home Medications: Ambulatory Orders Medication Instructions Recorded Confirmed Albuterol Sulfate [Proair Hfa 2 puffs INH Q4H PRN 03/02/16 03/13/19 Inhaler] Dicyclomine HCl 10 mg PO QID 03/02/16 03/13/19 Pantoprazole Sodium 40 mg PO DAILY 03/02/16 03/13/19 Linaclotide [Linzess] 290 mcg ORAL DAILY 03/30/17 03/13/19 Ondansetron HCl [Zofran] 4 mg ORAL TID PRN 03/30/17 03/13/19 Oxybutynin Chloride [Ditropan Xl] 15 mg ORAL DAILY 03/30/17 03/13/19 Tiotropium [place] [Spiriva] 2 puffs INH DAILY 10/11/17 03/13/19 Atorvastatin Calcium 10 mg PO DAILY 02/10/18 03/13/19 Duloxetine HCl 30 mg PO DAILY 02/10/18 03/13/19 Eletriptan HBr 40 mg PO PRN PRN MDD 80MG/DAY 02/10/18 03/13/19 HYDROcodone/ACET 10/325 [[place] 10 0.5 - 1 tab PO Q6H PRN 02/10/18 03/13/19 mg/325 mg] Levothyroxine [Synthroid] 50 mcg PO QDAC #10 tablet 02/12/18 03/13/19 raNITIdine HCl [Ranitidine HCl] 150 mg PO BID 03/14/18 03/13/19 Ipratropium/Albuterol [Duoneb] 3 ml INH Q6H PRN #40 neb 03/15/18 03/13/19 Ondansetron Odt [Zofran] 4 mg TL Q6H PRN #15 tablet 08/11/18 03/13/19 Oxycodone HCl/Acetaminophen 1 - 2 each PO Q6H PRN #14 tablet 08/11/18 03/13/19 [Percocet 5-325 mg Tablet] - Allergies Allergies/Adverse Reactions: Allergies Allergy/AdvReac Type Severity Reaction Status Date / Time diazepam [From Valium] Allergy Unknown Verified 03/28/19 13:50 NSAIDS (Non-Steroidal Allergy Unknown Verified 03/28/19 13:50 Anti-Inflamma zolpidem [From Ambien] Allergy Unknown Verified 03/28/19 13:50 - Social History Does the pt smoke?: No Smoking Status: Never smoker Does the pt drink ETOH?: No Does the pt have substance abuse?: Yes - Immunizations Immunizations are current?: Yes - POLST Patient has POLST: No POLST Status: Full Code PD ED PE NORMAL - Vitals Vital signs reviewed: Yes - General General: Alert and oriented X 3, No acute distress, Well developed/nourished - HEENT HEENT: Atraumatic, PERRL, Ears normal, Moist mucous membranes, Pharynx benign - Neck Neck: Supple, no meningeal sign, No bony TTP - Cardiac Cardiac: RRR, Strong equal pulses - Respiratory Respiratory: No respiratory distress, Clear bilaterally - Abdomen Abdomen: Soft, Non tender, Non distended - Derm Derm: Warm and dry, No rash - Extremities Extremities: No edema - Neuro Neuro: Alert and oriented X 3, news photographer 2-12 intact, No motor deficit, No sensory deficit, Normal speech - Psych Psych: Normal mood, Normal affect Results - Vitals Vitals: Vital Signs - 24 hr 06/08/19 06/08/19 06/08/19 11:52 11:58 15:18 Temperature 37.3 C 97.4 C H Heart Rate 58 L 56 L 63 Respiratory 18 20 18 Rate Blood Pressure 147/87 H 147/87 H 165/99 H O2 Saturation 98 99 98 Oxygen O2 Source Nasal cannula Oxygen Flow Rate 2 - Labs Labs: Laboratory Tests 06/08/19 06/08/19 06/08/19 12:05 12:05 12:05 WBC 7.3 RBC 3.77 L Hgb 12.8 Hct 38.2 MCV 101.3 H MCH 34.0 H MCHC 33.5 RDW 12.9 Plt Count 233 MPV 9.7 Neut # (Auto) 3.7 Lymph # (Auto) 2.5 [place] # (Auto) 0.5 Eos # (Auto) 0.6 Baso # (Auto) 0.1 Absolute Nucleated RBC 0.00 Nucleated RBC % 0.0 Sodium 141 Potassium 4.1 Chloride 104 Carbon Dioxide 28 Anion Gap 9.0 BUN 16 Creatinine 0.6 Estimated GFR (MDRD) 103 Glucose 93 Calcium 9.2 Total Bilirubin < 0.2 L AST 32 ALT 40 Alkaline Phosphatase 129 H Total Protein 7.7 Albumin 3.8 Globulin 3.9 Albumin/Globulin Ratio 1.0 Lipase 20 L TSH 5.05 Urine Color Urine Clarity Urine pH Ur Specific [place] Urine Protein Urine Glucose (UA) Urine Ketones Urine Occult Blood Urine Nitrite Urine Bilirubin Urine Urobilinogen Ur Leukocyte Esterase Ur Microscopic Review Urine Culture Comments Salicylates < 6.0 Urine Opiates Screen Ur Oxycodone Screen Urine Methadone Screen Ur Propoxyphene Screen Acetaminophen < 10 L Ur Barbiturates Screen Ur Tricyclics Screen Ur Phencyclidine Scrn Ur Amphetamine Screen U Methamphetamines Scrn U Benzodiazepines Scrn Urine Cocaine Screen U Cannabinoids Screen Ethyl Alcohol 6.8 06/08/19 12:20 WBC RBC Hgb Hct MCV MCH MCHC RDW Plt Count MPV Neut # (Auto) Lymph # (Auto) [place] # (Auto) Eos # (Auto) Baso # (Auto) Absolute Nucleated RBC Nucleated RBC % Sodium Potassium Chloride Carbon Dioxide Anion Gap BUN Creatinine Estimated GFR (MDRD) Glucose Calcium Total Bilirubin AST ALT Alkaline Phosphatase Total Protein Albumin Globulin Albumin/Globulin Ratio Lipase TSH Urine Color YELLOW Urine Clarity CLEAR Urine pH 5.5 Ur Specific [place] 1.025 Urine Protein NEGATIVE Urine Glucose (UA) NEGATIVE Urine Ketones NEGATIVE Urine Occult Blood NEGATIVE Urine Nitrite NEGATIVE Urine Bilirubin NEGATIVE Urine Urobilinogen 0.2 (NORMAL) Ur Leukocyte Esterase NEGATIVE Ur Microscopic Review NOT INDICATED Urine Culture Comments NOT INDICATED Salicylates Urine Opiates Screen POSITIVE H Ur Oxycodone Screen NEGATIVE Urine Methadone Screen NEGATIVE Ur Propoxyphene Screen NEGATIVE Acetaminophen Ur Barbiturates Screen POSITIVE H Ur Tricyclics Screen NEGATIVE Ur Phencyclidine Scrn NEGATIVE Ur Amphetamine Screen NEGATIVE U Methamphetamines Scrn NEGATIVE U Benzodiazepines Scrn POSITIVE H Urine Cocaine Screen NEGATIVE U Cannabinoids Screen POSITIVE H Ethyl Alcohol PD MEDICAL DECISION MAKING - ED course Complexity details: reviewed results, re-evaluated patient, considered differential, d/w patient ED course: Note that the medications were ordered IM originally, but the nurse started an IV, therefore the medications were changed to IV. Headache improved in the emergency department and resolved. She spoke with social work and will follow-up as an outpatient with counseling. Denies SI at this time. No evidence of subarachnoid hemorrhage, tumor, mass. Patient counse led regarding signs and symptoms for which I believe and urgent re-evaluation would be necessary. Patient with good understanding of and agreement to plan and is comfortable going home at this time This document was made in part using voice recognition software. While efforts are made to proofread this document, sound alike and grammatical errors may occur. Departure - Departure Disposition: Home, Self Care Clinical Impression: Depression Qualifiers: Depression Type: unspecified Qualified Code(s): F32.9 - Major depressive disorder, single episode, unspecified Headache Qualifiers: Headache type: unspecified Headache chronicity pattern: acute headache Intractability: not intractable Qualified Code(s): R51 - Headache Condition: Good Instructions: ED Depression, ED Headache Migraine Follow-Up: Alexandra Montana PA-C [Primary Care Provider] - Within 1 week Comments: Follow-up with counseling as directed by social work today. Return if you worsen. Crisis Line and is available to talk to someone [email or web address] is also available to chat with someone online if you prefer. There are also many resources on this website and apps for your phone to help with your mental health You can also text the word START to [phone] to chat with someome via text. Discharge Date/Time: 06/08/19 15:50
[2019-06-08 12:10] LABS: BASOPHILS # (AUTO) 0.1 10^3/uL (0.0-0.1); BASOPHILS % (AUTO) 1.1 %; EOSINOPHILS # (AUTO) 0.6 10^3/uL (0.0-0.7); EOSINOPHILS % (AUTO) 8.6 %; HGB - HEMOGLOBIN 12.8 g/dL (12.0-16.0); LYMPHOCYTES # (AUTO) 2.5 10^3/uL (1.5-3.5); LYMPHOCYTES % (AUTO) 33.7 %; MEAN CORPUSCULAR HGB CONC 33.5 g/dL (32.0-36.0); MEAN CORPUSCULAR VOLUME 101.3 fL (81.0-99.0); MEAN PLATELET VOLUME 9.7 fL (7.9-10.8); MONOCYTES # (AUTO) 0.5 10^3/uL (0.0-1.0); MONOCYTES % (AUTO) 6.4 %; NEUTROPHILS # (AUTO) 3.7 10^3/uL (1.5-6.6); NEUTROPHILS % (AUTO) 50.1 %; PLT - PLATELET COUNT 233 10^3/uL (130-450); RED BLOOD COUNT 3.77 10^6/uL (4.20-5.40); RED CELL DISTRIBUTION WIDTH 12.9 % (12.0-15.0); WHITE BLOOD COUNT 7.3 x10^3/uL (4.8-10.8)
[2019-06-08] MEDS ORDERED: KETOROLAC 60 MG/2 ML VIAL IM STA (12:14)
[2019-06-08 12:23] LABS: MUDS CUTOFF CONCENTRATIONS CUTOFF CONC BELOW:
[2019-06-08 12:27] LABS: ACETAMINOPHEN < 10 ug/mL (10-30); ALBUMIN 3.8 g/dL (3.2-5.5); ALKALINE PHOSPHATASE 129 IU/L (42-121); ALT ALANINE AMINOTRANSFERASE 40 IU/L (10-60); AST ASPARTATE AMINOTRANSFERASE 32 IU/L (10-42); BILIRUBIN,TOTAL < 0.2 mg/dL (0.2-1.0); BUN - BLOOD UREA NITROGEN 16 mg/dL (6-20); CALCIUM 9.2 mg/dL (8.5-10.3); CARBON DIOXIDE - CO2 28 mmol/L (21-32); CHLORIDE 104 mmol/L (101-111); CREATININE 0.6 mg/dL (0.4-1.0); GFR - MDRD 103 (>89); GLUCOSE 93 mg/dL (70-100); LIPASE 20 U/L (22-51); SALICYLATE < 6.0 mg/dL; SODIUM 141 mmol/L (135-145); TOTAL PROTEIN 7.7 g/dL (6.7-8.2)
[2019-06-08 12:28] LABS: BILIRUBIN,URINE NEGATIVE (NEGATIVE); GLUCOSE, URINE (UA) NEGATIVE (NEGATIVE); KETONES,URINE (UA) NEGATIVE (NEGATIVE); LEUKOCYTE ESTERASE, URINE NEGATIVE (NEGATIVE); NITRITE,URINE NEGATIVE (NEGATIVE); OCCULT BLOOD,URINE NEGATIVE (NEGATIVE); PH,URINE 5.5 PH (5.0-7.5); PROTEIN,URINE NEGATIVE (NEGATIVE); UROBILINOGEN,URINE 0.2 (NORMAL) E.U./dL (NORMAL)
[2019-06-08 12:38] LABS: BENZODIAZEPINES SCREEN, URINE POSITIVE (NEGATIVE); OPIATE SCREEN, URINE POSITIVE (NEGATIVE)
[2019-06-08 12:39] LABS: AMPHETAMINE SCREEN,URINE NEGATIVE (NEGATIVE); CLARITY,URINE CLEAR (CLEAR); COCAINE SCREEN URINE NEGATIVE (NEGATIVE); METHADONE SCREEN, URINE NEGATIVE (NEGATIVE); METHAMPHETAMINES SCREEN, URINE NEGATIVE (NEGATIVE); OXYCODONE SCREEN, URINE NEGATIVE (NEGATIVE); PROPOXYPHENE SCREEN, URINE NEGATIVE (NEGATIVE); TRICYCLIC ANTIDEPRESSANT,URINE NEGATIVE (NEGATIVE)
[2019-06-08] MEDS: diphenhydrAMINE INJ 50 MG/ML VIAL IM STA ×2 (13:22→13:48)
[2019-06-08] MEDS: PROCHLORPERAZINE 10 MG/2 ML VIAL IM STA ×2 (13:23→13:48)
[2019-06-08] MEDS: ACETAMINOPHEN 325 MG TABLET PO STA ×2 (13:23→13:39)
[2019-06-08] MEDS ORDERED: ACETAMINOPHEN 325 MG TABLET PO STA (13:27)
[2019-06-08] MEDS ORDERED: diphenhydrAMINE INJ 50 MG/ML VIAL IVP STA (13:29)
[2019-06-08] MEDS ORDERED: PROMETHAZINE INJ 25 MG in SODIUM CHLORIDE 0.9% 50 ML IV STA (13:29)
[2019-06-08] MEDS ORDERED: PROCHLORPERAZINE 10 MG/2 ML VIAL IVP STA (13:30)
[2019-06-08] MEDS ORDERED: BENZTROPINE 2 MG/2 ML VIAL IVP STA (15:15)
[2019-06-08 15:21] VITALS: BP 165/99
== END 2019-06-08 15:50 | disposition home or self-care (01) ==
LOC: EDUNIT# → ED 11:49
DX: F32.9 Major depressive disorder, single episode, unspecified (principal); R51 Headache; I10 Essential (primary) hypertension; M32.9 Systemic lupus erythematosus, unspecified
CPT/HCPCS: 36415; 81003; 83690; 96365; 96366; 96375; 99284; A9270; J0515; J1200; J7040; 80053; 80306; 80307; 80320; 80329; 81001; 84443; 85025; 87086

== ENCOUNTER 2019-06-26 08:00 | Outpatient (CLI) | payer MEDICARE, MEDICAID ==
[2019-06-26 12:23] LABS: MUDS CUTOFF CONCENTRATIONS CUTOFF CONC BELOW:
[2019-06-26 19:07] LABS: AMPHETAMINE SCREEN,URINE NEGATIVE (NEGATIVE); BENZODIAZEPINES SCREEN, URINE NEGATIVE (NEGATIVE); COCAINE SCREEN URINE NEGATIVE (NEGATIVE); METHADONE SCREEN, URINE NEGATIVE (NEGATIVE); METHAMPHETAMINES SCREEN, URINE NEGATIVE (NEGATIVE); OPIATE SCREEN, URINE NEGATIVE (NEGATIVE); OXYCODONE SCREEN, URINE NEGATIVE (NEGATIVE); PROPOXYPHENE SCREEN, URINE NEGATIVE (NEGATIVE); TRICYCLIC ANTIDEPRESSANT,URINE NEGATIVE (NEGATIVE)
== END 2019-06-26 23:59 | disposition home or self-care (01) ==
LOC: LAB.WCP 08:00
PROVIDERS: ATTEND Physician Assistant Medical
DX: M54.5 Low back pain (principal); Z79.891 Long term (current) use of opiate analgesic
CPT/HCPCS: 80306

== ENCOUNTER → 2019-08-26 | Outpatient (CLI) | payer MEDICARE, MEDICAID | LOC: LAB.WCP 09:00 | PROVIDERS: ATTEND Physician Assistant Medical | DX: Z79.891 Long term (current) use of opiate analgesic (principal) | CPT/HCPCS: 80324; 80345; 80361; 80365; 81599 ==

== ENCOUNTER 2020-01-11 08:00 | Outpatient (CLI) | payer MEDICARE, MEDICAID ==
[2020-01-11 12:18] LABS: ALBUMIN 3.8 g/dL (3.2-5.5); ALKALINE PHOSPHATASE 135 IU/L (42-121); ALT ALANINE AMINOTRANSFERASE 17 IU/L (10-60); AST ASPARTATE AMINOTRANSFERASE 19 IU/L (10-42); BILIRUBIN,TOTAL 0.2 mg/dL (0.2-1.0); BUN - BLOOD UREA NITROGEN 13 mg/dL (6-20); CALCIUM 8.7 mg/dL (8.5-10.3); CARBON DIOXIDE - CO2 28 mmol/L (21-32); CHLORIDE 103 mmol/L (101-111); CHOL/HDL RATIO 5.3 (<4.4); CHOLESTEROL 291 mg/dL; CREATININE 0.8 mg/dL (0.4-1.0); GLUCOSE 96 mg/dL (70-100); HDL CHOLESTEROL 55 mg/dL; LDL CHOLESTEROL,CALCULATED 211 mg/dL; LDL/HDL RATIO 3.8 (<4.4); SODIUM 135 mmol/L (135-145); TOTAL PROTEIN 7.8 g/dL (6.7-8.2); VLDL CHOLESTEROL 25 mg/dL
[2020-01-11 13:35] LABS: HEMOGLOBIN A1C 0.49 g/dL; HEMOGLOBIN A1C % 5.6 % (4.6-6.2)
[2020-01-11 13:40] LABS: FREE T4 (FREE THYROXINE) 0.32 ng/dL (0.58-1.64)
== END 2020-01-11 08:01 | disposition home or self-care (01) ==
LOC: LAB.WCP 08:00
PROVIDERS: ATTEND Physician Assistant Medical
DX: E78.5 Hyperlipidemia, unspecified (principal); R73.03 Prediabetes
CPT/HCPCS: 36415; 80053; 80061; 83036; 83721; 84439; 84443

== ENCOUNTER 2020-12-29 08:00 | Outpatient (CLI) | payer MEDICAID, MEDICARE ==
[2020-12-29 12:04] LABS: ALBUMIN 3.8 g/dL (3.2-5.5); ALKALINE PHOSPHATASE 134 IU/L (42-121); ALT ALANINE AMINOTRANSFERASE 23 IU/L (10-60); AST ASPARTATE AMINOTRANSFERASE 18 IU/L (10-42); BILIRUBIN,TOTAL 0.3 mg/dL (0.2-1.0); BUN - BLOOD UREA NITROGEN 13 mg/dL (6-20); CALCIUM 8.9 mg/dL (8.5-10.3); CARBON DIOXIDE - CO2 30 mmol/L (21-32); CHLORIDE 100 mmol/L (101-111); CHOL/HDL RATIO 5.1 (<4.4); CHOLESTEROL 240 mg/dL; CREATININE 0.9 mg/dL (0.4-1.0); GFR - MDRD 64 (>89); GLUCOSE 98 mg/dL (70-100); HDL CHOLESTEROL 47 mg/dL; LDL CHOLESTEROL,CALCULATED 167 mg/dL; LDL/HDL RATIO 3.6 (<4.4); POTASSIUM 4.1 mmol/L (3.5-5.0); SODIUM 136 mmol/L (135-145); TOTAL PROTEIN 7.5 g/dL (6.7-8.2); TRIGLYCERIDES 128 mg/dL; VLDL CHOLESTEROL 26 mg/dL
[2020-12-29 12:08] LABS: BASOPHILS # (AUTO) 0.1 10^3/uL (0.0-0.1); EOSINOPHILS # (AUTO) 0.7 10^3/uL (0.0-0.7); EOSINOPHILS % (AUTO) 9.3 %; HCT - HEMATOCRIT 35.8 % (37.0-47.0); HGB - HEMOGLOBIN 11.5 g/dL (12.0-16.0); LYMPHOCYTES # (AUTO) 2.2 10^3/uL (1.5-3.5); LYMPHOCYTES % (AUTO) 31.2 %; MEAN CORPUSCULAR HEMOGLOBIN 34.1 pg (27.0-31.0); MEAN CORPUSCULAR HGB CONC 32.1 g/dL (32.0-36.0); MEAN CORPUSCULAR VOLUME 106.2 fL (81.0-99.0); MONOCYTES # (AUTO) 0.5 10^3/uL (0.0-1.0); MONOCYTES % (AUTO) 7.2 %; NEUTROPHILS # (AUTO) 3.7 10^3/uL (1.5-6.6); NEUTROPHILS % (AUTO) 51.2 %; PLT - PLATELET COUNT 219 10^3/uL (130-450); RED BLOOD COUNT 3.37 10^6/uL (4.20-5.40); RED CELL DISTRIBUTION WIDTH 12.4 % (12.0-15.0); WHITE BLOOD COUNT 7.2 x10^3/uL (4.8-10.8)
[2020-12-29 12:15] LABS: THYROID STIMULATING HORMONE 4.64 uIU/mL (0.34-5.60)
[2020-12-29 12:22] LABS: FERRITIN 27.1 ng/mL (11.0-306.8)
[2020-12-29 12:56] LABS: ESTIMATED AVERAGE GLUCOSE 105 mg/dL (70-100); HEMOGLOBIN A1c% 5.3 % (4.27-6.07)
--- OUTSIDE RECORDS SUMMARY | 2021-01-04 02:19 | EXTERNAL MEDICAL SUMMARY RPT | Continuity of Care Document ---
: Demographics Phone Unavailable Preferred Language Unknown Marital Status Unknown Yarsanism Affiliation Unknown Race Unknown Ethnic Group Unknown Author Organization [facility] Address [address] [place] [address] Phone Medications date description facility [id number] Fluoxetine 40 MG Oral Capsule [facility] [id number] aripiprazole 10 MG Oral Tablet [facility] [id number] Trazodone Hydrochloride 100 MG Oral Tab [facility] [id number] atorvastatin 10 MG Oral Tablet [facility] Social History date description facility [id number]
== END 2020-12-29 23:59 | disposition home or self-care (01) ==
LOC: LAB.WCP 08:00
PROVIDERS: ATTEND Physician Assistant Medical
DX: E78.5 Hyperlipidemia, unspecified (principal); D50.9 Iron deficiency anemia, unspecified; R73.03 Prediabetes
CPT/HCPCS: 36415; 80053; 80061; 82607; 82728; 83036; 83721; 84443; 85025

== ENCOUNTER 2021-05-01 08:00 | Outpatient (CLI) | payer MEDICARE, MEDICAID ==
[2021-05-01 18:05] LABS: BASOPHILS # (AUTO) 0.1 10^3/uL (0.0-0.1); BASOPHILS % (AUTO) 1.4 %; EOSINOPHILS # (AUTO) 0.5 10^3/uL (0.0-0.7); EOSINOPHILS % (AUTO) 7.4 %; HCT - HEMATOCRIT 39.4 % (37.0-47.0); HGB - HEMOGLOBIN 12.5 g/dL (12.0-16.0); LYMPHOCYTES # (AUTO) 2.3 10^3/uL (1.5-3.5); LYMPHOCYTES % (AUTO) 35.6 %; MEAN CORPUSCULAR HEMOGLOBIN 33.4 pg (27.0-31.0); MEAN CORPUSCULAR HGB CONC 31.7 g/dL (32.0-36.0); MEAN CORPUSCULAR VOLUME 105.3 fL (81.0-99.0); MEAN PLATELET VOLUME 11.3 fL (7.9-10.8); MONOCYTES # (AUTO) 0.3 10^3/uL (0.0-1.0); MONOCYTES % (AUTO) 5.2 %; NEUTROPHILS # (AUTO) 3.3 10^3/uL (1.5-6.6); NEUTROPHILS % (AUTO) 50.2 %; PLT - PLATELET COUNT 159 10^3/uL (130-450); RED BLOOD COUNT 3.74 10^6/uL (4.20-5.40); WHITE BLOOD COUNT 6.5 x10^3/uL (4.8-10.8)
[2021-05-01 18:42] LABS: ALBUMIN/GLOBULIN RATIO 1.1 (1.0-2.2); ALKALINE PHOSPHATASE 127 IU/L (42-121); ALT ALANINE AMINOTRANSFERASE 13 IU/L (10-60); AST ASPARTATE AMINOTRANSFERASE 17 IU/L (10-42); BILIRUBIN,TOTAL 0.5 mg/dL (0.2-1.0); BUN - BLOOD UREA NITROGEN 8 mg/dL (6-20); CALCIUM 9.1 mg/dL (8.5-10.3); CARBON DIOXIDE - CO2 32 mmol/L (21-32); CHLORIDE 102 mmol/L (101-111); CHOL/HDL RATIO 5.3 (<4.4); CHOLESTEROL 245 mg/dL; CREATININE 0.8 mg/dL (0.4-1.0); GFR - MDRD 73 (>89); GLUCOSE 86 mg/dL (70-100); HDL CHOLESTEROL 46 mg/dL; LDL CHOLESTEROL,CALCULATED 167 mg/dL; LDL/HDL RATIO 3.6 (<4.4); POTASSIUM 3.9 mmol/L (3.5-5.0); SODIUM 142 mmol/L (135-145); TOTAL PROTEIN 7.6 g/dL (6.7-8.2); TRIGLYCERIDES 162 mg/dL; VLDL CHOLESTEROL 32 mg/dL
== END 2021-05-01 23:59 | disposition home or self-care (01) ==
LOC: LAB.WCP 08:00
PROVIDERS: ATTEND Physician Assistant Medical
DX: E78.5 Hyperlipidemia, unspecified (principal); E53.8 Deficiency of other specified B group vitamins; R51.9 Headache, unspecified
CPT/HCPCS: 36415; 80053; 80061; 82607; 83721; 85025

== ENCOUNTER 2021-07-26 09:00 | Outpatient (CLI) | payer MEDICARE, MEDICAID | END 2021-07-26 23:59 | disposition home or self-care (01) | LOC: LAB.WCP 09:00 | PROVIDERS: ATTEND Physician Assistant Medical | DX: J44.9 Chronic obstructive pulmonary disease, unspecified (principal); Z20.822 Contact with and (suspected) exposure to COVID-19 ==

== ENCOUNTER 2021-08-27 09:58 | Outpatient (CLI) | payer MEDICARE, MEDICAID | END 2021-08-27 09:59 | disposition critical access hospital (66) | LOC: EMS 09:58 | DX: R56.9 Unspecified convulsions (principal) | CPT/HCPCS: A0425; A0427 ==

== ENCOUNTER 2021-08-27 10:17 | Observation (INO) | payer MEDICARE, MEDICAID ==
--- NOTE | 2021-08-27 10:38 | ED Physician Documentation ---
PD HPI SEIZURE - Stated complaint Stated Complaint: SEIZURE - Chief complaint Chief Complaint: Neuro - History obtained from History obtained from: Patient, Family, EMS - History of Present Illness Timing - onset: Today Witnessed: Witnessed Number of seizures: Single. No: Still seizing Description of seizure activity: Generalized Injury during seizure: None Associated symptoms: No: Headache, Chest pain, Nausea / vomiting History of seizures: First seizure. No: Known seizure disorder Contributing factors: No: Substance abuse (cannibis only. Denies regular benzos nor alcohol. Denies recent med changes.), EtOH withdrawal, Overdose Treatment BLOCK SEALER: No: Dextrose, Ativan Similar symptoms before: Has not had sx before Recently seen: Not recently seen Review of Systems Constitutional: denies: Fever Nose: denies: Rhinorrhea / runny nose, Congestion Throat: denies: Sore throat Respiratory: denies: Cough PD PAST MEDICAL HISTORY - Past Medical History Cardiovascular: Hypertension, High cholesterol Respiratory: Asthma, COPD, Emphysema, Sleep apnea Neuro: Migraines Endocrine/Autoimmune: HyPOthyroidism, Systemic lupus erythematosus, Other GI: GERD, Ulcers, Colon polyps VENTILATED RIB FITTER: None : Incontinence HEENT: None Psych: Depression, Panic attacks Musculoskeletal: Fibromyalgia, Fatigue, Chronic back pain Derm: None - Past Surgical History Past Surgical History: No General: Cholecystectomy, Colonoscopy /VENTILATED RIB FITTER: Hysterectomy HEENT: Tonsil/Adenoidectomy - Present Medications Home Medications: Ambulatory Orders Medication Instructions Recorded Confirmed Albuterol Sulfate [Proair Hfa 2 puffs INH Q4H PRN 03/02/16 08/27/21 Inhaler] Oxybutynin Chloride [Ditropan Xl] 15 mg ORAL DAILY 03/30/17 12/21/19 Atorvastatin Calcium 10 mg PO QPM 02/10/18 08/27/21 ARIPiprazole [Aripiprazole] 10 mg PO DAILY 08/27/21 08/27/21 Butalb/Acetaminophen/Caffeine 1 - 2 each PO Q6H PRN 08/27/21 08/27/21 [Fioricet 50-300-40 mg Capsule] Candesartan Cilexetil [Atacand] 2 mg PO BID 08/27/21 08/27/21 Cyanocobalamin [Vitamin B-12] 1,000 mcg IM Q21D 08/27/21 08/27/21 Fluoxetine HCl [Prozac] 80 mg PO DAILY 08/27/21 08/27/21 Levothyroxine [Synthroid] 125 mcg PO QDAC 08/27/21 08/27/21 Mirtazapine 15 - 30 mg PO QPM PRN 08/27/21 08/27/21 Naratriptan HCl [Amerge] 2.5 mg PO ONCE PRN 08/27/21 08/27/21 Omeprazole Magnesium 20 mg PO DAILY 08/27/21 08/27/21 Solifenacin Succinate [Vesicare] 10 mg PO DAILY 08/27/21 Tizanidine HCl 1 - 2 mg PO Q8H PRN 08/27/21 08/27/21 ondansetron HCL [Ondansetron HCl] 8 mg PO Q6H PRN 08/27/21 08/27/21 - Allergies Allergies/Adverse Reactions: Allergies Allergy/AdvReac Type Severity Reaction Status Date / Time diazepam [From Valium] Allergy Unknown Verified 08/27/21 10:32 NSAIDS (Non-Steroidal Allergy Unknown Verified 08/27/21 10:32 Anti-Inflamma zolpidem [From Ambien] Allergy Unknown Verified 08/27/21 10:32 - Social History Does the pt smoke?: No Smoking Status: Former smoker Does the pt drink ETOH?: No Does the pt have substance abuse?: Yes - Immunizations Immunizations are current?: Yes - POLST Patient has POLST: No POLST Status: Full Code PD ED PE NORMAL - Vitals Vital signs reviewed: Yes - General General: No acute distress, Well developed/nourished. No: Alert and oriented X 3 (To the ER with spontaneous eye opening and seems a bit sleepy still but within a few minutes is awake and alert.) - HEENT HEENT: Atraumatic, Pharynx benign. No: Moist mucous membranes - Neck Neck: Supple, no meningeal sign, No adenopathy - Cardiac Cardiac: RRR, No murmur - Respiratory Respiratory: Clear bilaterally, Other (no chestwall tenderness.) - Abdomen Abdomen: Soft, Non tender - Back Back: No CVA TTP, No spinal TTP - Derm Derm: Normal color, Warm and dry - Extremities Extremities: Normal ROM s pain, No edema, No calf tenderness / cord - Neuro Neuro: Alert and oriented X 3, shift lab technician 2-12 intact, No motor deficit, No sensory deficit, Normal speech Eye Opening: Spontaneous Motor: Obeys Commands Verbal: Oriented GCS Score: 15 Results - Vitals Vitals: Vital Signs - 24 hr 08/27/21 08/27/21 08/27/21 10:17 10:39 11:07 Temperature 37.5 C Heart Rate 75 83 85 Respiratory 22 17 23 Rate Blood Pressure 140/84 H 174/88 H 147/91 H O2 Saturation 92 93 91 L 08/27/21 08/27/21 11:58 12:23 Temperature Heart Rate 91 86 Respiratory 22 17 Rate Blood Pressure 147/91 H 134/84 H O2 Saturation 91 L 95 Oxygen O2 Source Nasal cannula Oxygen Flow Rate 2 - Labs Labs: Laboratory Tests 08/27/21 08/27/21 08/27/21 11:17 11:25 11:25 WBC 8.4 RBC 3.65 L Hgb 12.2 Hct 37.3 MCV 102.2 H MCH 33.4 H MCHC 32.7 RDW 12.3 Plt Count 260 MPV 9.5 Neut # (Auto) 6.5 Lymph # (Auto) 1.3 L [place] # (Auto) 0.4 Eos # (Auto) 0.2 Baso # (Auto) 0.1 Absolute Nucleated RBC 0.00 Nucleated RBC % 0.0 ESR Sodium 139 Potassium 3.6 Chloride 101 Carbon Dioxide 27 Anion Gap 11.0 BUN 10 Creatinine 0.7 Estimated GFR (MDRD) 85 L Glucose 143 H Calcium 8.9 Magnesium 2.0 Total Bilirubin 0.6 AST 17 ALT 13 Alkaline Phosphatase 110 Total Protein 8.0 Albumin 3.3 Globulin 4.7 H Albumin/Globulin Ratio 0.7 L Lipase 16 L TSH Urine Color Urine Clarity Urine pH Ur Specific [place] Urine Protein Urine Glucose (UA) Urine Ketones Urine Occult Blood Urine Nitrite Urine Bilirubin Urine Urobilinogen Ur Leukocyte Esterase Ur Microscopic Review Urine Culture Comments Nasal Adenovirus (PCR) NOT DETECTED Nasal B. parapertussis DNA (PCR) NOT DETECTED Nasal Coronavir 229E PCR NOT DETECTED Nasal Coronavir HKU1 PCR NOT DETECTED Nasal Coronavir NL63 PCR NOT DETECTED Nasal Coronavir OC43 PCR NOT DETECTED Nasal Enterovir/Rhinovir PCR NOT DETECTED Nasal Influenza B PCR NOT DETECTED Nasal Influenza A PCR NOT DETECTED Nasal Parainfluen 1 PCR NOT DETECTED Nasal Parainfluen 2 PCR NOT DETECTED Nasal Parainfluen 3 PCR NOT DETECTED Nasal Parainfluen 4 PCR NOT DETECTED Nasal RSV (PCR) NOT DETECTED Nasal B.pertussis DNA PCR NOT DETECTED Nasal C.pneumoniae (PCR) NOT DETECTED Delbert Human Metapneumo PCR NOT DETECTED Nasal M.pneumoniae (PCR) NOT DETECTED Nasal SARS-CoV-2 (PCR) NOT DETECTED Salicylates < 6.0 Urine Opiates Screen Ur Oxycodone Screen Urine Methadone Screen Ur Propoxyphene Screen Acetaminophen < 10 L Ur Barbiturates Screen Ur Tricyclics Screen Ur Phencyclidine Scrn Ur Amphetamine Screen U Methamphetamines Scrn U Benzodiazepines Scrn Urine Cocaine Screen U Cannabinoids Screen Ethyl Alcohol < 5.0 08/27/21 08/27/21 08/27/21 11:25 11:25 11:51 WBC RBC Hgb Hct MCV MCH MCHC RDW Plt Count MPV Neut # (Auto) Lymph # (Auto) [place] # (Auto) Eos # (Auto) Baso # (Auto) Absolute Nucleated RBC Nucleated RBC % ESR 78 H Sodium Potassium Chloride Carbon Dioxide Anion Gap BUN Creatinine Estimated GFR (MDRD) Glucose Calcium Magnesium Total Bilirubin AST ALT Alkaline Phosphatase Total Protein Albumin Globulin Albumin/Globulin Ratio Lipase TSH 0.65 Urine Color YELLOW Urine Clarity CLEAR Urine pH 6.5 Ur Specific [place] 1.025 Urine Protein NEGATIVE Urine Glucose (UA) NEGATIVE Urine Ketones NEGATIVE Urine Occult Blood TRACE-INTA Urine Nitrite NEGATIVE Urine Bilirubin NEGATIVE Urine Urobilinogen 0.2 (NORMAL) Ur Leukocyte Esterase NEGATIVE Ur Microscopic Review NOT INDICATED Urine Culture Comments NOT INDICATED Nasal Adenovirus (PCR) Nasal B. parapertussis DNA (PCR) Nasal Coronavir 229E PCR Nasal Coronavir HKU1 PCR Nasal Coronavir NL63 PCR Nasal Coronavir OC43 PCR Nasal Enterovir/Rhinovir PCR Nasal Influenza B PCR Nasal Influenza A PCR Nasal Parainfluen 1 PCR Nasal Parainfluen 2 PCR Nasal Parainfluen 3 PCR Nasal Parainfluen 4 PCR Nasal RSV (PCR) Nasal B.pertussis DNA PCR Nasal C.pneumoniae (PCR) Delbert Human Metapneumo PCR Nasal M.pneumoniae (PCR) Nasal SARS-CoV-2 (PCR) Salicylates Urine Opiates Screen NEGATIVE Ur Oxycodone Screen NEGATIVE Urine Methadone Screen NEGATIVE Ur Propoxyphene Screen NEGATIVE Acetaminophen Ur Barbiturates Screen NEGATIVE Ur Tricyclics Screen NEGATIVE Ur Phencyclidine Scrn NEGATIVE Ur Amphetamine Screen NEGATIVE U Methamphetamines Scrn NEGATIVE U Benzodiazepines Scrn POSITIVE H Urine Cocaine Screen NEGATIVE U Cannabinoids Screen POSITIVE H Ethyl Alcohol - Rads (name of study) chest xray Radiology: Prelim report reviewed (Interstitial prominence consistent with vascular congestion.), See rad report head CT Radiology: Prelim report reviewed (No acute intracranial process.), See rad report PD MEDICAL DECISION MAKING - ED course Complexity details: reviewed results, re-evaluated patient (Alert conversant at this time. Denies any pains right now.), considered differential (Unclear cause of the seizure. She had recovered and conversant here in the ER. She had a second generalized seizure lasting less than 1 minute here. No obvious metabolic cause or medication related by history. Consideration was med change or alcohol related but she denies these.), d/w patient ED course: In the ER, the patient has abrupt onset of generalized seizure lasting just under a minute with spontaneous resolution. She maintained heart rate and oxygenation. She was positioned on her side during the seizure in care was given to watch for clearing of airway. Given a second seizure now over just an hour, I felt it reasonable to give a small dose of lorazepam preventatively. She did not need a large dose to reduce seizure and per se. I did give a 500 mg Keppra IV. During the remainder of the ER stay, she did not have any further seizures. She did rouse to fully alert and conversant. Departure - Departure Disposition: ED Place in Observation Clinical Impression: New onset seizure Condition: Stable Record reviewed to determine appropriate education?: Yes Discharge Date/Time: 08/27/21 13:55
[2021-08-27] MEDS ORDERED: SODIUM CHLORIDE 0.9% 1,000 ML IV STA (10:39)
[2021-08-27] MEDS ORDERED: LORazepam 2 MG/ML VIAL IVP STA (10:39)
[2021-08-27] MEDS ORDERED: LORazepam 2 MG/ML VIAL ONE (10:48)
--- NOTE | 2021-08-27 11:27 | CT Report ---
PROCEDURE: HEAD WO INDICATIONS: seizure new onset today TECHNIQUE: Noncontrast 4.5 mm thick angled axial sections acquired from the foramen magnum to the vertex. For r adiation dose reduction, the following was used: automated exposure control, adjustment of mA and/or kV according to patient size. COMPARISON: None. FINDINGS: Image quality: Excellent. CSF spaces: Basal cisterns are patent. No extra-axial fluid collections. Ventricles are normal in size and shape. Brain: No midline shift. No intracranial masses or hemorrhage. Márquez-white matter interface is norm al. Skull and face: Calvarium and visualized facial bones are intact, without suspicious lesions. Sinuses: Bilateral maxillary mucous retention cyst or polyps. There is also minimal bilateral ethmoid air cell mucosal thickening.. IMPRESSION: No acute intracranial abnormality. Reviewed by: Santos Green MD on 08/27/2021 11:26 AM [facility] Approved by: Santos Green MD on 08/27/2021 11:26 AM [facility] Station ID: [id number]
[2021-08-27 11:30] LABS: BASOPHILS # (AUTO) 0.1 10^3/uL (0.0-0.1); EOSINOPHILS # (AUTO) 0.2 10^3/uL (0.0-0.7); HCT - HEMATOCRIT 37.3 % (37.0-47.0); HGB - HEMOGLOBIN 12.2 g/dL (12.0-16.0); LYMPHOCYTES # (AUTO) 1.3 10^3/uL (1.5-3.5); LYMPHOCYTES % (AUTO) 15.1 %; MEAN CORPUSCULAR HEMOGLOBIN 33.4 pg (27.0-31.0); MEAN CORPUSCULAR HGB CONC 32.7 g/dL (32.0-36.0); MEAN CORPUSCULAR VOLUME 102.2 fL (81.0-99.0); MEAN PLATELET VOLUME 9.5 fL (7.9-10.8); MONOCYTES # (AUTO) 0.4 10^3/uL (0.0-1.0); MONOCYTES % (AUTO) 4.9 %; NEUTROPHILS # (AUTO) 6.5 10^3/uL (1.5-6.6); NEUTROPHILS % (AUTO) 76.6 %; PLT - PLATELET COUNT 260 10^3/uL (130-450); RED BLOOD COUNT 3.65 10^6/uL (4.20-5.40); RED CELL DISTRIBUTION WIDTH 12.3 % (12.0-15.0); WHITE BLOOD COUNT 8.4 x10^3/uL (4.8-10.8)
[2021-08-27] MEDS ORDERED: levETIRAcetam INJ 500 MG in SODIUM CHLORIDE 0.9% 100ML 100 ML IV STA (11:32)
--- NOTE | 2021-08-27 11:41 | XRAY Report ---
PROCEDURE: Chest 1 View X-Ray INDICATIONS: congestion TECHNIQUE: One view of the chest was acquired. COMPARISON: 03/19/2019, 08/13/2018 FINDINGS: Surgical changes and devices: None. Lungs and pleura: On the semiupright images, no large pneumothorax or large pleural effusions can be seen. Minimal generalized interstitial prominence can be seen, without focal infiltrates. Mediastinum: Mediastinal contours appear normal. Heart size is normal. Bones and chest wall: No suspicious bony lesions. Age-appropriate degenerative changes are seen. Overlying soft tissues appear unremarkable. IMPRESSION: Minimal generalized interstitial prominence can be seen, which may be related to minimal pulmonary ed victoriano. Reviewed by: Kieran Morgan MD on 08/27/2021 10:40 AM [facility] Approved by: Kieran Morgan MD on 08/27/2021 10:40 AM [facility] Station ID: [id number]
[2021-08-27 11:48] LABS: ACETAMINOPHEN < 10 ug/mL (10-30); ALBUMIN 3.3 g/dL (3.2-5.5); ALBUMIN/GLOBULIN RATIO 0.7 (1.0-2.2); ALKALINE PHOSPHATASE 110 IU/L (42-121); ALT ALANINE AMINOTRANSFERASE 13 IU/L (10-60); AST ASPARTATE AMINOTRANSFERASE 17 IU/L (10-42); BILIRUBIN,TOTAL 0.6 mg/dL (0.2-1.0); BUN - BLOOD UREA NITROGEN 10 mg/dL (6-20); CALCIUM 8.9 mg/dL (8.5-10.3); CARBON DIOXIDE - CO2 27 mmol/L (21-32); CHLORIDE 101 mmol/L (101-111); CREATININE 0.7 mg/dL (0.4-1.0); ETOH - ETHANOL < 5.0 mg/dL; GFR - MDRD 85 (>89); GLUCOSE 143 mg/dL (70-100); LIPASE 16 U/L (22-51); POTASSIUM 3.6 mmol/L (3.5-5.0); SALICYLATE < 6.0 mg/dL; SODIUM 139 mmol/L (135-145)
[2021-08-27 11:56] LABS: MUDS CUTOFF CONCENTRATIONS CUTOFF CONC BELOW:
[2021-08-27 11:58] LABS: BILIRUBIN,URINE NEGATIVE (NEGATIVE); GLUCOSE, URINE (UA) NEGATIVE (NEGATIVE); KETONES,URINE (UA) NEGATIVE (NEGATIVE); LEUKOCYTE ESTERASE, URINE NEGATIVE (NEGATIVE); NITRITE,URINE NEGATIVE (NEGATIVE); OCCULT BLOOD,URINE TRACE-INTA (NEGATIVE); PH,URINE 6.5 PH (5.0-7.5); PROTEIN,URINE NEGATIVE (NEGATIVE); UROBILINOGEN,URINE 0.2 (NORMAL) E.U./dL (NORMAL)
[2021-08-27 11:59] LABS: CLARITY,URINE CLEAR (CLEAR)
[2021-08-27 12:12] LABS: AMPHETAMINE SCREEN,URINE NEGATIVE (NEGATIVE); BARBITURATE SCREEN,UR NEGATIVE (NEGATIVE); BENZODIAZEPINES SCREEN, URINE POSITIVE (NEGATIVE); COCAINE SCREEN URINE NEGATIVE (NEGATIVE); METHADONE SCREEN, URINE NEGATIVE (NEGATIVE); METHAMPHETAMINES SCREEN, URINE NEGATIVE (NEGATIVE); OPIATE SCREEN, URINE NEGATIVE (NEGATIVE); OXYCODONE SCREEN, URINE NEGATIVE (NEGATIVE); PROPOXYPHENE SCREEN, URINE NEGATIVE (NEGATIVE); THC CANNABINOID SCREEN, URINE POSITIVE (NEGATIVE); TRICYCLIC ANTIDEPRESSANT,URINE NEGATIVE (NEGATIVE)
[2021-08-27 12:27] LABS: B. PARAPERTUSSIS- RESP PCR PAN NOT DETECTED; B. PERTUSSIS- RESP PCR PANEL NOT DETECTED; C. PNEUMONIAE- RESP PCR PANEL NOT DETECTED; CORONAVIRUS 229E-RESP PCR NOT DETECTED; CORONAVIRUS HKU1-RESP PCR NOT DETECTED; CORONAVIRUS NL63-RESP PCR NOT DETECTED; CORONAVIRUS OC43-RESP PCR NOT DETECTED; HUMAN METAPNEUMOVIRUS NOT DETECTED; INFLUENZA A- RESP PCR PANEL NOT DETECTED; INFLUENZA B - RESP PCR PANEL NOT DETECTED; M. PNEUMONIAE- RESP PCR PANEL NOT DETECTED; PARAINFLUENZA VIRUS 1 NOT DETECTED; PARAINFLUENZA VIRUS 2 NOT DETECTED; PARAINFLUENZA VIRUS 3 NOT DETECTED; PARAINFLUENZA VIRUS 4 NOT DETECTED; RHINOVIRUS/ENTEROVIRUS NOT DETECTED; RSV- RESP PCR PANEL NOT DETECTED; SARS-CoV-2 -RESP PCR PANEL NOT DETECTED
[2021-08-27] MEDS ORDERED: SODIUM CHLORIDE FLUSH 0.9% 10 ML SYRINGE IVP PRN (12:57)
--- NOTE | 2021-08-27 13:48 | HISTORY & PHYSICAL EXAMINATION ---
Chief Complaint - Chief Complaint Chief Complaint: new onset seizures History of Present Illness - Admitted From Admitted From:: Home - History Obtained From Records Reviewed: [employer] History obtained from: Patient and [employer] Exam Limitations: None - History of Present Illness HPI Comment/Other: Pt presented to the ED today with a new onset seizure. She has an extensive past medical history, including hypothyroidism, migraines, HTN, and chronic pain. She reports she first had a seizure this morning, witnessed by her son and boyfriend but not sure how long it lasted. Denies LOC but did fall and hit her head as a sequela of the seizure. Denies seeing an aura, feeling dizzy or light-headed, or headache/migraine prior to seizure onset. Does report she felt "jittery" before and after the seizure. No incontinence. Her family called EMS and she was sent for evaluation and noted to have another seizure, witnessed in the ED and lasting approximately 1 minute. Post-ictal state resolved fairly quickly, she is now just tired and continues to feel jittery. Has no other associated symptoms. Head CT was normal. No electrolyte abnormalities. TSH was normal in the ED. No recent medication changes per patient. She denies recent use of alcohol ("it's been a few years"). It is unclear what is driving these seizures currently. She was admitted for observation status, will obtain an MRI tomorrow and start her on Keppra. After discussion with Pt she is a full code. 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 COMMODITIES INSPECTOR: reports: None : reports: Incontinence HEENT: reports: None Psych: reports: Depression, Panic attacks Musculoskeletal: reports: Fibromyalgia, Fatigue, Chronic back pain Derm: reports: None MRSA Hx?: Yes - Past Surgical History General: reports: Cholecystectomy, Colonoscopy /AGRICULTURAL COMMODITIES INSPECTOR: reports: Hysterectomy HEENT: reports: Tonsil/Adenoidectomy - Family & Social History Family History: Mother: , Blood Disease/Disorder, Cancer, Father: , COPD/Emphysema, CVA/TIA Family History Comment/Other: Pt is adopted but reports her biological mother is alive and healthy. Also reports a biologic brother had a history of seizures before dying in a motorcycle crash. She does not know the etiology or duration of the seizure history. she has 4 sons, all of whom she reports as healthy. Living arrangement: At home Living Situation: With family Social History Notes: Pt is and lives at home in [place] with 2 of her 4 sons, her boyfriend, and her ex-. She does not work due to her respiratory issues. Reports occasionally smoking marijuana. Former 1/2 PPD smoker, quit in May 2015. No longer drinks alcohol, preferred drink was Vodka, but quit in 2014 or 2015. Denies illicit drug use including cocaine, heroin and meth. - Substance History Use: Uses substance without health or social issues: Cannabis (Reports occasionally smoking marijuana) Abuse: Recurrent use of substance despite neg consequences: NONE Dependence: Experiences withdrawal or developed tolerances: NONE Tobacco Details: Cigarettes (Reports she quit smoking in 2014, previously smoked 1/2 PPD) - POLST Patient has POLST: No POLST Status: Full Code (Discussed with Pt and she elected for full code) Meds/Allgy - Home Medications Home Medications: Ambulatory Orders Medication Instructions Recorded Confirmed Albuterol Sulfate [Proair Hfa 2 puffs INH Q4H PRN 03/02/08/27/21 Inhaler] Atorvastatin Calcium 10 mg PO QPM 02/10/18 08/27/21 ARIPiprazole [Aripiprazole] 10 mg PO DAILY 08/27/21 08/27/21 Butalb/Acetaminophen/Caffeine 1 - 2 each PO Q6H PRN 08/27/21 08/27/21 [Fioricet 50-300-40 mg Capsule] Candesartan Cilexetil [Atacand] 2 mg PO BID 08/27/21 08/27/21 Cyanocobalamin [Vitamin B-12] 1,000 mcg IM Q21D 08/27/21 08/27/21 Fluoxetine HCl [Prozac] 80 mg PO DAILY 08/27/21 08/27/21 Levothyroxine [Synthroid] 125 mcg PO QDAC 08/27/21 08/27/21 Mirtazapine 15 - 30 mg PO QPM PRN 08/27/21 08/27/21 Naratriptan HCl [Amerge] 2.5 mg PO ONCE PRN 08/27/21 08/27/21 Omeprazole Magnesium 20 mg PO DAILY 08/27/21 08/27/21 Solifenacin Succinate [Vesicare] 10 mg PO DAILY 08/27/21 08/27/21 Tizanidine HCl 1 - 2 mg PO Q8H PRN 08/27/21 08/27/21 ondansetron HCL [Ondansetron HCl] 8 mg PO Q6H PRN 08/27/21 08/27/21 - Allergies Allergies/Adverse Reactions: Allergies Allergy/AdvReac Type Severity Reaction Status Date / Time diazepam [From Valium] Allergy Unknown Verified 08/27/21 10:32 NSAIDS (Non-Steroidal Allergy Unknown Verified 08/27/21 10:32 Anti-Inflamma zolpidem [From Ambien] Allergy Unknown Verified 08/27/21 10:32 Review of Systems - Constitutional Constitutional: reports: Other ("jittery"). denies: Fatigue, Fever, Chills, Malaise, Weakness, Poor appetite, Night sweats - Eyes Eyes: denies: Pain, Blurred vision, Spots in vision - Ears, Nose & Throat Ears, Nose & Throat: denies: Ear pain, Sore throat, Dental pain - Cardiovascular Cariovascular: reports: Exertional dyspnea. denies: Irregular heart rate, Palpitations, Chest pain, Edema, Lightheadedness, Syncope - Respiratory Respiratory: reports: Wheezing. denies: Cough, Sputum production - Gastrointestinal Gastrointestinal: denies: Abdominal pain, Constipation, Diarrhea, Change in bowel habits, Nausea, Vomiting - Genitourinary Genitourinary: denies: Dysuria, Frequency, Urgency, Hematuria - Musculoskeletal Musculoskeletal: denies: Muscle pain, Back pain, Muscle aches - Integumentary Integumentary: denies: Rash - Neurological Neurological: reports: Seizures. denies: General weakness, Focal weakness, Headache, Dizziness, Numbness - Psychiatric Psychiatric: reports: Depression, Anxiety - Endocrine Endocrine: denies: Polyuria, Polydypsia, Polyphagia, Intolerance to cold, Intolerance to heat - Hematologic/Lymphatic Hematologic/Lymphatic: denies: Anemia - All Other Systems All Other Systems: reports: Reviewed and negative Prior Level of Functionality: Prior to admission Pt lives at home with family but is able to get around independently. Uses 2L NC at baseline. Requires a walker for long distances but able to get around her house without assistance. Independent with ADLs and iADLs. Exam - Vital Signs Reviewed Vital Signs: Yes Vital Signs: Vital Signs x48h Temp Pulse Resp BP Pulse Ox 08/27/21 12:23 86 17 134/84 H 95 08/27/21 11:58 91 22 147/91 H 91 L 08/27/21 11:07 85 23 147/91 H 91 L 08/27/21 10:39 83 17 174/88 H 93 08/27/21 10:17 37.5 C 75 22 140/84 H 92 - Physical Exam General Appearance: positive: No acute distress, Alert Eyes Bilateral: positive: Normal inspection, PERRL, No lid inflammation, No scleral icterus ENT: positive: ENT inspection nml, No signs of dehydration Neck: positive: Nml inspection Respiratory: positive: Chest non-tender, No respiratory distress, Wheezes (wheezes in bilateral bases) Cardiovascular: positive: Regular rate & rhythm, No murmur, No gallop. nega tive: Friction rub Peripheral Pulses: positive: 2+ Abdomen: positive: Non-tender, No organomegaly, Nml bowel sounds, No distention Skin: positive: Color nml, No rash, Warm, Dry Extremities: positive: Non-tender, Full ROM, Nml appearance, No pedal edema Neurologic/Psychiatric: positive: Oriented x3, CN's nml (2-12), Sensation nml, Mood/affect nml Sepsis Event Note (H) - Evaluation Current Stage of Sepsis: Ruled out Conclusion/Plan - Problem List (1) New onset seizure Conclusion/Plan: Pt presented to the ED today with a new onset seizure. She reports she first had a seizure this morning, witnessed by her son and boyfriend but not sure how long it lasted. Denies LOC but did fall and hit her head as a sequela of the seizure. Denies seeing an aura, feeling dizzy or light-headed, or headache/migraine prior to seizure onset. Does report she felt "jittery" before and after the seizure. No incontinence. Her family called EMS and she was sent for evaluation and noted to have another seizure, witnessed in the ED and la sting approximately 1 minute. Post-ictal state resolved fairly quickly, she is now just tired and continues to feel jittery. Has no other associated symptoms. Head CT was normal. No electrolyte abnormalities. TSH was normal in the ED. No recent medication changes per patient. She denies recent use of alcohol ("it's been a few years"). It is unclear what is driving these seizures currently. She was admitted for observation status, will obtain an MRI tomorrow and start her on Keppra. -MRI Saturday -Seizure precautions -Keppra 500mg po BID (2) HTN (hypertension) Conclusion/Plan: Pt has a history of hypertension for which she takes Candesartan Cilexetil 2mg PO BID. She reportedly took her morning medications. Her blood pressures have been 120s-140s/80s-90s. Once medication reconciliation has been completed will plan to resume her home meds. -Resume Candesartan Cilexetil Qualifiers: Hypertension type: primary hypertension Qualified Code(s): I10 - Essential (primary) hypertension (3) COPD (chronic obstructive pulmonary disease) with emphysema Conclusion/Plan: Stable. Pt has a history of COPD and Emphysema. She uses 2L NC at home. She is not currently short of breath or experiencing an exacerbation. Will resume home medications. -Resume home medications -Continue 2L NC (4) Anxiety disorder Conclusion/Plan: Pt has a history of anxiety disorder and takes multiple medications, none of whi ch appear to cause seizures without ingesting large doses/quantities. She denies current overdose and her UTOX supports this, will plan to resume her home medications once medication reconciliation has been completed. She is currently reporting anxiety and feeling jittery. Qualifiers: Anxiety disorder type: generalized anxiety disorder Qualified Code(s): F41.1 - Generalized anxiety disorder (5) Hypothyroidism Conclusion/Plan: Pt has a history of hypothyroidism for which she takes levothyroxine. TSH level obtained in the ED was 0.65. No current signs of hypothyroidism, will resume home med. -Resume Levothyroxine Qualifiers: Hypothyroidism type: unspecified Qualified Code(s): E03.9 - Hypothyroidism, unspecified - Lab Results Lab results reviewed: Yes Fish Bones: 08/27/21 11:25 08/27/21 11:25 - Diagnostic Imaging Results Diagnostic Imaging Results: positive: Final report reviewed Diagnostic Imaging Results Comments: 08/27 CXR: Minimal generalized interstitial prominence can be seen, which may be related to minimal pulmonary edema. 08/[address]: No acute intracranial abnormality. Core Measures - Anticipated LOS I expect patient to be DC'd or transferred within 96 hours.: Yes - Issues Hospital Issues and Management Plan: Admitted for multiple seizures under observation status, admitted for medications and work up to include MRI. Will likely require outpatient follow up. - DVT/VTE - Prophylaxis VTE/DVT Device ordered at admit?: Yes
--- NOTE | 2021-08-27 16:20 | PHARMACY PROGRESS NOTE ---
- Best Possible Medication History Admit Date and Time: 08/27/21 1257 Processed by: Pharmacy Medication History completed: Yes Patient Interview: Completed Secondary Source(s): Physician records, Pharmacy records, Insurance records As the person ultimately responsible for medication therapy, providers are able to order a medication from an existing home medication list in [facility] via the "Reconcile Routine" prior to Confirmation of that medication by senior technical support engineer. Such practice is discouraged except when the physician, in their clinical judgment, deems that a medical need exists for a medication without regard to previous use.
[2021-08-27] MEDS ORDERED: ACETAMINOPHEN 325 MG TABLET PO PRN (16:44)
[2021-08-27] MEDS: SODIUM CHLORIDE FLUSH 0.9% 10 ML SYRINGE IVP SCH (18:27)
[2021-08-27] MEDS: levETIRAcetam 250 MG TABLET PO SCH (20:35)
[2021-08-27] MEDS ORDERED: ONDANSETRON 4 MG/2 ML VIAL IVP PRN (23:52)
[2021-08-28 06:40] LABS: HCT - HEMATOCRIT 33.4 % (37.0-47.0); HGB - HEMOGLOBIN 11.4 g/dL (12.0-16.0); MEAN CORPUSCULAR HEMOGLOBIN 33.8 pg (27.0-31.0); MEAN CORPUSCULAR HGB CONC 34.1 g/dL (32.0-36.0); MEAN CORPUSCULAR VOLUME 99.1 fL (81.0-99.0); RED BLOOD COUNT 3.37 10^6/uL (4.20-5.40); RED CELL DISTRIBUTION WIDTH 12.1 % (12.0-15.0); WHITE BLOOD COUNT 10.6 x10^3/uL (4.8-10.8)
[2021-08-28 06:51] LABS: CALCIUM 8.9 mg/dL (8.5-10.3); CREATININE 0.6 mg/dL (0.4-1.0)
[2021-08-28] MEDS: SODIUM CHLORIDE FLUSH 0.9% 10 ML SYRINGE IVP SCH ×2 (07:30→08:40)
[2021-08-28] MEDS: levETIRAcetam 250 MG TABLET PO SCH (08:40)
[2021-08-28 11:07] VITALS: BP 121/94
[2021-08-28] MEDS ORDERED: GADOBUTROL 7.5 MMOL/7.5 ML VIAL ONE (11:48)
--- NOTE | 2021-08-28 13:15 | Discharge Plan ---
Discharge Plan Problem Reviewed?: Yes Diet: Regular Activity Restrictions: Activity as Tolerated Driving Restrictions: Yes (No driving for 6 months, until cleared by Neurologist) No Smoking: If you smoke, Please STOP! Call for help. Disposition: 01 Home, Self Care Condition: Stable Prescriptions: levETIRAcetam [Keppra] 500 mg PO BID #120 tablet Instruction Topics: ED Seizure New Onset Unk Cause Health Concerns: You were admitted after having a seizure at home and again in the ER. We performed a workup that including checking your labs, a head CT and a brain MRI. All came back normal and there is no clear explanation for your seizures. We have started you on Keppra 500mg by mouth twice daily and you should continue to take this. You will need to follow up with your Neurologist and Primary Care Provider. Do not drive for the next 6 months until cleared by your providers due to the high risk for another seizure. Plan of Treatment: Follow up with your PCP and Neurologist in 1-2 weeks. Continue to take your Keppra pills twice a day. Do not drive for at least 6 months until you are cleared by your PCP. Follow-up with: Alexandra Montana PA-C [Provider Admit Priv/Credential] -
--- NOTE | 2021-08-28 13:21 | DISCHARGE SUMMARY ---
Discharge Summary Admit Date: 08/27/21 Discharge Date: 08/28/21 Discharging Provider: MONTRELL Mcgee Primary Care Provider: Alexandra HARO Code Status: Attempt Resuscitation Condition at Discharge: Stable Discharge Disposition: 01 Home, Self Care - DIAGNOSES Admission Diagnoses: (1) New onset seizure (2) HTN (hypertension) (3) COPD (chronic obstructive pulmonary disease) with emphysema (4) Anxiety disorder (5) Hypothyroidism Discharge Diagnoses with Status of Each Condition: (1) New onset seizure Conclusion/Plan: Pt presented to the ED with a new onset seizure. She had two seizures, one at home and one in the ED, but no seizures after transferring out of the ED. She recovered quickly and denied seeing an aura, feeling dizzy or light-headed, or headache/migraine prior to seizure onset. Does report she felt "jittery" before and after the seizure. No incontinence. Has no other associated symptoms. Head CT was normal. MRI showed no findings of acute or subacute infarction and no masses or abnormal enhancements. No electrolyte abnormalities. TSH was normal in the ED. No recent medication changes per patient. She denies recent use of alcohol ("it's been a few years"). It remains unclear what is driving these seizures currently. She was started on Keppra and will need to follow up with her PCP and Neurologist. (2) HTN (hypertension) Conclusion/Plan: Stable. Her blood pressures were 120s-140s/80s-90s on admission and have been 110-120s/70s today. -Continue Candesartan Cilexetil Qualifiers: Hypertension type: primary hypertension Qualified Code(s): I10 - Essential (primary) hypertension (3) COPD (chronic obstructive pulmonary disease) with emphysema Conclusion/Plan: Stable. Pt has a history of COPD and Emphysema. She uses 2L NC at home. She is not currently short of breath or experiencing an exacerbation. home medications were continued. (4) Anxiety disorder Conclusion/Plan: Stable. She can resume her home medications and has had minimal anxiety today. Pt has a history of anxiety disorder and takes multiple medications, none of which appear to cause seizures without ingesting large doses/quantities. She denies current overdose and her UTOX supports this, will plan to resume her home medications once medication reconciliation has been completed. Qualifiers: Anxiety disorder type: generalized anxiety disorder Qualified Code(s): F41.1 - Generalized anxiety disorder (5) Hypothyroidism Conclusion/Plan: Stable. Pt has a history of hypothyroidism for which she takes levothyroxine. TSH level obtained in the ED was 0.65. No current signs of hypothyroidism. -Continue Levothyroxine - HPI History of Present Illness: from H&P 08/27 Pt presented to the ED today with a new onset seizure. She has an extensive past medical history, including hypothyroidism, migraines, HTN, and chronic pain. She reports she first had a seizure this morning, witnessed by her son and boyfriend but not sure how long it lasted. Denies LOC but did fall and hit her head as a sequela of the seizure. Denies seeing an aura, feeling dizzy or light-headed, or headache/migraine prior to seizure onset. Does report she felt "jittery" before and after the seizure. No incontinence. Her family called EMS and she was sent for evaluation and noted to have another seizure, witnessed in the ED and lasting approximately 1 minute. Post-ictal state resolved fairly quickly, she is now just tired and continues to feel jittery. Has no other associated symptoms. Head CT was normal. No electrolyte abnormalities. TSH was normal in the ED. No recent medication changes per patient. She denies recent use of alcohol ("it's been a few years"). It is unclear what is driving these seizures currently. She was admitted for observation status, will obtain an MRI tomorrow and start her on Keppra. After discussion with Pt she is a full code. - CONSULTS | PROCEDURES Procedures: 08/28 Brain MRI No findings of acute or subacute infarction are seen. No masses or abnormal enhancement can be seen. Subtle asymmetry of the hippocampi, with the right hippocampus slightly smaller than the left. Scattered foci of T2 hyperintense white matter lesions can be seen, which are similar to 2017. In a patient of this age, these are statistically most likely related to chronic small vessel ischemic change, although differential diagnosis would include a demyelinating process, including multilpe sclerosis. 08/27 Chest XRay Minimal generalized interstitial prominence can be seen, which may be related to minimal pulmonary edema 08/[address] No acute intracranial abnormality - HOSPITAL COURSE Hospital Course: Pt admitted for work up of new onset seizures after having a seizure at home and then again in the ER, both witnessed. She does not remember experiencing any precipitating events, denied auras and migraines. Her post-ictal state recovered rapidly and she has been alert and oriented, non-tremulous since arrival to the floor. Work up was negative, including electrolyte imbalance, medication changes or toxicity, head CT and brain MRI. TSH was also normal. She is back to her baseline state per her report. She was started on Keppra and tolerated the medication well. Slightly anxious, which she reports is her baseline. She will need to follow up with her PCP and her Neurologist for further follow up. She was discharged home with family. She has a history of COPD, HTN, Anxiety and hypothyroidism and all were well controlled and without signs of exacerbation. - ALLERGIES Allergies/Adverse Reactions: Allergies Allergy/AdvReac Type Severity Reaction Status Date / Time diazepam [From Valium] Allergy Unknown Verified 08/27/21 10:32 NSAIDS (Non-Steroidal Allergy Unknown Verified 08/27/21 10:32 Anti-Inflamma zolpidem [From Ambien] Allergy Unknown Verified 08/27/21 10:32 - MEDICATIONS Home Medications: Ambulatory Orders Medication Instructions Recorded Confirmed Albuterol Sulfate [Proair Hfa 2 puffs INH Q4H PRN 03/02/16 08/27/21 Inhaler] Atorvastatin Calcium 10 mg PO QPM 02/10/18 08/27/21 ARIPiprazole [Aripiprazole] 10 mg PO DAILY 08/27/21 08/27/21 Butalb/Acetaminophen/Caffeine 1 - 2 each PO Q6H PRN 08/27/21 08/27/21 [Fioricet 50-300-40 mg Capsule] Candesartan Cilexetil [Atacand] 2 mg PO BID 08/27/21 08/27/21 Cyanocobalamin [Vitamin B-12] 1,000 mcg IM Q21D 08/27/21 08/27/21 Fluoxetine HCl [Prozac] 80 mg PO DAILY 08/27/21 08/27/21 Levothyroxine [Synthroid] 125 mcg PO QDAC 08/27/21 08/27/21 Mirtazapine 15 - 30 mg PO QPM PRN 08/27/21 08/27/21 Naratriptan HCl [Amerge] 2.5 mg PO ONCE PRN 08/27/21 08/27/21 Omeprazole Magnesium 20 mg PO DAILY 08/27/21 08/27/21 Solifenacin Succinate [Vesicare] 10 mg PO DAILY 08/27/21 08/27/21 Tizanidine HCl 1 - 2 mg PO Q8H PRN 08/27/21 08/27/21 ondansetron HCL [Ondansetron HCl] 8 mg PO Q6H PRN 08/27/21 08/27/21 levETIRAcetam [Keppra] 500 mg PO BID #120 tablet 08/28/21 - PHYSICAL EXAM AT DISCHARGE General Appearance: positive: No acute distress, Alert Eyes Bilateral: positive: Normal inspection, PERRL, No scleral icterus ENT: positive: ENT inspection nml, No signs of dehydration Neck: positive: Nml inspection Respiratory: positive: Chest non-tender, No respiratory distress, Breath sounds nml Cardiovascular: positive: Regular rate & rhythm, No murmur, No gallop Peripheral Pulses: positive: 2+ Abdomen: positive: Non-tender, No organomegaly, Nml bowel sounds, No distention Skin: positive: Color nml, Warm, Dry Extremities: positive: Non-tender, Full ROM, Nml appearance, No pedal edema Neurologic/Psychiatric: positive: Oriented x3, CN's nml (2-12), Motor nml, Sensation nml, Mood/affect nml - LABS Result Diagrams: 08/28/21 06:01 08/28/21 06:01 - DIAGNOSTIC IMAGING Diagnostic Imaging Results: Final report reviewed - SEPSIS Current Stage of Sepsis: Ruled out - TIME SPENT Time Spent in Discharge (Minutes): 31
--- NOTE | 2021-08-28 13:22 | MRI Report ---
PROCEDURE: Brain W/WO INDICATIONS: New onset seizure. CONTRAST: IV CONTRAST: Gadavist ml: 4.9 TECHNIQUE: Noncontrast axial T1 spin echo, axial T2 fast spin echo, sagittal and axial FLAIR, thin section coron al T2 fast spin echo, axial gradient echo, axial diffusion and ADC through the brain. After the admi nistration of contrast, axial and coronal T1 spin echo with fat saturation through the brain. COMPARISON: Prior brain MRI, 02/01/2017. Correlation is made with head CT, 08/19/2021. FINDINGS: Image quality: Motion artifact is noted. CSF spaces: Basal cisterns are patent. No extra-axial fluid collections. Ventricles are normal in size and shape. Brain: No midline shift. No intracranial bleeds or masses. No abnormal intracranial enhancement. There is mild cerebral volume loss for age. A few scattered foci of T2-weighted hyperintensity can b e seen within the periventricular and deep white matter. A few juxtacortical lesions are also seen. These lesions do not enhance. These white matter lesions are not significantly changed compared to 20 17. The brainstem appears normal. Diffusion-weighted images demonstrate no acute ischemic insults. No chronic ischemic insults. Normal intravascular flow voids are present. In this patient with this given history, scrutiny is given to the hippocampi. The right hippocampus i s slightly smaller in volume than the left hippocampus, as seen on series 1301 image 17. Skull and face: Calvarial marrow is normal in signal. Orbits appear normal. Sinuses: At least moderate mucosal thickening is seen within the sphenoid sinuses and within the left maxillary sinus, with milder mucosal thickening seen elsewhere. No significant abnormal fluid can be seen within the mastoid air cells or within the middle ear cavities. IMPRESSION: No findings of acute or subacute infarction are seen. No masses or abnormal enhancement can be seen. Subtle asymmetry of the hippocampi, with the right hippocampus slightly smaller than the left. Scattered foci of T2 hyperintense white matter lesions can be seen, which are similar to 2017. In a p atient of this age, these are statistically most likely related to chronic small vessel ischemic nichole ge, although differential diagnosis would include a demyelinating process, including multiple scleros is. Reviewed by: Kieran Morgan MD on 08/28/2021 12:21 PM [place] Approved by: Kieran Morgan MD on 08/28/2021 12:21 PM [facility] Station ID: [id number]
[2021-08-28] MEDS ORDERED: GADOBUTROL 7.5 MMOL/7.5 ML VIAL IVP ONE (17:42)
== END 2021-08-28 15:00 | disposition home or self-care (01) ==
LOC: EDUNIT# → EDBD → ED 10:17 → MS2 12:57
PROVIDERS: ADMIT Registered Nurse; ATTEND Registered Nurse
DX: R56.9 Unspecified convulsions (principal); I10 Essential (primary) hypertension; J43.9 Emphysema, unspecified; F41.9 Anxiety disorder, unspecified; E03.9 Hypothyroidism, unspecified; G47.30 Sleep apnea, unspecified; K21.9 Gastro-esophageal reflux disease without esophagitis; Z87.11 Personal history of peptic ulcer disease; Z86.010 Personal history of colon polyps; G43.909 Migraine, unspecified, not intractable, without status migrainosus; M32.9 Systemic lupus erythematosus, unspecified; M79.7 Fibromyalgia; F41.0 Panic disorder [episodic paroxysmal anxiety]; F32.9 Major depressive disorder, single episode, unspecified; G89.29 Other chronic pain; M54.9 Dorsalgia, unspecified; R32 Unspecified urinary incontinence; Z20.822 Contact with and (suspected) exposure to COVID-19; Z72.89 Other problems related to lifestyle; Z79.899 Other long term (current) drug therapy; Z87.891 Personal history of nicotine dependence
CPT/HCPCS: 36415; 70450; 70553; 71045; 80048; 80053; 80306; 80307; 81003; 83690; 83735; 84443; 85025; 85027; 85651; 87631; 93005; 96365; 96375; 99283; 99285; A9270; A9585; G0378; G0480; J2060; 0202U; 80320; 80329; 81001; 87086

== ENCOUNTER 2021-10-19 15:18 | Outpatient (CLI) | payer MEDICARE, MEDICAID ==
--- NOTE | 2021-10-20 09:59 | Mammography Report ---
BILATERAL DIGITAL SCREENING MAMMOGRAM 3D/2D: 10/19/2021 CLINICAL: Routine screening. Comparison is made to exam dated: 01/31/2016 mammogram - [facility]. The tissue of both breasts is extremely dense, which lowers the sensitivity of mammography. No significant masses, calcifications, or other findings are seen in either breast. There has been no significant interval change. IMPRESSION: NEGATIVE There is no mammographic evidence of malignancy. A 1 year screening mammogram is recommended. This exam was interpreted at Station ID: [id number]. NOTE: For mammograms, a report in lay terms will be sent to the patient. Approximately 15% of breast malignancies will not be visualized mammographically. In the management of a palpable breast mass, a negative mammogram must not discourage biopsy of a clinically suspicious lesion. Electronically Signed By: Wallace Ulloa M.D. ddp/penrad:10/19/2021 16:34:35 ACR BI-RADS Category 1: Negative 3341F PARENCHYMAL PATTERN: (VD) - The breast(s) demonstrate(s) extremely dense parenchyma, limiting the sen sitivity of mammography. BI-RADS CATEGORY: (1) - 1 RECOMMENDATION: (ANNUAL) - Recommend routine annual screening mammography. [id number] 1 year screening LATERALITY: (B)
== END 2021-10-19 15:19 | disposition home or self-care (01) ==
LOC: DI.N 15:18
DX: Z12.31 Encounter for screening mammogram for malignant neoplasm of breast (principal)

== ENCOUNTER 2022-02-21 14:13 | Outpatient (CLI) | payer MEDICARE, MEDICAID ==
--- NOTE | 2022-02-21 16:59 | DEXA Report ---
PROCEDURE: Dexa Spine and/or Hip INDICATIONS: POST MENOPAUSAL, HYPOTENSION TECHNIQUE: Dual energy x-ray absorptiometry (DXA) was performed on a [employer] System. Regions measur ed are the AP Spine, femoral neck, and if needed forearm. COMPARISON: None. FINDINGS: Lumbar Spine: Bone Mineral Density 0.953 g/cm/cm,T score -1.9, osteopenia Left Hip: Bone Mineral Density 0.633 g/cm/cm,T score -3.0, osteoporosis Left Femoral Neck: Bone Mineral Density 0.706 g/cm/cm, T score -2.4, osteopenia (T score greater or equal to -1.0: NORMAL) (T score from -1.1 to -2.4: OSTEOPENIA) (T score less than or equal to -2.5 to: OSTEOPOROSIS) Impression: Osteoporosis. Patients with diagnosis of osteoporosis or osteopenia should have regular bone mineral density assess ment. For those eligible for Medicare, routine testing is allowed once every 2 years. Testing frequ ency can be increased for patients who have rapidly progressing disease or for those who are receivin g medical therapy to restore bone mass. Reviewed by: Puja Mercedes MD, PhD on 02/21/2022 4:57 PM PDT Approved by: Puja Mercedes MD, PhD on 02/21/2022 4:57 PM PDT Station ID: [id number]
--- NOTE | 2022-02-22 15:32 | Ultrasound Report ---
PROCEDURE: Ankle Brachial Index INDICATIONS: POST MENOPAUSAL, HYPOTENSION TECHNIQUE: Ankle-brachial indices were obtained bilaterally and recorded. COMPARISONS: None. FINDINGS: Right ankle brachial index (PADMINI): 0.9 Left ankle brachial index (PADMINI): 0.9 Left and right brachial pressures: 108/62 and 112/70 respectively. Left and right brachial pressures: 121/79 and 110/74 respectively IMPRESSION: ABIs are within normal limits. Reviewed by: Vesna Guzman MD on 02/22/2022 3:30 PM PDT Approved by: Vesna Guzman MD on 02/22/2022 3:30 PM PDT Station ID: [id number]
== END 2022-02-21 14:14 | disposition home or self-care (01) ==
LOC: DI 14:13
PROVIDERS: ATTEND Physician Assistant Medical
DX: Z78.0 Asymptomatic menopausal state (principal); M81.0 Age-related osteoporosis without current pathological fracture; I95.9 Hypotension, unspecified
CPT/HCPCS: 93922

== ENCOUNTER 2022-04-18 13:03 | Outpatient (CLI) | payer MEDICARE, MEDICAID ==
[2022-04-18 18:01] LABS: ALBUMIN 3.6 g/dL (3.2-5.5); ALBUMIN/GLOBULIN RATIO 0.8 (1.0-2.2); ALKALINE PHOSPHATASE 121 IU/L (42-121); ALT ALANINE AMINOTRANSFERASE 23 IU/L (10-60); AST ASPARTATE AMINOTRANSFERASE 24 IU/L (10-42); BILIRUBIN,TOTAL 0.4 mg/dL (0.2-1.0); BUN - BLOOD UREA NITROGEN 14 mg/dL (6-20); CALCIUM 9.7 mg/dL (8.5-10.3); CARBON DIOXIDE - CO2 30 mmol/L (21-32); CHLORIDE 102 mmol/L (101-111); CHOL/HDL RATIO 4.2 (<4.4); CHOLESTEROL 205 mg/dL; CREATININE 0.8 mg/dL (0.4-1.0); GFR - MDRD 73 (>89); GLUCOSE 99 mg/dL (70-100); HDL CHOLESTEROL 49 mg/dL; LDL CHOLESTEROL,CALCULATED 135 mg/dL; LDL/HDL RATIO 2.8 (<4.4); SODIUM 140 mmol/L (135-145); TOTAL PROTEIN 8.1 g/dL (6.7-8.2); TRIGLYCERIDES 106 mg/dL; VLDL CHOLESTEROL 21 mg/dL
== END 2022-04-18 13:04 | disposition home or self-care (01) ==
LOC: LAB.N 13:03
PROVIDERS: ATTEND Physician Assistant Medical
DX: E78.5 Hyperlipidemia, unspecified (principal)
CPT/HCPCS: 36415; 80053; 80061; 83721

== ENCOUNTER 2022-04-26 10:55 | Outpatient (CLI) | payer MEDICARE, MEDICAID | END 2022-04-26 10:56 | disposition home or self-care (01) | LOC: LAB.N 10:55 | PROVIDERS: ATTEND Physician Assistant Medical | DX: Z71.9 Counseling, unspecified (principal) | CPT/HCPCS: 81599; 86480 ==

== ENCOUNTER 2022-09-01 09:37 | Outpatient (CLI) | payer MEDICARE, MEDICAID ==
[2022-09-01 19:05] LABS: ALBUMIN 3.5 g/dL (3.2-5.5); ALBUMIN/GLOBULIN RATIO 0.9 (1.0-2.2); ALKALINE PHOSPHATASE 107 IU/L (42-121); ALT ALANINE AMINOTRANSFERASE 14 IU/L (10-60); AST ASPARTATE AMINOTRANSFERASE 17 IU/L (10-42); BILIRUBIN,TOTAL < 0.2 mg/dL (0.2-1.0); BUN - BLOOD UREA NITROGEN 16 mg/dL (6-20); CALCIUM 9.3 mg/dL (8.5-10.3); CARBON DIOXIDE - CO2 30 mmol/L (21-32); CHLORIDE 101 mmol/L (101-111); CREATININE 0.8 mg/dL (0.4-1.0); GFR - MDRD 73 (>89); GLUCOSE 88 mg/dL (70-100); POTASSIUM 4.9 mmol/L (3.5-5.0); SODIUM 139 mmol/L (135-145); TOTAL PROTEIN 7.6 g/dL (6.7-8.2)
[2022-09-01 19:17] LABS: THYROID STIMULATING HORMONE 0.65 uIU/mL (0.34-5.60)
== END 2022-09-01 09:38 | disposition home or self-care (01) ==
LOC: LAB.N 09:37
PROVIDERS: ATTEND Physician Assistant Medical
DX: E03.9 Hypothyroidism, unspecified (principal); R74.8 Abnormal levels of other serum enzymes
CPT/HCPCS: 36415; 80053; 84443

== ENCOUNTER 2022-11-01 13:24 | Outpatient (CLI) | payer MEDICARE, MEDICAID ==
--- NOTE | 2022-11-02 12:23 | Mammography Report ---
BILATERAL DIGITAL SCREENING MAMMOGRAM 3D/2D: 11/01/2022 CLINICAL: Routine screening. Comparison is made to exams dated: 10/19/2021 mammogram and 01/31/2016 mammogram - [facility]. Both breasts are heterogeneously dense, which may obscure small masses (category c / 51-75% glandular tissue). No significant masses, calcifications, or other findings are seen in either breast. There has been no significant interval change. IMPRESSION: NEGATIVE There is no mammographic evidence of malignancy. A 1 year screening mammogram is recommended. Based on the Tyrer Cuzick model (a risk assessment model) the patients lifetime risk is 8.5% and her 10 year risk is 3.6%. According to the ACR, ACS, and NCCN guidelines, an annual breast MRI exam charlene g with mammogram is recommended if the patients lifetime risk is 20% or greater. This exam was interpreted at Station ID: [id number]. NOTE: For mammograms, a report in lay terms will be sent to the patient. Approximately 15% of breast malignancies will not be visualized mammographically. In the management of a palpable breast mass, a negative mammogram must not discourage biopsy of a clinically suspicious lesion. Electronically Signed By: Hernan Gregg M.D., jr/fran:11/01/2022 14:11:43 ACR BI-RADS Category 1: Negative 3341F PARENCHYMAL PATTERN: (D) - The breast(s) demonstrate(s) heterogeneously dense fibroglandular paraideny ma. BI-RADS CATEGORY: (1) - 1 RECOMMENDATION: (ANNUAL) - Recommend routine annual screening mammography. [id number] 1 year screening LATERALITY: (B)
== END 2022-11-01 13:25 | disposition home or self-care (01) ==
LOC: DI.N 13:24
DX: Z12.31 Encounter for screening mammogram for malignant neoplasm of breast (principal)

== ENCOUNTER 2022-11-14 10:09 | Outpatient (CLI) | payer MEDICARE, MEDICAID ==
[2022-11-14 10:31] LABS: BASOPHILS # (AUTO) 0.1 10^3/uL (0.0-0.1); EOSINOPHILS # (AUTO) 0.7 10^3/uL (0.0-0.7); EOSINOPHILS % (AUTO) 9.1 %; HCT - HEMATOCRIT 38.1 % (37.0-47.0); LYMPHOCYTES # (AUTO) 2.4 10^3/uL (1.5-3.5); LYMPHOCYTES % (AUTO) 30.3 %; MEAN CORPUSCULAR HEMOGLOBIN 30.8 pg (27.0-31.0); MEAN CORPUSCULAR HGB CONC 31.5 g/dL (32.0-36.0); MEAN CORPUSCULAR VOLUME 97.9 fL (81.0-99.0); MEAN PLATELET VOLUME 9.5 fL (7.9-10.8); MONOCYTES # (AUTO) 0.4 10^3/uL (0.0-1.0); MONOCYTES % (AUTO) 4.8 %; NEUTROPHILS # (AUTO) 4.3 10^3/uL (1.5-6.6); NEUTROPHILS % (AUTO) 54.5 %; PLT - PLATELET COUNT 303 10^3/uL (130-450); RED BLOOD COUNT 3.89 10^6/uL (4.20-5.40); RED CELL DISTRIBUTION WIDTH 13.3 % (12.0-15.0); WHITE BLOOD COUNT 7.9 x10^3/uL (4.8-10.8)
[2022-11-14 10:43] LABS: ALBUMIN 3.2 g/dL (3.2-5.5); ALBUMIN/GLOBULIN RATIO 0.7 (1.0-2.2); BILIRUBIN,TOTAL 0.3 mg/dL (0.2-1.0); CALCIUM 8.9 mg/dL (8.5-10.3); CREATININE 0.8 mg/dL (0.4-1.0); POTASSIUM 4.4 mmol/L (3.5-5.0); TOTAL PROTEIN 7.7 g/dL (6.7-8.2)
== END 2022-11-14 10:10 | disposition home or self-care (01) ==
LOC: LAB 10:09
PROVIDERS: ATTEND Physician Assistant Medical
DX: R74.8 Abnormal levels of other serum enzymes (principal); R56.9 Unspecified convulsions; R63.4 Abnormal weight loss
CPT/HCPCS: 36415; 80053; 80177; 85025

== ENCOUNTER 2022-11-20 08:18 | Outpatient (CLI) | payer MEDICARE, MEDICAID ==
[2022-11-20] MEDS ORDERED: iohexoL-300 100 ML VIAL ONE ×2 (08:24→09:42)
[2022-11-20] MEDS ORDERED: DIATRIZOATE MEGLU/DIATRIZO SOD 30 ML BOTTLE PO ONE ×2 (08:24→10:10)
[2022-11-20] MEDS ORDERED: iohexoL-300 100 ML VIAL IVP ONE (10:10)
--- NOTE | 2022-11-20 10:31 | CT Report ---
PROCEDURE: CHEST W INDICATIONS: WEIGHT LOSS CONTRAST:50ml Omnipaque (Second Injection) total 150ml. TECHNIQUE: After the administration of intravenous contrast, 1 mm axial images were acquired from the pulmonary apices through the posterior costophrenic angles. Axial 5 mm soft tissue kernel reconstructions were performed as well as 8 mm axial MIP and coronal and sagittal 5 mm reformations. For radiation dose reduction, the following was used: automated exposure control, adjustment of mA and/or kV according to patient size. COMPARISON: 02/25/2018 FINDINGS: Image quality: Good Lungs and pleura:No dense consolidation or pleural effusions. Again seen is diffuse cystic lung disea se. These cysts are irregular in size, some which have increased, for example on the left fissure (dilshad ng series image 111) measuring 11 mm in thickness, previously 7 mm. The cysts are slightly more prevalent in the upper lobes. Stable pulmonary micronodules are present, for example in the right upper lobe 16/34. There may be also a component of emphysema. Mediastinum, heart, and esophagus: The esophagus is patulous, nonspecific appearance. Mild wall thick ening is also nonspecific and would be better evaluated with endoscopy. Overall heart size is normal. There are coronary calcifications. Prominent, non-specific lymph nodes are present that are not enla rged by size criteria. Chest wall and thyroid: Thyroid is relatively atrophic. Chest wall is unremarkable. Upper abdomen: Separately dictated Bones: There is a sternal deformity that is new compared to 2018, possibly nonacute, correlate with a ny symptoms. There are degenerative changes of the spine. IMPRESSION: Slightly progressed cystic lung disease compared to 2018 imaging. If the patient is a smoker, Langerh ans cell histiocytosis is favored. There may be a component of emphysema. Pulmonary micronodules are also present. No definite disseminated metastases in the chest. Please consider follow-up imaging at clinical discretion, particularly if the patient has risk factor s for thoracic malignancy such as smoking. Other findings as above. Abdomen findings are separately dictated. A sternal deformity is present, new from 2018, correlate with any symptoms and past injury. Reviewed by: Dion Martínez MD on 11/20/2022 10:29 AM PST Approved by: Dion Martínez MD on 11/20/2022 10:29 AM PST Station ID: [id number]
--- NOTE | 2022-11-20 10:39 | CT Report ---
PROCEDURE: ABDOMEN/PELVIS W INDICATIONS: WEIGHT LOSS CONTRAST: 100ml Omnipaque TECHNIQUE: After the administration of IV and oral contrast, 5 mm thick sections acquired from the diaphragms to the symphysis. 5 mm thick coronal and sagittal reformats were acquired. For radiation dose reducti on, the following was used: automated exposure control, adjustment of mA and/or kV according to jamila ent size. COMPARISON: None. FINDINGS: Image quality: Good Lower chest: Separately dictated Solid organs: Subcentimeter lesions are too small to characterize. Liver is otherwise unremarkable. G allbladder is absent. No pathologic dilation of the biliary tree or pancreatic duct, allowing for pos tcholecystectomy state. No splenomegaly. Adrenal thickening without discrete nodularity. Bosniak 1 an d 2 renal lesions are present, for which no dedicated follow-up is necessary per 2019 proposed guidel kamari. Vessels and lymph nodes: The main portal vein is patent. No abdominal aortic aneurysm. No pathologic adenopathy by size criteria. Bowel and peritoneum: No evidence of small bowel obstruction. No pathologic ascites. Mild wall thicke jason and fat stranding around the transverse colon. Normal appendix. Body wall: Unremarkable Pelvis: Hysterectomy. Bladder is underdistended. Bones: No acute or suspicious osseous finding. IMPRESSION: No definite findings of disseminated malignancy the abdomen or pelvis. Chest findings are separately dictated. Possible mild colitis at the transverse colon. Please also correlate with any history of age-appropri ate colonoscopy results. Other findings as above. Reviewed by: Dion Martínez MD on 11/20/2022 10:37 AM [facility] Approved by: Dion Martínez MD on 11/20/2022 10:37 AM [facility] Station ID: [id number]
== END 2022-11-20 08:19 | disposition home or self-care (01) ==
LOC: DI 08:18
PROVIDERS: ATTEND Physician Assistant Medical
DX: R63.4 Abnormal weight loss (principal); J98.4 Other disorders of lung; R91.8 Other nonspecific abnormal finding of lung field; R93.7 Abnormal findings on diagnostic imaging of other parts of musculoskeletal system
CPT/HCPCS: 71260; 74177; Q9963; Q9967

== ENCOUNTER 2023-02-18 08:23 | Outpatient (CLI) | payer MEDICARE, MEDICAID ==
--- NOTE | 2023-02-18 09:49 | DEXA Report ---
PROCEDURE: Dexa Spine and/or Hip INDICATIONS: OSTEOPOROSIS TECHNIQUE: Dual energy x-ray absorptiometry (DXA) was performed on a [employer] System. Regions measur ed are the AP Spine, femoral neck, and if needed forearm. COMPARISON: 02/21/2022 FINDINGS: Lumbar Spine: Bone Mineral Density 0.92 g/cm/cm,T score -2.2. Previously -1.9 Left Femoral Neck: Bone Mineral Density 0.68 g/cm/cm, T score -2.6. Previously -2.4 Left Hip: Bone Mineral Density 0.59 g/cm/cm,T score -3.3. -3 previously. (T score greater or equal to -1.0: NORMAL) (T score from -1.1 to -2.4: OSTEOPENIA) (T score less than or equal to -2.5 to: OSTEOPOROSIS) Impression: By WHO criteria, this patient has osteoporosis. Osteopenia of the lumbar spine. Osteoporosis of the l eft femoral neck and hip. T-scores are slightly worse compared to prior imaging. Fracture risk is inc reased. Patients with diagnosis of osteoporosis or osteopenia should have regular bone mineral density assess ment. For those eligible for Medicare, routine testing is allowed once every 2 years. Testing frequ ency can be increased for patients who have rapidly progressing disease or for those who are receivin g medical therapy to restore bone mass. Reviewed by: Dion Martínez MD on 02/18/2023 9:47 AM PDT Approved by: Dion Martínez MD on 02/18/2023 9:47 AM PDT Station ID: [id number]
== END 2023-02-18 08:24 | disposition home or self-care (01) ==
LOC: DI 08:23
PROVIDERS: ATTEND Physician Assistant Medical
DX: Z78.0 Asymptomatic menopausal state (principal); M81.0 Age-related osteoporosis without current pathological fracture

== ENCOUNTER 2023-02-21 08:00 | Outpatient (CLI) | payer MEDICARE, MEDICAID ==
[2023-02-21 11:58] LABS: BASOPHILS # (AUTO) 0.1 10^3/uL (0.0-0.1); BASOPHILS % (AUTO) 1.3 %; EOSINOPHILS # (AUTO) 0.6 10^3/uL (0.0-0.7); EOSINOPHILS % (AUTO) 7.5 %; HCT - HEMATOCRIT 39.7 % (37.0-47.0); HGB - HEMOGLOBIN 12.3 g/dL (12.0-16.0); LYMPHOCYTES # (AUTO) 2.3 10^3/uL (1.5-3.5); LYMPHOCYTES % (AUTO) 30.2 %; MEAN CORPUSCULAR HEMOGLOBIN 30.4 pg (27.0-31.0); MEAN CORPUSCULAR VOLUME 98.3 fL (81.0-99.0); MEAN PLATELET VOLUME 10.2 fL (7.9-10.8); MONOCYTES # (AUTO) 0.5 10^3/uL (0.0-1.0); MONOCYTES % (AUTO) 6.6 %; PLT - PLATELET COUNT 330 10^3/uL (130-450); RED BLOOD COUNT 4.04 10^6/uL (4.20-5.40); RED CELL DISTRIBUTION WIDTH 13.9 % (12.0-15.0); WHITE BLOOD COUNT 7.5 x10^3/uL (4.8-10.8)
[2023-02-21 12:41] LABS: FOLATE 17.53 ng/mL (5.90 - >24.8)
[2023-02-21 14:59] LABS: ALBUMIN 3.5 g/dL (3.2-5.5); ALBUMIN/GLOBULIN RATIO 0.7 (1.0-2.2); ALKALINE PHOSPHATASE 86 IU/L (42-121); ALT ALANINE AMINOTRANSFERASE 14 IU/L (10-60); AST ASPARTATE AMINOTRANSFERASE 16 IU/L (10-42); BILIRUBIN,TOTAL 0.4 mg/dL (0.2-1.0); BUN - BLOOD UREA NITROGEN 14 mg/dL (6-20); CALCIUM 9.1 mg/dL (8.5-10.3); CARBON DIOXIDE - CO2 30 mmol/L (21-32); CHLORIDE 102 mmol/L (101-111); CHOL/HDL RATIO 4.6 (<4.4); CHOLESTEROL 228 mg/dL; CREATININE 0.7 mg/dL (0.4-1.0); GFR - MDRD 85 (>89); GLUCOSE 90 mg/dL (70-100); HDL CHOLESTEROL 50 mg/dL; LDL CHOLESTEROL,CALCULATED 164 mg/dL; LDL/HDL RATIO 3.3 (<4.4); POTASSIUM 4.2 mmol/L (3.5-5.0); SODIUM 140 mmol/L (135-145); TOTAL PROTEIN 8.3 g/dL (6.7-8.2); TRIGLYCERIDES 71 mg/dL; VLDL CHOLESTEROL 14 mg/dL
== END 2023-02-21 23:59 | disposition home or self-care (01) ==
LOC: LAB.N 08:00
PROVIDERS: ATTEND Physician Assistant
DX: K29.60 Other gastritis without bleeding (principal); K31.A0 Gastric intestinal metaplasia, unspecified; E53.8 Deficiency of other specified B group vitamins; E78.5 Hyperlipidemia, unspecified
CPT/HCPCS: 36415; 80053; 80061; 82607; 82746; 83721; 85025

== ENCOUNTER 2023-09-17 08:05 | Outpatient (CLI) | payer MEDICARE, MEDICAID ==
[2023-09-17 12:37] LABS: ALBUMIN 4.2 g/dL (3.2-5.5); ALKALINE PHOSPHATASE 111 IU/L (42-121); ALT ALANINE AMINOTRANSFERASE 15 IU/L (10-60); AST ASPARTATE AMINOTRANSFERASE 19 IU/L (10-42); BILIRUBIN,TOTAL 0.3 mg/dL (0.2-1.0); BUN - BLOOD UREA NITROGEN 12 mg/dL (6-20); CALCIUM 9.8 mg/dL (8.5-10.3); CARBON DIOXIDE - CO2 30 mmol/L (21-32); CHLORIDE 102 mmol/L (101-111); CHOL/HDL RATIO 3.5 (<4.4); CHOLESTEROL 179 mg/dL; CREATININE 0.8 mg/dL (0.6-1.3); GFR - MDRD 73 (>89); GLUCOSE 102 mg/dL (74-104); HDL CHOLESTEROL 51 mg/dL; LDL CHOLESTEROL,CALCULATED 111 mg/dL; LDL/HDL RATIO 2.2 (<4.4); POTASSIUM 4.1 mmol/L (3.5-4.5); SODIUM 139 mmol/L (135-145); TOTAL PROTEIN 8.6 g/dL (6.4-8.9); TRIGLYCERIDES 84 mg/dL (48-352); VLDL CHOLESTEROL 17 mg/dL
== END 2023-09-17 08:06 | disposition home or self-care (01) ==
LOC: LAB.N 08:05
PROVIDERS: ATTEND Physician Assistant Medical
DX: E78.5 Hyperlipidemia, unspecified (principal)
CPT/HCPCS: 36415; 80053; 80061; 83721

== ENCOUNTER 2023-11-13 07:42 | Emergency (ER) | payer MEDICARE, MEDICAID ==
--- NOTE | 2023-11-13 08:08 | ED Physician Documentation ---
PD HPI HEADACHE - Stated complaint Stated Complaint: MENDZE - Chief complaint Chief Complaint: Neuro - History obtained from History obtained from: Patient - Additional information Additional information: 63-year-old woman with COPD on oxygen and chronic migraines. She usually gets about 3 migraines a month, and was on Emgality, but states the Emgality stopped working and since then her headache frequency and length has been more frequent longer. She has had her current headache since October 19, waxing and waning but ever present. No sudden onset. It is similar in quality to prior migraines and there is no associated fever or neck stiffness. Her neurologist tried some other medication in the office, but it is unclear what it was and it was not helpful, that was on around October 24. 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 : Incontinence HEENT: Chronic vision loss Psych: Depression, Panic attacks Musculoskeletal: Fibromyalgia, Fatigue, Chronic back pain Derm: None - Past Surgical History Past Surgical History: No General: Cholecystectomy, Colonoscopy, EGD /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: Hysterectomy HEENT: Tonsil/Adenoidectomy - Present Medications Home Medications: Ambulatory Orders Medication Instructions Recorded Confirmed Albuterol Sulfate [Proair Hfa 2 puffs INH Q4H PRN 03/02/16 11/13/23 Inhaler] ARIPiprazole [Aripiprazole] 10 mg PO DAILY 08/27/21 11/15/22 Cyanocobalamin [Vitamin B-12] 1,000 mcg IM Q14D 08/27/21 11/13/23 Fluoxetine HCl [Prozac] 80 mg PO DAILY 08/27/21 11/13/23 Levothyroxine [Synthroid] 125 mcg PO QDAC 08/27/21 11/13/23 levETIRAcetam [Keppra] 500 mg PO BID #120 tablet 08/28/21 11/13/23 Atorvastatin [Lipitor] 20 mg PO QPM 11/13/23 11/13/23 Budesonide/Formoterol Fumarate 2 puffs IH DAILY 11/13/23 11/13/23 [Symbicort 160-4.5 Mcg Inhaler] Omeprazole 20 mg PO DAILY 11/13/23 11/13/23 Trazodone HCl 300 mg PO HS 11/13/23 11/13/23 - Allergies Allergies/Adverse Reactions: Allergies Allergy/AdvReac Type Severity Reaction Status Date / Time diazepam [From Valium] Allergy memory loss Verified 11/13/23 07:48 NSAIDS (Non-Steroidal Allergy Unknown Verified 11/13/23 07:48 Anti-Inflamma zolpidem [From Ambien] Allergy sleep Verified 11/13/23 07:48 walking - Social History Does the pt smoke?: No Smoking Status: Former smoker Does the pt drink ETOH?: No Does the pt have substance abuse?: Yes Substance Use and Type: Marijuana - Immunizations Immunizations are current?: Yes - POLST Patient has POLST: No POLST Status: Full Code (Discussed with Pt and she elected for full code) PD ED PE NORMAL - Vitals Vital signs reviewed: Yes - General General: Other (Very thin elderly woman wearing oxygen who appears uncomfortable from headache and light sensitive.) - HEENT HEENT: PERRL, EOMI, Pharynx benign - Neck Neck: Supple, no meningeal sign - Neuro Neuro: Alert and oriented X 3, 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 She was initially administered IV Compazine, magnesium, and Benadryl, on recheck at 9:15 AM headache had gone from a 10 to a 9 and was redosed with subcutaneous Imitrex, IV ketorolac, and droperidol. On reexamination at 9:58 AM she was feeling much better, pain was down to a 5 and she felt that was acceptable for discharge. Departure - Departure Disposition: 01 Home, Self Care Clinical Impression: Migraine Qualifiers: Migraine type: unspecified Status migrainosus presence: with status migrainosus Intractability: intractable Qualified Code(s): G43.911 - Migraine, unspecified, intractable, with status migrainosus Condition: Good Record reviewed to determine appropriate education?: Yes Instructions: ED Headache Migraine Comments: Thankfully we were able to start to get some headway for your headache today but I do recommend you follow-up with your neurologist for next available appointment. Return for new or worsening symptoms. Forms: PCP List
[2023-11-13] MEDS: MAGNESIUM SULFATE 2 GRAM 2 GM/50 ML BAG IV ONE (08:41)
[2023-11-13] MEDS: diphenhydrAMINE INJ 50 MG/ML VIAL IVP STA (08:41)
[2023-11-13] MEDS: PROCHLORPERAZINE 10 MG/2 ML VIAL IVP STA (08:41)
[2023-11-13] MEDS: SODIUM CHLORIDE 0.9% 1,000 ML IV STA (08:41)
[2023-11-13] MEDS: SUMAtriptan 6 MG/0.5 ML VIAL SUBQ STA (09:26)
[2023-11-13] MEDS: DROPERIDOL 5 MG/2 ML VIAL IVP STA (09:27)
[2023-11-13] MEDS: KETOROLAC 15 MG/ML VIAL IVP STA (09:27)
[2023-11-13 10:09] VITALS: BP 118/76; O2SAT 98
== END 2023-11-13 10:27 | disposition home or self-care (01) ==
LOC: ED 07:42
DX: G43.911 Migraine, unspecified, intractable, with status migrainosus (principal); I10 Essential (primary) hypertension; Z87.891 Personal history of nicotine dependence
CPT/HCPCS: 96365; 96366; 96372; 96375; 99283; J1200

== ENCOUNTER 2024-05-18 13:56 | Outpatient (CLI) | payer MEDICARE, MEDICAID ==
--- NOTE | 2024-05-19 12:31 | DEXA Report ---
PROCEDURE: Dexa Spine and/or Hip INDICATIONS: POST MENOPAUSAL TECHNIQUE: Dual energy x-ray absorptiometry (DXA) was performed on a [employer] System. Regions measur ed are the AP Spine, femoral neck, and if needed forearm. COMPARISON: 02/18/2023, 02/21/2022 FINDINGS: Lumbar Spine: Bone Mineral Density: 0.952 g/cm/cm,T score: -1.9. Since the most recent prior study, there has been a statistically significant increase in bone mineral density by 3.4 percent. Left Femoral Neck: Bone Mineral Density: 0.670 g/cm/cm, T score: -2.7. Left Hip: Bone Mineral Density: 0.579 g/cm/cm,T score: -3.4. There has been no statistically significant change in bone mineral density since the prior study. FRAX risk factors: None given. Not reported due to osteoporosis. (T score greater or equal to -1.0: NORMAL) (T score from -1.1 to -2.4: OSTEOPENIA) (T score less than or equal to -2.5 to: OSTEOPOROSIS) Impression: By WHO criteria, this patient has osteoporosis. Interval statistical increase in bone mineral density of the lumbar spine. No statistical interval ch alisa in bone mineral density of the hip. Patients with diagnosis of osteoporosis or osteopenia should have regular bone mineral density assess ment. For those eligible for Medicare, routine testing is allowed once every 2 years. Testing frequ ency can be increased for patients who have rapidly progressing disease or for those who are receivin g medical therapy to restore bone mass. Reviewed by: Talat Parker MD on 05/19/2024 12:30 PM PDT Approved by: Talat aPrker MD on 05/19/2024 12:30 PM PDT Station ID: [id number]
== END 2024-05-18 13:57 | disposition home or self-care (01) ==
LOC: DI 13:56
PROVIDERS: ATTEND Physician Assistant Medical
DX: M81.0 Age-related osteoporosis without current pathological fracture (principal)

== ENCOUNTER 2024-06-23 11:10 | Emergency (ER) | payer MEDICARE, MEDICAID ==
--- NOTE | 2024-06-23 11:51 | ED Physician Documentation ---
PD HPI DYSPNEA - Stated complaint Stated Complaint: LOW O2 - Chief complaint Chief Complaint: Resp - History obtained from History obtained from: Patient - Additional information Additional information: 63-year-old woman who quit smoking in 1994 but has COPD and wears 2 L of oxygen at home. She has a nebulizer at home but has not used it lately. Does have both rescue and maintenance inhalers. For the last week she has been more short of breath than normal. Her cough is not any worse than normal though. She has a baseline cough. And she has noticed some lower sats than usual, mostly with a mbulation. Oxygen was down at 85 this morning. She denies fevers. No pedal edema or calf pain. No chest pain. 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 HEENT: Tonsil/Adenoidectomy - Present Medications Home Medications: Ambulatory Orders Medication Instructions Recorded Confirmed Albuterol Sulfate [Proair Hfa 2 puffs INH Q4H PRN 03/02/16 06/23/24 Inhaler] ARIPiprazole [Aripiprazole] 10 mg PO DAILY 08/27/21 06/23/24 Cyanocobalamin [Vitamin B-12] 1,000 mcg IM Q14D 08/27/21 06/23/24 Fluoxetine HCl [Prozac] 40 mg PO DAILY 08/27/21 06/23/24 Levothyroxine [Synthroid] 125 mcg PO QDAC 08/27/21 06/23/24 levETIRAcetam [Keppra] 500 mg PO BID #120 tablet 08/28/21 06/23/24 Atorvastatin [Lipitor] 20 mg PO QPM 11/13/23 06/23/24 Budesonide/Formoterol Fumarate 2 puffs IH DAILY 11/13/23 06/23/24 [Symbicort 160-4.5 Mcg Inhaler] Omeprazole 20 mg PO DAILY 11/13/23 06/23/24 Trazodone HCl 300 mg PO HS 11/13/23 06/23/24 Doxycycline [Vibramycin] 100 mg PO BID #14 tablet 06/23/24 Gabapentin [Neurontin] 1,200 mg PO HS 06/23/24 06/23/24 predniSONE [Deltasone] 20 mg PO [id number] #21 tab 06/23/24 - Allergies Allergies/Adverse Reactions: Allergies Allergy/AdvReac Type Severity Reaction Status Date / Time diazepam [From Valium] Allergy memory loss Verified 06/23/24 11:15 NSAIDS (Non-Steroidal Allergy Unknown Verified 06/23/24 11:15 Anti-Inflamma zolpidem [From Ambien] Allergy sleep Verified 06/23/24 11:15 walking - Social History Does the pt smoke?: No Smoking Status: Former smoker Does the pt drink ETOH?: No Does the pt have substance abuse?: Yes Substance Use and Type: Marijuana - Immunizations Immunizations are current?: Yes - POLST Patient has POLST: No POLST Status: Full Code (Discussed with Pt and she elected for full code) PD ED PE NORMAL - Vitals Vital signs reviewed: Yes - General General: Alert and oriented X 3, No acute distress - Cardiac Cardiac: RRR, No murmur - Respiratory Respiratory: Other (Rhonchorous throughout but nonlabored) - Abdomen Abdomen: Non tender - Extremities Extremities: No edema, No calf tenderness / cord - Neuro Neuro: Alert and oriented X 3 Results - Vitals Vitals: Vital Signs - 24 hr 06/23/24 06/23/24 11:15 12:11 Temperature 36.6 C Heart Rate 72 60 Respiratory 24 22 Rate Blood Pressure 127/86 H O2 Saturation 93 If not protocol 2 : Oxygen Flow, liters/minute Oxygen O2 Source Nasal cannula Oxygen Flow Rate 2 - Labs Labs: Laboratory Tests 06/23/24 06/23/24 06/23/24 11:58 11:58 11:58 WBC 7.9 RBC 3.60 L Hgb 10.9 L Hct 35.2 L MCV 97.8 MCH 30.3 MCHC 31.0 L RDW 14.1 Plt Count 259 MPV 9.6 Neut # (Auto) 4.6 Lymph # (Auto) 2.0 Bledsoe # (Auto) 0.4 Eos # (Auto) 0.8 H Baso # (Auto) 0.1 Absolute Nucleated RBC 0.00 Nucleated RBC % 0.0 VBG pH 7.373 VBG pCO2 46.6 VBG pO2 44.9 VBG HCO3 26.5 VBG Total CO2 27.9 VBG O2 Saturation 82.7 H VBG Base Excess 0.9 Sodium 136 Potassium 4.3 Chloride 101 Carbon Dioxide 31 Anion Gap 4.0 L BUN 10 Creatinine 0.7 Estimated GFR (MDRD) 85 L Glucose 78 Calcium 9.2 Magnesium 1.9 Total Bilirubin 0.3 AST 13 ALT 8 L Alkaline Phosphatase 87 Total Protein 7.3 Albumin 3.8 Globulin 3.5 Albumin/Globulin Ratio 1.1 - Rads (name of study) Single view chest x-ray showing chronic interstitial changes without acute disease. Relevant Findings:: Final report received, EMP independent interpretation of test PD Medical Decision Making - ED course ED course: This is a very pleasant 63-year-old woman with history of COPD presents with increased shortness of breath and hypoxemia with ambulation. Workup demonstrates mild anemia, has had similar levels in the past. Unremarkable venous blood gas, normal CMP. Nothing in the history or physical to suggest heart failure or PE. She was administered a DuoNeb and steroids. This is a very pleasant 63-year-old woman with history of oxygen dependent COPD who sats have been lower with ambulation recently. Chest x-ray was without obvious pneumonia, and after nebulizer here we walked her in the hallway and she dropped no lower than 92% on her usual 2 L. Departure - Departure Disposition: 01 Home, Self Care Clinical Impression: COPD (chronic obstructive pulmonary disease) with emphysema Qualifiers: Emphysema type: unspecified Qualified Code(s): J43.9 - Emphysema, unspecified Condition: Good Instructions: Emphysema Dc Prescriptions: predniSONE [Deltasone] 20 mg PO [id number] #21 tab Doxycycline [Vibramycin] 100 mg PO BID #14 tablet Comments: I sent your prescription to [facility] in [place]. You were seen today for lower than usual oxygen levels with a COPD flare. This should respond to the steroids and antibiotics and would encourage you to use your nebulizer more. Call your doctor to arrange a follow-up appointment, make the next available appointment. In the interim, return anytime if worse or if new symptoms develop. Forms: PCP List
[2024-06-23 12:07] LABS: BASOPHILS # (AUTO) 0.1 10^3/uL (0.0-0.1); BASOPHILS % (AUTO) 1.3 %; EOSINOPHILS # (AUTO) 0.8 10^3/uL (0.0-0.7); EOSINOPHILS % (AUTO) 10.3 %; HCT - HEMATOCRIT 35.2 % (37.0-47.0); HGB - HEMOGLOBIN 10.9 g/dL (12.0-16.0); LYMPHOCYTES % (AUTO) 24.7 %; MEAN CORPUSCULAR HEMOGLOBIN 30.3 pg (27.0-31.0); MEAN CORPUSCULAR VOLUME 97.8 fL (81.0-99.0); MEAN PLATELET VOLUME 9.6 fL (7.9-10.8); MONOCYTES # (AUTO) 0.4 10^3/uL (0.0-1.0); MONOCYTES % (AUTO) 5.5 %; NEUTROPHILS # (AUTO) 4.6 10^3/uL (1.5-6.6); NEUTROPHILS % (AUTO) 58.1 %; PLT - PLATELET COUNT 259 10^3/uL (130-450); RED CELL DISTRIBUTION WIDTH 14.1 % (12.0-15.0); WHITE BLOOD COUNT 7.9 x10^3/uL (4.8-10.8)
[2024-06-23] MEDS: IPRATROPIUM/ALBUTEROL 3 ML NEB INH STA (12:08)
[2024-06-23 12:09] LABS: VBG BASE EXCESS 0.9 mmol/L (-2 - +2); VBG HCO3 26.5 mmol/L (23-28); VBG OXYGEN SATURATION 82.7 % (60-80); VBG PCO2 46.6 mmHg (41-51); VBG PH 7.373 (7.31-7.41); VBG PO2 44.9 mmHg (25-47); VBG TOTAL CO2 27.9 mmol/L (24-29)
--- NOTE | 2024-06-23 12:17 | XRAY Report ---
PROCEDURE: Chest 1V INDICATIONS: dyspnea TECHNIQUE: One view of the chest was acquired. COMPARISON: 11/20/2022, 08/19/2021. FINDINGS: Surgical changes and devices: None. Lungs and pleura: No pleural effusions or pneumothorax. Chronic interstitial markings. No definite f ocal pulmonary consolidations are seen. Mediastinum: Mediastinal contours appear normal. Heart size is normal. Bones and chest wall: No suspicious bony lesions. Overlying soft tissues appear unremarkable. IMPRESSION: Chronic interstitial changes are present. No definite acute pulmonary process is identified. Reviewed by: Pio Gomez MD on 06/23/2024 12:15 PM PDT Approved by: Pio Gomez MD on 06/23/2024 12:15 PM PDT Station ID: [id number]
[2024-06-23 12:18] LABS: ALBUMIN 3.8 g/dL (3.2-5.5); ALBUMIN/GLOBULIN RATIO 1.1 (1.0-2.2); BILIRUBIN,TOTAL 0.3 mg/dL (0.2-1.0); CALCIUM 9.2 mg/dL (8.5-10.3); CREATININE 0.7 mg/dL (0.6-1.3); MAGNESIUM 1.9 mg/dL (1.7-2.3); POTASSIUM 4.3 mmol/L (3.5-4.5); TOTAL PROTEIN 7.3 g/dL (6.4-8.9)
[2024-06-23] MEDS: DEXAMETHASONE 10 MG/ML VIAL IVP STA (12:27)
[2024-06-23 13:18] VITALS: O2SAT 94
[2024-06-23 13:52] VITALS: BP 109/76
== END 2024-06-23 13:40 | disposition home or self-care (01) ==
LOC: ED 11:10
DX: J44.1 Chronic obstructive pulmonary disease with (acute) exacerbation (principal); J43.9 Emphysema, unspecified; Z87.891 Personal history of nicotine dependence; Z99.81 Dependence on supplemental oxygen
CPT/HCPCS: 36415; 80053; 82803; 83735; 85025; 94640; 96374; 99284